=== PATIENT | male | born 1980 | race Caucasian/White ===

== ENCOUNTER → 2023-04-08 10:45 | Outpatient (BNVA) | payer OTHER, SELFPAY | PROVIDERS: PCP Internal Medicine Endocrinology, Diabetes & Metabolism; Visit Provider Physician Assistant | DX: S52.602A Unspecified fracture of lower end of left ulna, initial encounter for closed fracture (principal); W01.0XXA Fall on same level from slipping, tripping and stumbling without subsequent striking against object, initial encounter | CPT/HCPCS: 99204 ==

== ENCOUNTER 2023-04-09 08:30 | Outpatient (AMB) | payer OTHER, SELFPAY ==
--- NOTE | 2023-04-09 08:31 | A.OFFVIS_ITS ---
Intake Vital Signs 04/09/23 08:40 Height 5 ft 10 in Weight 180 lb BMI 25.8 Handedness Left Intake Visit Reasons: FC- LT Wrist DOI 04/08/23 Intake Note: Jermain is a 42 year old left hand dominant male who presents today for a fracture care appointment for his left wrist fx, DOI 04/08/23. Patient reports when he was stripping floors he slipped and fell landing on his back and on his left hand. He states having a lot of stiffness and pain on the dorsal aspect of the wrist. Denies numbness and tingling. Allergies No Known Allergies Allergy (Mild, Verified 04/09/23 08:37) N/A HPI FC- LT Wrist DOI 04/08/23 HPI Details 42-year-old left hand dominant male who presents in the office today, as a new patient, for an evaluation of left wrist pain. The patient reports on 04/18/2023 he was stripping floors when he slipped and fell landing on his back and left hand. He claims to be stiff with pain on the dorsal aspect of the wrist. He denies numbness or tingling. 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 Review of Systems Const All systems reviewed & are unremarkable except as noted in HPI and below Physical Exam Vital Signs: BMI result Body Mass Index 25.8 Const General: cooperative and no acute distress Orientation/consciousness: patient oriented x3 HEENT Head: Yes normal to inspection, Yes normocephalic and Yes atraumatic Eyes General: appearance normal, both eyes and all related structures Resp Effort & Inspection: normal respiratory effort and able to speak in complete sentences Cardio Rate: regular rate Peripheral pulses: Peripheral pulses 2+ throughout GI Palpation (GI): Soft to palpation Skin Lesions: no lesions Rashes: no rashes Neuro General: patient oriented x3 Extrem Other: Left wrist: Mild to moderate circumferential edema. Lacking about 2 cm from making a closed fist. Able to extend fully. Able to pronate, supinate, abduction and adduction without deficits. Denies numbness or tingling. Tenderness to palpation distal radius. Psych Mental Status: mental status grossly normal Office Procedures Casting/Splints [id number] Splint Application Procedure code (CPT) selection complete Assessment & Plan Assessment & Plan (1) Fracture of left distal radius: Comment: intra-articular fracture distal radius Code(s): S52.502A - Unspecified fracture of the lower end of left radius, initial encounter for closed fracture (2) Fracture of styloid process of left ulna: Code(s): S52.612A - Displaced fracture of left ulna styloid process, initial encounter for closed fracture Plan Mr. Pittman is a 42-year-old left hand dominant male who presents in the office today, as a new patient, for an evaluation of left wrist pain. The patient reports on 04/18/2023 he was stripping floors when he slipped and fell landing on his back and left hand. He claims to be stiff with pain on the dorsal aspect of the wrist. He denies numbness or tingling. The patient was placed in a volar splint, off the shelf, while in the office today. This will allow for him to have a decrease in edema. He was given a work note stating no use of left upper extremity until further evaluation with Dr. Cantrell. He will return to the office on Wednesday to be seen by Dr. Cantrell. Follow up will be on 04/13/2023, with Dr. Cantrell, or sooner if needed. X-rays of the left wrist which were obtained while in the office today and were reviewed by me, Vandana Montenegro PA-C, revealed an intra-articular fracture distal radius and ulnar styloid fracture. Patient Instructions: Scribed for Vandana Montenegro PA-C by Demi Burrows medical office manager, on 04/09/2023 at 8:34 am, EST. Your attestation Coding Level of Care Code New Pt Level 4 (52697) Diagnoses Fracture of left distal radius S52.502A Fracture of styloid process of left ulna S52.612A CPT Codes Splint - CPT: 33250-[id number] Splint Application ([id number])
[2023-04-09 08:40] VITALS: BMI 25.8
== END 2023-04-09 09:31 | disposition home or self-care (01) ==
PROVIDERS: PCP Internal Medicine Endocrinology, Diabetes & Metabolism; Visit Provider Physician Assistant
DX: S52.502A Unspecified fracture of the lower end of left radius, initial encounter for closed fracture (principal); S52.612A Displaced fracture of left ulna styloid process, initial encounter for closed fracture; W01.0XXA Fall on same level from slipping, tripping and stumbling without subsequent striking against object, initial encounter; Y99.0 Civilian activity done for income or pay
CPT/HCPCS: 99204

== ENCOUNTER → 2023-04-09 08:30 | Outpatient (BNVA) | payer OTHER, SELFPAY | PROVIDERS: PCP Internal Medicine Endocrinology, Diabetes & Metabolism; Visit Provider Physician Assistant | DX: M25.532 Pain in left wrist (principal); S52.572A Other intraarticular fracture of lower end of left radius, initial encounter for closed fracture; S52.612A Displaced fracture of left ulna styloid process, initial encounter for closed fracture; W01.0XXA Fall on same level from slipping, tripping and stumbling without subsequent striking against object, initial encounter; Y93.E5 Activity, floor mopping and cleaning; Y92.9 Unspecified place or not applicable; Y99.0 Civilian activity done for income or pay | CPT/HCPCS: 99202 ==

== ENCOUNTER 2023-04-13 10:25 | Outpatient (REF) | payer OTHER, SELFPAY ==
--- NOTE | ~2023-04-13 | XR_ITS ---
EXAMINATION: XR WRIST, LEFT CLINICAL INFORMATION: Pain left wrist COMPARISON: Left wrist with scaphoid view 04/08/2023. TECHNIQUE: PA, lateral, and oblique views of the left wrist. FINDINGS: There is a vertical distal radial metaphyseal fracture extending to the articular surface with no callus formation seen yet. Basal distal volar radial bone likely deformity secondary to displacement. It is stable. There is an old ulnar styloid process fracture. The carpal bones are intact. Moderate dorsal soft tissue swelling is present. XR/XR wrist LT min 3V IMPRESSION: 1. Vertical distal radial metaphyseal fracture with intra-articular extension. No callus formation seen yet. There is moderate dorsal soft tissue swelling. 2. There is an old ulnar styloid process fracture.
== END 2023-04-13 10:26 | disposition home or self-care (01) ==
LOC: HO.HOSX 10:25
PROVIDERS: PCP Internal Medicine Endocrinology, Diabetes & Metabolism; Visit Provider Orthopaedic Surgery
DX: S52.502A Unspecified fracture of the lower end of left radius, initial encounter for closed fracture (principal); S52.612A Displaced fracture of left ulna styloid process, initial encounter for closed fracture
CPT/HCPCS: 25600; 73110

== ENCOUNTER 2023-04-13 10:25 | Outpatient (AMB) | payer OTHER, SELFPAY ==
--- NOTE | 2023-04-13 10:33 | A.OFFVIS_ITS ---
Intake Vital Signs 04/13/23 10:34 Height 5 ft 10 in Weight 180 lb BMI 25.8 Intake Visit Reasons: ov-LT Wrist DOI 04/08/23 Intake Note: Jermain 42 yr old male presents today for his left wrist pain/ injury from 04/08/23. Patient reports when he was stripping floors he slipped and fell landing on his back and on his left hand. He states having a lot of stiffness and pain on the dorsal aspect of the wrist. Seen in office with Zi Montenegro on 04/09/23 who gave patient a wrist brace. Patient here for further evaluation with Dr. Cantrell. Allergies No Known Allergies Allergy (Mild, Verified 04/13/23 10:40) N/A HPI ov-LT Wrist DOI 04/08/23 HPI Details Jermain is a 42 year old right hand dominant man who presents for a follow-up of his left wrist injury, DOI: 04/08/23. This is a worker's comp injury. 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 He was seen by workers comp and referred here. He was seen by SUE Ross on 04/09/23 and given a wrist brace to wear. He follows up today with complaints of continued pain and stiffness in his wrist. He says his left wrist has been bothering him with pain & stiffness for years since his initial break. He rides a motorcycle and says this is very difficult for him to do with his left wrist. 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 This was done in here by Dr. Rivas. He has had several surgeries after this. He reports having a right wrist ORIF in the past, which healed well. He has some right wrist stiffness but this is not particularly limiting for him He denies any smoking or vaping. 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 Review of Systems Const All systems reviewed & are unremarkable except as noted in HPI and below Physical Exam Vital Signs: BMI result Body Mass Index 25.8 Const General: cooperative, healthy appearing and no acute distress Orientation/consciousness: patient oriented x3 HEENT Head: Yes normocephalic and Yes atraumatic Eyes EOM: EOMs intact bilaterally Resp Effort & Inspection: normal respiratory effort and able to speak in complete sentences Cardio Jugular venous distension: no JVD Skin General skin exam: turgor normal Rashes: no rashes Neuro General: patient oriented x3 Extrem Other: Evaluation of Left Upper Extremity: The patient is alert, oriented, and in no acute distress Neuro: Median, Ulnar, Radial nerves motor and sensory intact and sensation is normal to the tips of all digits Vascular: Cap refill brisk ROM: He can make a fist and extend all his digits Skin: No lacerations or abrasions. He has a right volar wrist incision consistent with an ORIF General: Mild snuffbox tenderness No tenderness over the scaphoid tubercle Focal swelling over radiocarpal joint Most TTP over dorsal aspect of lunate facet Not really tender over radial styloid No tenderness over he ulnar styloid No tenderness along the entire length of the ulna No pain with proximal forearm squeeze Some swelling directly over the radiocarpal joint, well localized Radiographs: 3 views of the left wrist were taken and viewed by me today in clinic. They show a left intra-articular distal radius fracture involving the lunate facet, which appears to be minimally displaced. However this is an acute on chronic fracture, he has evidence of an old distal radius fracture with some shortening, loss of radial inclination, and roughly about neutral on the lateral view. He also has a new, non-displaced ulnar styloid fracture and a question of a possible non- displaced scaphoid fracture. Psych Appearance: grossly normal Affect: normal affect Attitude: cooperative Office Procedures Fracture Care Details: Left distal radius [id number] Fracture Billing Code: Fracture Billing Code Assessment & Plan Assessment & Plan (1) Fracture of left distal radius: Comment: intra-articular fracture distal radius Code(s): S52.502A - Unspecified fracture of the lower end of left radius, initial encounter for closed fracture (2) Fracture of styloid process of left ulna: Code(s): S52.612A - Displaced fracture of left ulna styloid process, initial encounter for closed fracture Plan Assessment & Plan: 1. Left distal radius fracture involving the lunate facet, intra-articular This is an acute on chronic fracture, with a hx of multiple previous wrist fractures & surgeries With old healed shortening and loss of radial inclination, at neutral on the lateral view 2. Possible left scaphoid waist fracture, non-displaced DOI: 04/08/23 No tenderness over the scaphoid tubercle This is a workplace injury I educated him and his about this condition I discussed operative and non-operative treatment options We will manage this non-operatively He was placed in a short arm cast I discussed activity modification, he is to lift nothing heavier than a cellph one He will work on gentle finger ROM exercises at home He was given a note for work allowing him to return on light duty, with no use of his LUE for at least the next 4 weeks. 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 He thinks he can return to work at the [employer] just pushing buttons with his right hand He will follow up in 3-4 weeks, with X-rays 3V L wrist + scaphoid, OOP Scribed for Brina Cantrell MD by Ángel Weaver, biomedical engineering supervisor, on 04/13/23 at 11:50 AM, EST. Coding Level of Care Code Est Pt Level 3 (19974) Diagnoses Fracture of left distal radius S52.502A Fracture of styloid process of left ulna S52.612A CPT Codes Fracture Care - Fracture Billing Code: Fracture Billing Code ([id number])
[2023-04-13 10:34] VITALS: BMI 25.8
== END 2023-04-13 12:14 | disposition home or self-care (01) ==
PROVIDERS: PCP Internal Medicine Endocrinology, Diabetes & Metabolism; Visit Provider Orthopaedic Surgery
DX: S52.572A Other intraarticular fracture of lower end of left radius, initial encounter for closed fracture (principal); S52.615A Nondisplaced fracture of left ulna styloid process, initial encounter for closed fracture
CPT/HCPCS: 25600; 99213

== ENCOUNTER 2023-05-11 04:59 | Outpatient (REF) | payer OTHER, SELFPAY ==
--- NOTE | ~2023-05-11 | XR_ITS ---
EXAMINATION: XR WRIST, LEFT CLINICAL INFORMATION: Left wrist pain. COMPARISON: 04/13/2023 TECHNIQUE: 4 views of the left wrist. FINDINGS: Generalized osteopenia is present. Again seen is a reticular fracture of the distal radius with some mild impaction. There is mild ventral angulation of the distal fracture fragment. There is some increased sclerosis seen since the prior study which may be secondary to some healing. An old ulnar styloid fracture is again seen. XR/XR wrist LT w scaphoid IMPRESSION: Distal radial fracture with some mild impaction and ventral angulation. Some increased sclerosis has occurred over the past month indicating some healing.
== END 2023-05-11 05:00 | disposition home or self-care (01) ==
LOC: HO.HOSX 04:59
PROVIDERS: Visit Provider Orthopaedic Surgery
DX: M25.532 Pain in left wrist (principal)
CPT/HCPCS: 73110

== ENCOUNTER 2023-05-12 09:48 | Outpatient (AMB) | payer OTHER, SELFPAY ==
[2023-05-12 10:21] VITALS: BMI 25.8
--- NOTE | 2023-05-12 10:21 | A.OFFVIS_ITS ---
Intake Vital Signs 05/12/23 10:21 Height 5 ft 10 in Weight 180 lb BMI 25.8 Intake Visit Reasons: ov-LT Wrist DOI 04/08/23 cast off/xrays Intake Note: Jermain 42 yr old male presents today for his follow up visit for his left wrist injury from 04/08/23 s/p stripping floors, slipped and fell landing on his back & on his left hand. Cast removed and xrays updated in office. Allergies No Known Allergies Allergy (Mild, Verified 05/12/23 10:28) N/A HPI ov-LT Wrist DOI 04/08/23 cast off/xrays HPI Details Jermain is a 42 year old right hand dominant man who presents for a follow-up of his left distal radius fracture, DOI: 04/08/23. This is a worker's comp injury. 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 He was seen by workers comp and referred here. He says his wrist pain has improved. 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 This was done in here by Dr. Rivas. He has had several surgeries after this. He says his left wrist has been bothering him with pain & stiffness for years since his initial break. He rides a motorcycle and says this is very difficult for him to do with his left wrist. He reports having a right wrist ORIF in the past, which healed well. He has some right wrist stiffness but this is not particularly limiting for him He denies any smoking or vaping. 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 Physical Exam Vital Signs: BMI result Body Mass Index 25.8 Const General: cooperative, healthy appearing and no acute distress Orientation/consciousness: patient oriented x3 HEENT Head: Yes normocephalic and Yes atraumatic Eyes EOM: EOMs intact bilaterally Resp Effort & Inspection: normal respiratory effort and able to speak in complete sentences Cardio Jugular venous distension: no JVD Skin General skin exam: turgor normal Rashes: no rashes Neuro General: patient oriented x3 Extrem Other: Evaluation of Left Upper Extremity: The patient is alert, oriented, and in no acute distress Neuro: Median, Ulnar, Radial nerves motor and sensory intact and sensation is normal to the tips of all digits Vascular: Cap refill brisk ROM: He can make a fist and extend all his digits He can pronate to ~70 degrees He can supinate to neutral Skin: No lacerations or abrasions. He has a right volar wrist incision consistent with an ORIF General: No snuffbox or scaphoid tubercle tenderness No tenderness over the fracture site Radiographs: 3 views of the left wrist + a scaphoid view were taken and viewed by me today in clinic. They show a left intra-articular distal radius fracture involving the lunate facet, which appears to be minimally displaced with good evidence of interval bony healing and no intra-articular step-off. He also has ~3 degrees dorsal tilt seen on the lateral view. However this is an acute on chronic fracture, he has evidence of an old distal radius fracture with some shortening, loss of radial inclination, and roughly about neutral on the lateral view. He also has a new, non-displaced ulnar styloid fracture and a question of a possible non-displaced scaphoid fracture. Psych Appearance: grossly normal Affect: normal affect Attitude: cooperative Assessment & Plan Assessment & Plan (1) Fracture of left distal radius: Comment: intra-articular fracture distal radius Code(s): S52.502A - Unspecified fracture of the lower end of left radius, initial encounter for closed fracture (2) Fracture of styloid process of left ulna: Code(s): S52.612A - Displaced fracture of left ulna styloid process, initial encounter for closed fracture Plan Assessment & Plan: 1. Left distal radius fracture involving the lunate facet, intra-articular This is an acute on chronic fracture, with a hx of multiple previous wrist fractures & surgeries With old healed shortening and loss of radial inclination, at neutral on the lateral view 2. Possible left scaphoid waist fracture, non-displaced DOI: 04/08/23 No tenderness over the scaphoid tubercle This is a workplace injury I educated him and his about this condition I discussed operative and non-operative treatment options We will manage this non-operatively He was fitted for a velcro to be worn like a cast except for a showering, until his next appointment I discussed activity modification, he is to lift nothing heavier than a cellphone He will continue to work on finger ROM exercises at home He will begin to work on gentle wrist pronosupination while in his wrist splint. I demonstrated supination exercises he can perform He was given a note for work allowing him to continue on light duty, with a 2lb weight limit with his LUE for at least the next 4 weeks. 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 He is going to speak with his school employer about possible light duty. He has been working his part-time job at a [employer] I ordered a CT scan of his left wrist, with fine cuts through the scaphoid, to assess for a possible scaphoid fracture He will follow up when completed for review. This should be a 30 minute appointment Scribed for Brina Cantrell MD by Ángel Weaver, medical coordinator pesticide use, on 05/12/23 at 11:00 AM, EST. Orders: Orders XR wrist LT w scaphoid Today M25.532 - Pain in left wrist CT wrist LT wo IV con Today S52.502A - Unspecified fracture of the lower end of left radius, initial encounter for closed fracture, S52.612A - Displaced frac ture of left ulna styloid process, initial encounter for closed fracture Coding Level of Care Code Global (25299) Diagnoses Fracture of left distal radius S52.502A Fracture of styloid process of left ulna S52.612A
== END 2023-05-12 11:09 | disposition home or self-care (01) ==
PROVIDERS: PCP Internal Medicine; Visit Provider Orthopaedic Surgery
DX: S52.502A Unspecified fracture of the lower end of left radius, initial encounter for closed fracture (principal); S52.612A Displaced fracture of left ulna styloid process, initial encounter for closed fracture
CPT/HCPCS: 99024

== ENCOUNTER → 2023-05-12 09:48 | Outpatient (BNVA) | payer OTHER, SELFPAY | PROVIDERS: PCP Internal Medicine; Visit Provider Orthopaedic Surgery ==

== ENCOUNTER 2023-05-21 15:31 | Outpatient (REF) | payer OTHER, SELFPAY ==
--- NOTE | ~2023-05-21 | CT_ITS ---
EXAMINATION: CT WRIST WITHOUT CONTRAST, LEFT CLINICAL INFORMATION: S52.612A - Displaced fracture of left ulna styloid process, initial encounter. Additional Notes/Special Instructions Distal radius and distal ulna acute on subacute fractures that are healing. Please evaluate for possible occult scaphoid fracture, fine cuts through scaphoid is what is needed. COMPARISON: Radiograph dated 05/13/2023 TECHNIQUE: Multidetector volumetric imaging was obtained through the left wrist without contrast. Multiplanar reformatted images in coronal and sagittal orientations were submitted. This CT examination was performed using dose optimization techniques as appropriate, variously including the following: *Automated exposure control *Adjustment of mA and/or kV according to patient size (this includes techniques or standardized protocols for targeted exams where dose is matched to indication/reason for exam; i.e. extremities or head) *Use of iterative reconstruction technique DLP: 114 mGy-cm FINDINGS: Bones are osteopenic. There is a subacute to chronic comminuted intra-articular fracture at the distal radius with loss of radial height and inclination is a result of impaction along the fracture lines. There is osseous bridging, sclerosis, and remodeling along the fracture lines, consistent with incomplete healing. Articular cortical step-off measures up to 2 mm dorsally. There is dorsal tilt of the distal radial articular surface, measuring 22 degrees . There are 2 chronic appearing fractures of the ulnar styloid, one of which appears partially united. No additional fractures are identified. The scaphoid is intact. 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 No erosions. Soft tissues are swollen at the wrist. There is a joint effusion. CT/CT wrist LT wo IV con IMPRESSION: 1. Subacute to chronic comminuted intra-articular fracture of the distal radius with mild articular cortical step-off and dorsal tilt of the distal radial articular surface. 2. Chronic ulnar styloid fractures. 3. No acute fracture or malalignment at the scaphoid. 4. 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
== END 2023-05-21 15:32 | disposition home or self-care (01) ==
LOC: HO.CT 15:31
PROVIDERS: Visit Provider Orthopaedic Surgery
DX: S52.502A Unspecified fracture of the lower end of left radius, initial encounter for closed fracture (principal); S52.612A Displaced fracture of left ulna styloid process, initial encounter for closed fracture
CPT/HCPCS: 73200

== ENCOUNTER 2023-05-25 10:21 | Outpatient (AMB) | payer OTHER, SELFPAY ==
--- NOTE | 2023-05-25 10:27 | MHC.OFFVIS ---
Intake Intake Visit Reasons: OV-LT Wrist DOI 04/08/23 Intake Note: Jermain 42 yr old male who is left hand dominant, presents today for his CT review of his left wrist to assess for a possible scaphoid fracture. Allergies No Known Allergies Allergy (Mild, Verified 05/25/23 10:35) N/A HPI OV-LT Wrist DOI 04/08/23 HPI Details Jermain is a 42 year old left hand dominant man who presents for a CT scan review of his left distal radius fracture, DOI: 04/08/23. This is a worker's comp injury. 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 He was seen by workers comp and referred here. He has occasional pain that radiates from his wrist up his arm. He says he has been wearing his velcro wrist splint, as instructed. He has been working on wrist ROM exercises in his splint at home He denies any smoking or vaping. 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 He has not been working as a vice president global advertising sales as he cannot return on light duty. 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 Physical Exam Const General: cooperative, healthy appearing and no acute distress Orientation/consciousness: patient oriented x3 HEENT Head: Yes normocephalic and Yes atraumatic Eyes EOM: EOMs intact bilaterally Resp Effort & Inspection: normal respiratory effort and able to speak in complete sentences Cardio Jugular venous distension: no JVD Skin General skin exam: turgor normal Rashes: no rashes Neuro General: patient oriented x3 Extrem Other: Evaluation of Left Upper Extremity: The patient is alert, oriented, and in no acute distress Neuro: Median, Ulnar, Radial nerves motor and sensory intact and sensation is normal to the tips of all digits Vascular: Cap refill brisk ROM: He can make a tight fist with good strength and no pain, and extend all his digits He can pronate to ~80 degrees He can supinate to ~45 degrees H can flex to ~45 degrees He can extend to ~40 degrees Skin: No lacerations or abrasions. He has a right volar wrist incision consistent with an ORIF General: No snuffbox or scaphoid tubercle tenderness Fracture site not particularly tender DRUJ is stable CT scan: CT/CT wrist LT wo IV con IMPRESSION: 1.? Subacute to chronic comminuted intra-articular fracture of the distal radius with mild articular cortical step-off and dorsal tilt of the distal radial articular surface. 2.? Chronic ulnar styloid fractures. 3.? No acute fracture or malalignment at the scaphoid. 4.? 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 ? Dictated By: ivonne 05/22/23 Psych Appearance: grossly normal Affect: normal affect Attitude: cooperative Assessment & Plan Assessment & Plan (1) Fracture of left distal radius: Comment: intra-articular fracture distal radius Code(s): S52.502A - Unspecified fracture of the lower end of left radius, initial encounter for closed fracture (2) Fracture of styloid process of left ulna: Code(s): S52.612A - Displaced fracture of left ulna styloid process, initial encounter for closed fracture Plan Assessment & Plan: 1. Left distal radius fracture involving the lunate facet, intra-articular DOI: 04/08/23 This is a workplace injury 2. Concern at last visit regarding Possible occult left scaphoid fracture No scaphoid waist fracture seen on CT scan This is an acute on chronic distal radius fracture, with a hx of multiple previous wrist fractures & surgeries With old healed shortening and loss of radial inclination, and CT scan shows ~15 degrees dorsal tilt The fracture appears that it is still healing. I educated him about this condition He will continue to wear his velcro wrist splint only with activities prone to falling, but is to discontinue it with daily activity and at night. I discussed activity modification, he will continue to work on wrist ROM exercises at home I ordered OT hand therapy to work on wrist ROM and normalizing function He was given a note for work instructing him to continue on light duty, with a 2lb weight limit with his LUE for the next 4 weeks. 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 He does say he performs most of his heavy work with his right hand He has been able to work at the [employer] where the physical part of his job is pushing a button. 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 He will follow up in 4 weeks for a ROM check. I anticipate a return to full duty at his next appointment This can be done with a PA. No X-rays needed unless he has new pain Scribed for Brina Cantrell MD by Ángel Weaver, medical surgical tech, on 05/25/23 at 11:00 AM, EST. Orders: Orders OT Evaluation and Treatment Today S52.502A - Unspecified fracture of the lower end of left radius, initial encounter for closed fracture, S52.612A - Displaced fracture of left ulna styloid process, initial encounter for closed fracture Coding Level of Care Code Global (08704) Diagnoses Fracture of left distal radius S52.502A Fracture of styloid process of left ulna S52.612A
== END 2023-05-25 11:13 | disposition home or self-care (01) ==
PROVIDERS: PCP Internal Medicine; Visit Provider Orthopaedic Surgery
DX: S52.502A Unspecified fracture of the lower end of left radius, initial encounter for closed fracture (principal); S52.612A Displaced fracture of left ulna styloid process, initial encounter for closed fracture
CPT/HCPCS: 99024

== ENCOUNTER → 2023-05-25 10:21 | Outpatient (BNVA) | payer OTHER, SELFPAY | PROVIDERS: PCP Internal Medicine; Visit Provider Orthopaedic Surgery ==

== ENCOUNTER 2023-06-16 10:30 | Outpatient (RCR) | payer OTHER, SELFPAY ==
--- NOTE | 2023-06-08 11:11 | MHC.OT.EP ---
[address] [phone] Occupational Therapy Plan of Care Patient Name: Jermain Pittman Date of Evaluation: 06/08/23 Diagnosis: Left distal radius fracture, with a hx of multiple previous wrist fractures & surgeries With old healed shortening and loss of radial inclination, and CT scan shows ~15 degrees dorsal tilt The fracture appears that it is still healing. Pain Location: 3/10 Ulnar wrist and base thumb Pain Score: 3 Pain Scale Used: Numeric (0 - 10) Aggravating Factors: Pushing on left hand , pinching and gripping. Alleviating Factors: Avoiding what is uncomfortable Assessment: Pt is a 42 yo male 9 weeks s/p left DR fracture with underlying old wrist fractures. 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 Pt will benefit from OT to progress strengthening and functional use of his left dominant hand and wrist. 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 Thank you once again for your referral.
--- NOTE | 2023-06-24 11:47 | MHC.OT.DC ---
[address] [phone] F: [phone] Occupational Therapy Discharge Note Patient Name: Jermain Pittman Provider: Brina Cantrell Diagnosis: Left distal radius fracture, with a hx of multiple previous wrist fractures & surgeries With old healed shortening and loss of radial inclination, and CT scan shows ~15 degrees dorsal tilt The fracture appears that it is still healing. Date of Surgery: Date of Evaluation: 06/08/23 Date of Discharge: 06/24/23 Treatments to Date: 3 Cancellations to Date: 1 No Shows to Date: 2 Discharge Status: Recommend MD Follow-up Visit Non-compliance Discharge Summary: Pain low /10, ROM WFL . Pt is indep with his HEP for ROM and gentle strengthening. Electronically Signed By: Radha Blas OT CHT CLT Reviewed/agree with student documentation: Therapist: Please Sign and return to therapist, thank you for your referral.
== END 2023-06-24 11:48 | disposition home or self-care (01) ==
LOC: HO.OT 10:30
PROVIDERS: PCP Internal Medicine; Visit Provider Orthopaedic Surgery
DX: S52.612D Displaced fracture of left ulna styloid process, subsequent encounter for closed fracture with routine healing (principal); S52.502D Unspecified fracture of the lower end of left radius, subsequent encounter for closed fracture with routine healing
CPT/HCPCS: 97110; 97166

== ENCOUNTER 2023-06-22 09:47 | Outpatient (AMB) | payer OTHER, SELFPAY ==
[2023-06-22 09:55] VITALS: BMI 25.8
--- NOTE | 2023-06-22 09:55 | MHC.OFFVIS ---
Intake Vital Signs 06/22/23 09:55 Height 5 ft 10 in Weight 180 lb BMI 25.8 Handedness Left Intake Visit Reasons: OV-LT Wrist DOI 04/08/23 Intake Note: Jermain is a 42 year old left hand dominant male who presents today for a follow up appointment for his left wrist fx, DOI 04/08/23. Patient reports having discomfort on the ulnar side of the hand. He states that his wrist feels better than before. Denies numbness and tingling. Allergies No Known Allergies Allergy (Mild, Verified 06/22/23 09:55) N/A HPI OV-LT Wrist DOI 04/08/23 HPI Details 42-year-old left hand dominant male who presents in the office today for a follow up of left distal radius fracture. The patient reports discomfort on the ulnar side of the left hand. He states his wrist feels better then before. He denies numbness or tingling. This is a worker?s compensation injury. 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 Review of Systems Const All systems reviewed & are unremarkable except as noted in HPI and below Physical Exam Vital Signs: BMI result Body Mass Index 25.8 Const General: cooperative, healthy appearing and no acute distress Orientation/consciousness: patient oriented x3 HEENT Head: Yes normocephalic and Yes atraumatic Eyes EOM: EOMs intact bilaterally Resp Effort & Inspection: normal respiratory effort and able to speak in complete sentences Cardio Jugular venous distension: no JVD Rate: regular rate Peripheral pulses: Peripheral pulses 2+ throughout GI Palpation (GI): Soft to palpation Skin General skin exam: turgor normal Lesions: no lesions Rashes: no rashes Neuro General: patient oriented x3 Extrem Other: Prior surgical scar over the volar aspect of the wrist consistant with ORIF No snuffbox or scaphoid tubercle tenderness No tenderness to palpation over the fracture site DRUJ is stable Sensation intact Cap refill brisk Able to make a fist with good strength and no pain, and extend all his digits to end range. He can pronate to ~80 degrees He can supinate to ~45 degrees H can flex to ~45 degrees He can extend to ~40 degrees Psych Appearance: grossly normal Affect: normal affect Attitude: cooperative Assessment & Plan Assessment & Plan (1) Fracture of left distal radius: Comment: intra-articular fracture distal radius Code(s): S52.502A - Unspecified fracture of the lower end of left radius, initial encounter for closed fracture Qualifiers: Encounter type: subsequent encounter Fracture healing: with routine healing Fracture morphology: unspecified fracture morphology Fracture type: closed Qualified Code(s): S52.502D - Unspecified fracture of the lower end of left radius, subsequent encounter for closed fracture with routine healing (2) Fracture of styloid process of left ulna: Code(s): S52.612A - Displaced fracture of left ulna styloid process, initial encounter for closed fracture Qualifiers: Encounter type: subsequent encounter Fracture alignment: nondisplaced Fracture healing: with routine healing Fracture type: closed Qualified Code(s): S52.615D - Nondisplaced fracture of left ulna styloid process, subsequent encounter for closed fracture with routine healing Plan Mr. Pittman is a 42-year-old left hand dominant male who presents in the office today for a follow up of left distal radius fracture. The patient reports discomfort on the ulnar side of the left hand. He states his wrist feels better then before. He denies numbness or tingling. This is a worker?s compensation injury. 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 Follow up will be PRN, or sooner if needed. Patient Instructions: Scribed for Vandana Montenegro PA-C by Demi Burrows bio medical technician, on 06/22/2023 at 9:50 am, EST. Coding Level of Care Code Est Pt Level 3 (51881) Diagnoses Closed fracture of distal end of left radius with routine healing, unspecified fracture morphology, subsequent encounter S52.502D Encounter type: subsequent encounter Fracture healing: with routine healing Fracture morphology: unspecified fracture morphology Fracture type: closed Closed nondisplaced fracture of styloid process of left ulna with routine healing, subsequent encounter S52.615D Encounter type: subsequent encounter Fracture alignment: nondisplaced Fracture healing: with routine healing Fracture type: closed
== END 2023-06-22 10:07 | disposition home or self-care (01) ==
PROVIDERS: PCP Internal Medicine; Visit Provider Physician Assistant
DX: S52.502D Unspecified fracture of the lower end of left radius, subsequent encounter for closed fracture with routine healing (principal); S52.615D Nondisplaced fracture of left ulna styloid process, subsequent encounter for closed fracture with routine healing; Z04.3 Encounter for examination and observation following other accident
CPT/HCPCS: 99024

== ENCOUNTER → 2023-06-22 09:47 | Outpatient (BNVA) | payer OTHER, SELFPAY | PROVIDERS: PCP Internal Medicine; Visit Provider Physician Assistant | DX: S52.502D Unspecified fracture of the lower end of left radius, subsequent encounter for closed fracture with routine healing (principal); S52.615D Nondisplaced fracture of left ulna styloid process, subsequent encounter for closed fracture with routine healing | CPT/HCPCS: 99212 ==

== ENCOUNTER 2023-10-01 09:19 | Outpatient (REF) | payer OTHER, SELFPAY ==
--- NOTE | ~2023-10-01 | XR_ITS ---
EXAMINATION: XR HAND, RIGHT CLINICAL INFORMATION: Pain COMPARISON: Chest radiograph dated 11/15/2014 TECHNIQUE: PA, lateral, and oblique views of the right hand. FINDINGS: Nondisplaced diagonally oriented fracture of the diaphysis of the fourth proximal phalanx with surrounding soft tissue edema. Minimally displaced fracture of the proximal end of the fifth middle phalanx with extension into the proximal interphalangeal joint space with associated soft tissue edema. Intact plate and screw fixation hardware within the distal radial diaphysis and epiphysis, unchanged in position. No periprosthetic lucency. 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 No acute fracture or dislocation in the wrist. Redemonstration of tiny ossific focus just distal to the scaphoid. The joint spaces are maintained. XR/XR hand RT min 3V IMPRESSION: 1. Minimally displaced fracture of the fifth middle phalanx with extension into the proximal interphalangeal joint space and associated soft tissue edema. 2. Nondisplaced fracture of the diaphysis of the fourth proximal phalanx with associated soft tissue edema. 3. Intact plate and screw fixation of the distal radius.
== END 2023-10-01 09:20 | disposition home or self-care (01) ==
LOC: HO.HOSX 09:19
PROVIDERS: Visit Provider Physician Assistant
DX: Z13.89 Encounter for screening for other disorder (principal)

== ENCOUNTER 2023-10-05 10:07 | Outpatient (AMB) | payer OTHER, SELFPAY ==
--- NOTE | 2023-10-05 10:13 | MHC.OFFVIS ---
Intake Vital Signs 10/05/23 10:15 Height 5 ft 10 in Weight 180 lb BMI 25.8 Intake Visit Reasons: fc-Displaced fx of middle phalanx rt little finger Intake Note: Jermain is a 43 year old left hand dominant male who presents today for a evaluation of his right little and ring fingers fx, DOI 09/26/22. Patient reports he slipped and he tried catching himself with his right hand. He states his pain is not unbearable but he is not able to bend. Having off and on numbness and tingling in the volar aspect of the wrist. Allergies No Known Allergies Allergy (Mild, Verified 10/05/23 10:14) N/A HPI fc-Displaced fx of middle phalanx rt little finger HPI Details 43-year-old left hand dominant male who presents in the office today for an evaluation of right ring and little finger pain. The patient was seen at Urgent Care on 09/30/2023 status post a slip and fall when he tried to catch himself with his right hand that occurred on 09/26/2023. He was placed in a dorsal splint to the 4th and 5th digits of the right hand for a right little finger intra-articular fracture of the middle phalanx at the PIP. He states the pain is not unbearable, but he is not able to bend the finger. He claims to have intermittent numbness and tingling in the volar aspect of his right wrist. He confirms breaking his ring finger about a year ago, 2022. He states he has discomfort in the right ring finger. He confirms tingling with ROM in the digit. Patient has no known allergy history. Patient is currently taking, as follows: -Atorvastatin 10 mg PO Daily Patient has a medical history, as follows: -High cholesterol -Osteoporosis Patient has a surgical history, as follows: -Right wrist ORIF; [address] 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 Ecchymosis along the volar aspect of the proximal middle and distal phalanx. Tenderness to palpation over the proximal phalanx at the fracture site. Able to slightly flex and extend, but is limited due to pain. Sensation intact. Capillary refill is brisk. Office Procedures Casting/Splints 89180-Hinizj Splint application (ulnar gutter splint ) Procedure code (CPT) selection complete Fracture Care Fracture Billing Code: Fracture Billing Code Assessment & Plan Assessment & Plan (1) Fracture of phalanx of right little finger: Code(s): S62.606A - Fracture of unspecified phalanx of right little finger, initial encounter for closed fracture Qualifiers: Encounter type: initial encounter Fracture alignment: displaced Fracture type: closed Phalanx: middle Qualified Code(s): S62.626A - Displaced fracture of middle phalanx of right little finger, initial encounter for closed fracture (2) Fracture of phalanx of right ring finger: Code(s): S62.604A - Fracture of unspecified phalanx of right ring finger, initial encounter for closed fracture Qualifiers: Encounter type: initial encounter Fracture alignment: nondisplaced Fracture type: closed Phalanx: unspecified phalanx Qualified Code(s): S62.604A - Fracture of unspecified phalanx of right ring finger, initial encounter for closed fracture Plan Mr. Pittman is a 43-year-old left hand dominant male who presents in the office today for an evaluation of right ring and little finger pain. The patient was seen at Urgent Care on 09/30/2023 status post a slip and fall when he tried to catch himself with his right hand that occurred on 09/26/2023. He was placed in a dorsal splint to the 4th and 5th digits of the right hand for a right little finger intra-articular fracture of the middle phalanx at the PIP. He states the pain is not unbearable, but he is not able to bend the finger. He claims to have intermittent numbness and tingling in the volar aspect of his right wrist. He confirms breaking his ring finger about a year ago, 2022. He states he has discomfort in the right ring finger. He confirms tingling with ROM in the digit. Patient has no known allergy history. Patient is currently taking, as follows: -Atorvastatin 10 mg PO Daily Patient has a medical history, as follows: -High cholesterol -Osteoporosis Patient has a surgical history, as follows: -Right wrist ORIF; [address] 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 Dr. Cantrell was available to review the imaging and case with me while in the office today and a collaborative treatment plan was made. I discussed in detail the procedure and what to expect pre and post operatively. We discussed the risks, benefits and alternatives to the surgery as well as the rehabilitation course. The risks; which include, but are not limited to infection, bleeding, nerve injury, ongoing pain, swelling, and stiffness, perioperative risk of injury to bones and soft tissues, and blood clots. I have answered all questions and with their understanding they have consented to move forward with an open versus closed reduction, internal fixation of the right little finger to be performed by Dr. Brina Cantrell on 10/07/2023. He was placed in an ulnar gutter splint custom molded while in the office today. The patient was given a work note stating he will remain out of work pending surgery. He was placed back into the splint while in the office today. Follow up will be at the post operative appointment, or sooner if needed. X-rays of the right hand which were obtained while in the office today and were reviewed by me, Vandana Montenegro PA-C, redemonstration of a middle phalanx fracture involving greater than 25% of the articulating surface. Orders: Orders XR hand RT min 3V Today M79.643 - Pain in unspecified hand Patient Instructions: Scribed for Vandana Montenegro PA-C by Demi Burrows certified medical asst, on 10/05/2023 at 10:09 am, EST. Coding Level of Care Code Est Pt Level 4 (10938) Diagnoses Closed displaced fracture of middle phalanx of right little finger, initial encounter S62.626A Encounter type: initial encounter Fracture alignment: displaced Fracture type: closed Phalanx: middle Closed nondisplaced fracture of phalanx of right ring finger, unspecified phalanx, initial encounter S62.604A Encounter type: initial encounter Fracture alignment: nondisplaced Fracture type: closed Phalanx: unspecified phalanx CPT Codes Splint - CPT: 94243-Zhhjoy Splint application ([id number]) Fracture Care - Fracture Billing Code: Fracture Billing Code ([id number])
[2023-10-05 10:15] VITALS: BMI 25.8
== END 2023-10-05 11:05 | disposition home or self-care (01) ==
PROVIDERS: PCP Internal Medicine; Visit Provider Physician Assistant
DX: S62.626A Displaced fracture of middle phalanx of right little finger, initial encounter for closed fracture (principal); S62.645A Nondisplaced fracture of proximal phalanx of left ring finger, initial encounter for closed fracture
CPT/HCPCS: 26720; 99214

== ENCOUNTER → 2023-10-05 10:07 | Outpatient (BNVA) | payer OTHER, SELFPAY | PROVIDERS: PCP Internal Medicine; Visit Provider Physician Assistant | DX: S62.626A Displaced fracture of middle phalanx of right little finger, initial encounter for closed fracture (principal); S62.604A Fracture of unspecified phalanx of right ring finger, initial encounter for closed fracture | CPT/HCPCS: 26720; 73130; 99212 ==

== ENCOUNTER 2023-10-07 07:43 | Day surgery (SDC) | payer OTHER, SELFPAY ==
--- NOTE | 2023-10-06 09:40 | HO.ANESPROP2 ---
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
[2023-10-07] VITALS (10 sets, daily range): BP systolic 121–150; BP diastolic 67–97; PULSE 88–108; RESP 10–20; TEMP 36.3–36.9; O2SAT 96–98; BMI 25.1
--- NOTE | ~2023-10-07 | FL_ITS ---
EXAMINATION: XR FLUOROSCOPY WITH IMAGES CLINICAL INFORMATION: ORIF right fifth finger. COMPARISON: Prior radiographs, most recently 10/05/2023. TECHNIQUE: Fluoroscopy Supervised By: Shellie Cantrell. Fluoroscopy Time: 121.72. Cumulative Dose: 2.7740 mGy. DAP: 0.1676 Gycm2. Images: 14. FINDINGS: A mildly displaced oblique fracture with intra-articular extension is noted at the volar aspect of the base of the right fifth middle phalanx. There is application of a K wire to the fifth proximal interphalangeal joint. FL/FL guidance in OR IMPRESSION: Intraoperative fluoroscopic guidance is provided during ORIF for a fracture of the proximal phalanx of the base of the right fifth middle phalanx. Please see the patient's Operative Report for full procedural details.
--- NOTE | 2023-10-07 07:56 | P.OP_ITS ---
Operative Note Operative Note Date of Service: 10/07/23 Narrative: Operative Note Narrative: Preop diagnosis: 1. Right small finger intra-articular middle phalanx base fracture with displacement Postop diagnosis: Same Procedure: 1. Right small finger middle phalanx fracture open reduction internal fixation, centrally with a dorsal blocking type pin Surgeon: Brina Cantrell MD Anesthesia: General Anesthesia Findings: The small finger fracture through the volar ulnar base of the middle phalanx. Patient also noted to have evidence of mild supination deformity of the ring finger, presumed to be at what appears to be a spiral oblique fracture of the distal aspect of the proximal phalanx. Attempts at reduction however were unsuccessful, thus it appears this may be an old and healed injury. Implants: 0.0 4 5 K-wire x1 Tourniquet time: 65 minutes EBL: 5.0 ml Specimen: None Drains: None Complications: None Disposition: Brought to the recovery room in stable condition Plan: Follow-up in 10-14 days for wound check, suture removal and pre clinic radiographs. Anticipate placement in a short-arm finger spica cast until 4 weeks postop . Anticipate early OT hand therapy consult to work on range of motion Indications: The patient is a 43 year old man with a right small finger intra- articular middle phalanx base fracture with displacement . The risks and benefits of operative treatment, including but not limited to risk of damage to blood vessels, nerves, tendons, infection, recurrence, persistent pain or numbness, incomplete resolution of preoperative symptoms, or need for further surgery were discussed with the patient and they wished to proceed with surgery. Procedure: Once consent was obtained patient was brought back to the operating suite and placed in the operating table in a supine position. . Perioperative antibiotics and anesthesia was administered by the anesthesia team. A tourniquet was applied to the proximal aspect of the right upper extremity and the limb was prepped and draped in a standard surgical fashion. The limb was elevated exsanguinated with Esmarch bandage and the tourniquet inflated to 250 mm of mercury for a total tourniquet time of 65 minutes. The FluoroScan was used throughout our case to assess our reduction and placement of all implants. I made a mid lateral incision centered over the ulnar aspect of the right small finger PIP joint. The incision was made through the skin to the subcutaneous tissues using a 15. Blade. I then carefully dissected down to the ulnar aspect of the proximal and middle phalanxes about the ulnar aspect of the PIP joint. Care was taken to protect the neurovascular bundle and the volar flap of tissues. The fracture was evaluated on multiple fluoroscopic images. It was found to create a fragment that was both volar and ulnar at the base of the middle phalanx. An open reduction was performed and the fracture held in a reduced position using a 2 point reduction clamp. I then decided to place an AcuTrak 2 micro headless compression screw. The K-wire from the AcuTrak 2 micro headless compression screw set was then advanced from the volar ulnar base of the fragment, across the fracture site and into the dorsal radial aspect of the shaft. Once satisfied with the position of this K-wire I then over-reamed with the long narrow Reamer from the AcuTrak 2 micro headless compression screw set. I had measured for an 8 mm screw, and the 8 mm screw was advanced and secured across the fracture site. Unfortunately, we had difficulty getting the screwdriver to release her the 8 mm screw. When trying to remove the screwdriver from the 8 mm screw, it pulled the screw out of the middle phalanx. Indeed even on the back table the screwdriver was difficult to disengage from the screw. I decided that increasing to a larger screw, which would be the AcuTrak 2 mini screw would be too large for this rather small volar ulnar fragment. Using K-wires to secure the fragment itself was not really possible because of the hole from the screw being present in the small fragment. I thus brought the PIP joint being to about 90 degrees of flexion, which reduced our fragment to the shaft. I then placed a 0.045 K-wire through the dorsal base of the middle phalanx and across the PIP joint into the distal end of the proximal phalanx. This was essentially acting much like a dorsal blocking pin, holding our fracture in a reduced position to allow for healing. I was satisfied with our reduction and placement of the implant on multiple fluoroscopic images. The pin was then bent cut short had pin caps applied. During the case, I appreciated that there was a bit of a supination deformity in the right ring finger. There was some evidence of a spiral oblique fracture in the distal aspect of the proximal phalanx. I attempted to reduce the supination deformity by applying some pronation across the proximal phalanx, also using a 0.045 K-wire which was passed from the distal ulnar aspect of the proximal phalanx across the fracture site. However, we failed to achieve any improvement in the rotation, and ultimately I feel that this is a fracture that has already healed in place. Thus the K-wire was removed and we elected to not proceed with any further treatment which would likely have necessitated an osteotomy at this point. The Supination deformity is fairly mild and does not produce any crossover of the digits in either extension or flexion, so I believe the patient will do well. The tourniquet was deflated and hemostasis obtained with a brief period of local pressure and bipolar electrocautery. The wound was copiously irrigated with normal saline. The skin edges were reapproximated with 5-0 nylon suture. Some 0.5% plain Marcaine was used for an ulnar block by infiltrating about the ulnar nerve at the wrist, and also placing some about the base of the small finger for postop pain control. A sterile dressing and short-arm finger spica splint were applied. The patient appears to have tolerated the procedure well and with no complications. All digits were well vascularized conclusion of the case.
--- NOTE | 2023-10-07 08:29 | P.CONAN_ITS ---
[facility] Active Problems Active Problems: All Active Problems (Updated 10/07/23 @ 08:20 by Sera Hunt RN) Fracture of phalanx of right ring finger (Acute) Fracture of phalanx of right little finger (Acute) Fracture of styloid process of left ulna (Acute) Fracture of left distal radius (Acute) Past Medical History Medical History History of fracture of tibia History of high cholesterol Surgical History Surgical History Hx of vasectomy Hx of hernia repair H/O wrist surgery History of Problems with Anesthesia: No Social History Social History Alcohol intake: former Patient Tobacco Use Status: Never used Tobacco Are you DNR?: No Advance Directives: No Advance Directives Information Provided: Yes Nutrition Risks: No Nutritional Risk Current occupational status: employed 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 Meds Allergies Allergy/AdvReac Type Severity Reaction Status Date / Time No Known Allergies Allergy Mild N/A Verified 10/05/23 10:14 Active Medications: Current Medications Fentanyl (Fentanyl Citrate/Pf 100 Mcg/2 Ml Vial) 25 mcg IVPUSH Q5M PRN; Protocol PRN Reason: Pain, Moderate(Pain Scale 4-6) Lactated Ringer's (Lr) 1,000 mls @ 100 mls/hr IVCONT .Q10H MIREYA Ondansetron HCl (Ondansetron Hcl 4 Mg/2 Ml Vial) 4 mg IVPUSH ONCE PRN PRN Reason: Nausea and Vomiting Home Medications Medication Instructions Recorded Confirmed Last Taken Type atorvastatin 10 mg tablet 10 mg PO DAILY 04/09/23 10/07/23 09/30/23 History Exam Height,Weight and Vital Signs: Height 5 ft 10 in Weight 79.379 kg Last Vital Signs Temp 97.3 F 10/07/23 08:18 Pulse 92 10/07/23 08:18 Resp 20 10/07/23 08:18 BP 150/97 H 10/07/23 08:18 Pulse Ox 98 10/07/23 08:18 O2 Del Method Room Air 10/07/23 08:18 Airway Mallampati Class: III TM Dist: >3cm Neck ROM: Full Loose/Missing/Broken Teeth: No (rrr) Heart: clear Assessment and Plan Final Anesthetic Review History of Problems with Anesthesia: No NPO: Yes ASA Class: II Final Preanesthetic Review: No Changes in Pt Med Stat, Meds/Allgs Chart Reviewed, Consent Obtained/Reviewed and Anes Risks/Benef Reviewed Patient Risk: Low Procedure Risk: Low Anesthetic Plan Anesthetic Plan: GA Disposition: Standard PACU
[2023-10-07] MEDS: Lactated Ringers 1,000 ML 100 ML IVCONT (08:34)
--- NOTE | 2023-10-07 09:58 | MHC.SHP ---
Pre-Procedural Eval Section A Date of Service: 10/07/23 The patient is an INPATIENT: No Changes since office visit: No Cold of Flu in the past 2 weeks, No New Medical Problems, No Changes in Medication and No Patient answered all questions The History & Physical has been completed within 30 days and I have reviewed it.: Yes Section B Chief Complaint: Displaced fracture of middle phalanx of right vikki Allergies: Allergies Allergy/AdvReac Type Severity Reaction Status Date / Time No Known Allergies Allergy Mild N/A Verified 10/05/23 10:14 Plan I have reviewed the history and physical and performed a pertinent physical examination on my patient. No changes have occurred unless specified. Time Spent With Patient Time: Total time managing care of this patient today ____ minutes.
[2023-10-07] MEDS: fentaNYL citrate/PF 100 MCG/2 ML VIAL 25 MCG IVPUSH ×4 (12:30→13:05)
== END 2023-10-07 13:41 | disposition home or self-care (01) ==
PROVIDERS: PCP Internal Medicine; Visit Provider Orthopaedic Surgery
PROC: (CPT 26735; principal; 2023-10-07 09:20)
DX: S62.626A Displaced fracture of middle phalanx of right little finger, initial encounter for closed fracture (principal); R20.0 Anesthesia of skin; R20.2 Paresthesia of skin; E78.00 Pure hypercholesterolemia, unspecified; M81.0 Age-related osteoporosis without current pathological fracture; W01.0XXA Fall on same level from slipping, tripping and stumbling without subsequent striking against object, initial encounter; Y93.9 Activity, unspecified; Y92.9 Unspecified place or not applicable; Y99.8 Other external cause status; Z79.899 Other long term (current) drug therapy
CPT/HCPCS: 26735; C1713; J0690; J1100; J1885; J2250; J2405; J2704; J2795; J3010

== ENCOUNTER → 2023-10-07 07:43 | Outpatient (BNV) | payer OTHER, SELFPAY | PROVIDERS: PCP Internal Medicine; Visit Provider Orthopaedic Surgery | DX: S62.626A Displaced fracture of middle phalanx of right little finger, initial encounter for closed fracture (principal); S62.614A Displaced fracture of proximal phalanx of right ring finger, initial encounter for closed fracture | CPT/HCPCS: 26720; 26735 ==

== ENCOUNTER 2023-10-20 10:04 | Outpatient (REF) | payer OTHER, SELFPAY ==
--- NOTE | ~2023-10-20 | XR_ITS ---
EXAMINATION: XR HAND, RIGHT CLINICAL INFORMATION: Pain. COMPARISON: Prior radiographs, most recently 10/05/2023. TECHNIQUE: PA, lateral, and oblique views of the right hand. FINDINGS: There is bony demineralization. There is well-maintained alignment of an oblique intra-articular fracture of the base of the fifth middle phalanx, with intact K wire. A further mildly displaced oblique fracture of the right fourth proximal phalanx shows stable alignment. There is a healed fracture of the distal right radius, with intact fixator plate and fixator screws. There is an old ununited ulnar styloid fracture fragment, unchanged from 09/29/2013. No hardware failure or loosening is seen. No focal soft tissue swelling, gas or foreign body seen. XR/XR hand RT min 3V IMPRESSION: 1. There is stable alignment of a mildly displaced fracture of the base of the right fifth middle phalanx. No hardware failure or loosening is seen. 2. There is stable alignment of a mildly displaced oblique fracture of the right fourth proximal phalanx.
== END 2023-10-20 10:05 | disposition home or self-care (01) ==
LOC: HO.HOSX 10:04
PROVIDERS: Visit Provider Orthopaedic Surgery
DX: M79.641 Pain in right hand (principal); S62.626A Displaced fracture of middle phalanx of right little finger, initial encounter for closed fracture; W18.30XA Fall on same level, unspecified, initial encounter; Y93.9 Activity, unspecified; Y92.9 Unspecified place or not applicable; Y99.8 Other external cause status
CPT/HCPCS: 73130; 99212

== ENCOUNTER 2023-10-20 13:03 | Outpatient (AMB) | payer OTHER, SELFPAY ==
--- NOTE | 2023-10-20 13:18 | A.OFFVIS_ITS ---
Intake Intake Visit Reasons: PO RT little finger fx 10/07/23 AR Intake Note: Jermain 43 yr old male presents today for his PO visit for his Right little finger fx 10/07/23 AR.Dressing removed and xrays updated. State\s he is having on and off tingling which he didnt have before. Allergies No Known Allergies Allergy (Mild, Verified 10/20/23 13:19) N/A HPI PO RT little finger fx 10/07/23 AR HPI Details Jermain is a 43 year old right hand dominant man who presents S/P right small finger middle phalanx ORIF, DOS: 10/07/23. He says he is doing well in regards to pain. He confirms breaking his ring finger about a year ago, 2022. 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 Sutures removed and Steri-Strips applied He still has some mild swelling in the small finger. No erythema or drainage. He can bring his thumb, index, middle, and ring fingers closed to a fist and back into extension We worked on ring figner ROM and small finger MCP joint ROM. Again we see the same mild old pronation deformity of the ring finger. Fracture site minimally tender Sensation is intact Cap refill is brisk Radiographs: 3 views of the right hand, with attention to the small finger, were taken and viewed by me today in clinic. They show a small finger middle phalanx fracture with satisfactory fracture alignment and position of single K-wire. We do not have a good lateral view. Psych Appearance: grossly normal Affect: normal affect Attitude: cooperative Assessment & Plan Assessment & Plan (1) Fracture of phalanx of right little finger: Code(s): S62.606A - Fracture of unspecified phalanx of right little finger, initial encounter for closed fracture Qualifiers: Encounter type: initial encounter Fracture alignment: displaced Fracture type: closed Phalanx: middle Qualified Code(s): S62.626A - Displaced fracture of middle phalanx of right little finger, initial encounter for closed fracture Plan Assessment & Plan: 1. Right small finger middle phalanx fracture, S/P ORIF From a fall, DOI: 09/26/23 DOS: 10/07/23 The patient appears to be doing well post-operatively I educated him about the post-operative course I explained the signs and symptoms of infection, if the patient develops any new or worsening erythema, drainage, pain, or warmth they should contact the clinic or attend the ED. He was placed in a short arm finger spica cast to be worn for the next 2 weeks I discussed activity modifications, he is to lift nothing heavier than a cellphone for the next 4 weeks He was given a note to remain out of work X4 weeks. He will follow up in 2 weeks, with X-rays OOP, 3V R hand, attn SF. I may leave t he K-wire in for an additional week but he should be transitioned pin site care and working on improving range of motion in the surrounding joints and digits. Anticipate K-wire removal at ~5 weeks post-op, and early OT hand therapy. Scribed for Brina Cantrell MD by Ángel Weaver, medical device sales representative, on 10/20/23 at 1:45 PM, EST. Orders: Orders XR hand RT min 3V Today M79.641 - Pain in right hand Coding Level of Care Code Global (65483) Diagnoses Closed displaced fracture of middle phalanx of right little finger, initial encounter S62.626A Encounter type: initial encounter Fracture alignment: displaced Fracture type: closed Phalanx: middle
== END 2023-10-20 14:28 | disposition home or self-care (01) ==
PROVIDERS: PCP Internal Medicine; Visit Provider Orthopaedic Surgery
DX: S62.626A Displaced fracture of middle phalanx of right little finger, initial encounter for closed fracture (principal)
CPT/HCPCS: 99024

== ENCOUNTER 2023-11-03 10:18 | Outpatient (REF) | payer OTHER, SELFPAY ==
--- NOTE | ~2023-11-03 | XR_ITS ---
EXAMINATION: XR HAND, RIGHT CLINICAL INFORMATION: Pain in right hand COMPARISON: 10/20/2023 TECHNIQUE: PA, lateral, and oblique views of the right hand. FINDINGS: There is a diffuse osteopenia. The position of fracture at the base of fifth middle phalanx is stable being compressed by surgical pin. There is soft tissue swelling surrounding finger. Finger is in bending position. There is narrowing of proximal interphalangeal joint. There is healed fracture deformity of distal right humerus with hardware in place and there is questionable a healed fracture of proximal phalanx of fourth finger. XR/XR hand RT min 3V IMPRESSION: Well aligned mildly displaced intra-articular fracture at the base of the middle phalanx of fifth finger with hardware in place and stable healed fracture through the proximal phalanx of fourth finger.
== END 2023-11-03 10:19 | disposition home or self-care (01) ==
LOC: HO.HOSX 10:18
PROVIDERS: Visit Provider Orthopaedic Surgery
DX: S62.606A Fracture of unspecified phalanx of right little finger, initial encounter for closed fracture (principal); X58.XXXA Exposure to other specified factors, initial encounter; Y93.9 Activity, unspecified; Y92.9 Unspecified place or not applicable; Y99.9 Unspecified external cause status
CPT/HCPCS: 73130; 99212

== ENCOUNTER 2023-11-03 10:45 | Outpatient (AMB) | payer OTHER, SELFPAY ==
--- NOTE | 2023-11-03 10:58 | A.OFFVIS_ITS ---
Intake Intake Visit Reasons: PO-RT LF fx 10/07/23 AR-w/xray cast off/ Conf Intake Note: Jermain 43 yr old male presents today for his PO visit for his Right little finger fx 10/07/23 AR.Dressing removed and xrays updated. States he has very little pain. Allergies No Known Allergies Allergy (Mild, Verified 11/03/23 10:59) N/A HPI PO-RT LF fx 10/07/23 AR-w/xray cast off/ Conf HPI Details Jermain is a 43 year old right hand dominant man who presents S/P right small finger middle phalanx ORIF, DOS: 10/07/23. He says he is doing well overall and has very little pain. He confirms breaking his ring finger about a year ago, 2022. 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 K-wire removed today in clinic, which he tolerated well His small finger swelling is improving.. No erythema or drainage. He can bring his thumb, index, middle, and ring fingers closed to a fist and back into extension We worked on ring finger ROM and small finger MCP joint ROM which was nearly full before leaving clinic. He does have stiffness as we would expect in the PIP joint and also in the D IP joint of the small finger. We worked on only very gentle [id number] exercises for these joints.. Again we see the same mild old pronation deformity of the ring finger. Fracture site non-tender Sensation is intact Cap refill is brisk Radiographs: 3 views of the right hand, with attention to the small finger, were taken and viewed by me today in clinic. They show a small finger middle phalanx fracture with satisfactory fracture alignment and position of single K-wire. I am pleased with our reduction, and he has good evidence of interval bony healing. Psych Appearance: grossly normal Affect: normal affect Attitude: cooperative Assessment & Plan Assessment & Plan (1) Fracture of phalanx of right little finger: Code(s): S62.606A - Fracture of unspecified phalanx of right little finger, initial encounter for closed fracture Qualifiers: Encounter type: initial encounter Fracture alignment: displaced Fracture type: closed Phalanx: middle Qualified Code(s): S62.626A - Displaced fracture of middle phalanx of right little finger, initial encounter for closed fracture Plan Assessment & Plan: 1. Right small finger middle phalanx fracture, S/P ORIF From a fall, DOI: 09/26/23 DOS: 10/07/23 K-wire removed: 11/03/23 The patient appears to be doing well post-operatively I educated him about the post-operative course I discussed activity modifications, he is to lift nothing heavier than a cellphone for the next 2 weeks He will work on gentle finger ROM exercises at home He will follow up in 2-3 weeks for a ROM check, no X-rays unless he has pain We will discuss possible OT hand therapy at his next appointment, depending on his progress Scribed for Brina Cantrell MD by Ángel Weaver center medical director, on 11/03/23 at 11:20 AM, EST. Orders: Orders XR hand RT min 3V Today M79.641 - Pain in right hand Coding Level of Care Code Global (78685) Diagnoses Closed displaced fracture of middle phalanx of right little finger, initial encounter S62.626A Encounter type: initial encounter Fracture alignment: displaced Fracture type: closed Phalanx: middle
== END 2023-11-03 11:38 | disposition home or self-care (01) ==
PROVIDERS: PCP Internal Medicine; Visit Provider Orthopaedic Surgery
DX: S62.626A Displaced fracture of middle phalanx of right little finger, initial encounter for closed fracture (principal)
CPT/HCPCS: 99024

== ENCOUNTER 2023-11-30 12:31 | Outpatient (REF) | payer OTHER, SELFPAY ==
--- NOTE | ~2023-11-30 | XR_ITS ---
EXAMINATION: XR HAND, RIGHT CLINICAL INFORMATION: Pain in right hand COMPARISON: None available. TECHNIQUE: PA, lateral, and oblique views of the right hand. FINDINGS: There is diffuse osteopenia. Interval removal of K wire across the fracture at the base of the fifth middle phalanx. The fracture is healed. Decreased soft tissue swelling. There is narrowing of the proximal interphalangeal joint of the little finger. There is healed fracture deformity of distal right radius with hardware in place. There is question of healed fracture of the proximal phalanx of the fourth finger. XR/XR hand RT min 3V IMPRESSION: 1. Interval removal of K wire across the PIP joint of the little finger. 2. Healing of previously noted fracture at the base of the fifth middle phalanx.
== END 2023-11-30 12:32 | disposition home or self-care (01) ==
LOC: HO.HOSX 12:31
PROVIDERS: PCP Internal Medicine; Visit Provider Orthopaedic Surgery
DX: M79.641 Pain in right hand (principal); S62.626A Displaced fracture of middle phalanx of right little finger, initial encounter for closed fracture; W23.0XXA Caught, crushed, jammed, or pinched between moving objects, initial encounter
CPT/HCPCS: 73130; 99212

== ENCOUNTER 2023-11-30 12:31 | Outpatient (AMB) | payer OTHER, SELFPAY ==
--- NOTE | 2023-11-30 12:34 | MHC.OFFVIS ---
Intake Intake Visit Reasons: PO-RT LF fx 10/07/23 AR-ROM check Intake Note: Jermain 43 yr old male presents today for his PO ROM check visit for his Right little finger fx 10/07/23 AR. States he is doing well however he is not able to fully straighten his pinky and has sensitivity in his incision area. Allergies No Known Allergies Allergy (Mild, Verified 11/30/23 12:38) N/A HPI PO-RT LF fx 10/07/23 AR-ROM check HPI Details Jermain is a 43 year old right hand dominant man who presents S/P right small finger middle phalanx ORIF, DOS: 10/07/23. He says he is doing well overall and has very little pain. He says he has been working on ROM exercises at home, but he is unable to fully extend his small finger. He also reports some sensitivity about his incision. He confirms breaking his ring finger about a year ago, 2022. 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 Review of Systems Const All systems reviewed & are unremarkable except as noted in HPI and below Physical Exam Const General: no acute distress and alert Orientation/consciousness: patient oriented x3 Neuro General: patient oriented x3 Extrem Other: Evaluation of Right Upper Extremity: The patient is alert, oriented, and in no acute distress Neuro: Median, Ulnar, Radial nerves motor and sensory intact Vascular: Cap refill brisk ROM: He can bring his fingers, including the small finger, closed to a fist and back into extension His range of motion at the small finger PIP joint is from about 40 degrees to about 90 degrees. This is a significant improvement. Passively I can not bring that PIP joint extended beyond 40 degrees at this point. Again we see the same mild old pronation deformity of the ring finger. Fracture site non-tender Radiographs: 3 views of the right hand, with attention to the small finger, were taken and viewed by me today in clinic. They show satisfactory fracture alignment , and good bony healing at the fracture site. Psych Appearance: grossly normal Affect: normal affect Attitude: cooperative Assessment & Plan Assessment & Plan (1) Fracture of phalanx of right little finger: Code(s): S62.606A - Fracture of unspecified phalanx of right little finger, initial encounter for closed fracture Qualifiers: Encounter type: initial encounter Fracture alignment: displaced Fracture type: closed Phalanx: middle Qualified Code(s): S62.626A - Displaced fracture of middle phalanx of right little finger, initial encounter for closed fracture (2) Fracture of middle phalanx of right little finger: Code(s): S62.626A - Displaced fracture of middle phalanx of right little finger, initial encounter for closed fracture Plan Assessment & Plan: 1. Right small finger intra-articular middle base phalanx fracture, S/P ORIF From a fall, DOI: 09/26/23 DOS: 10/07/23 K-wire removed: 11/03/23 The patient appears to be doing well post-operatively I educated him about the post-operative course I discussed activity modifications, he is to continue to work on ROM exercises at home He should massage his incision site to reduce any hypersensitivity. I ordered OT hand therapy to work on ROM exercises He will follow up in 4 weeks to check his range of motion. No radiographs are necessary at that time. Scribed for Brina Cantrell MD by Ángel Weaver, medical appointment scheduler, on 11/30/23 at 1:30 PM, EST. Orders: Orders XR hand RT min 3V Today M79.641 - Pain in right hand OT Evaluation and Treatment Today S62.626A - Displaced fracture of middle phalanx of right little finger, initial encounter for closed fracture Coding Level of Care Code Global (09214) Diagnoses Closed displaced fracture of middle phalanx of right little finger, initial encounter S62.626A Encounter type: initial encounter Fracture alignment: displaced Fracture type: closed Phalanx: middle Fracture of middle phalanx of right little finger S62.626A
== END 2023-11-30 14:33 | disposition home or self-care (01) ==
PROVIDERS: PCP Internal Medicine; Visit Provider Orthopaedic Surgery
DX: S62.626A Displaced fracture of middle phalanx of right little finger, initial encounter for closed fracture (principal)
CPT/HCPCS: 99024

== ENCOUNTER 2023-12-27 11:30 | Outpatient (RCR) | payer OTHER, SELFPAY ==
--- NOTE | 2023-12-06 12:39 | MHC.OT.OEV ---
[address] [phone] F: [phone] Occupational Therapy Evaluation Patient Name: Jermain Pittman Diagnosis: ORIF of 5th digit Date of Onset: 09/26/23 Date of Surgery: 10/07/23 Attending Provider: Brina Cantrell Prescribed Treatment: Follow Up Appointment: History of Current Condition: Patient is a 43 year old left handed male who was at his second job at [employer] (09/26/2023) when he slipped on the metal track and reached out in attempts to catch his balance in hit his hand resulting in a PIP fx of the 5th digit and ORIF on 10/07/23. Significant Medical History: Precautions/Contraindications: Patient Goals: To have finger straight again. 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 (I)ADLs/IADls Living Situation, Family and/or Social Support: Lives with girlfriend 1 adult daughter Riding motorcycle, walking his dogs Current Level of Function and Occupation Self Care, Employment, Leisure: min (A)ADLs/IADLs Will return to work on 12/06/2023 Sleep: sleeping through the night Driving: (I) Vision: Balance: Pain Assessment Pain Score: 3 Pain Scale Used: Numeric (0 - 10) Pain Location and Description: 3/10 pain with movement or when he bangs it 0/10 at rest Aggravating Factors: Alleviating Factors: Ibuprofine Skin and Soft Tissue Assessment Skin and Soft Tissue: Scar Tissue Comments: later side of the 5th digit Nerve assessment Ulnar Nerve: Median Nerve: Radial Nerve: Comments: Sensory Assessment Temperature: Light Touch: Proprioception: Vibration: Comments: Edema Assessment Upper Extremity: Lower Extremity: Comments: Edema present in PIP Dexterity Assessment Dexterity: Right Impaired Comments: Functional Dexterity Test= 43.08 (R) Special Tests Comments: AROM(PROM) Strength Cervical Cervical Flexion: Cervical Extension: Cervical Lateral Flexion: Cervical Rotation: Comments: Shoulder Flexion: Extension: Abduction: Internal Rotation: External Rotation: Comments: WFL Flexion: Extension: Abduction: Internal Rotation: External Rotation: Comments: WFL Elbow Flexion: Extension: Pronation: Supination: Comments: WFL Flexion: Extension: Pronation: Supination: Comments: WFL Wrist Flexion: Extension: Ulnar Deviation: Radial Deviation: Comments: WFL Flexion: Extension: Ulnar Deviation: Radial Deviation: Comments: WFL Thumb Thumb CMC Flexion: Thumb MCP Flexion: Thumb IP Flexion: Radial Abduction: Palmar Abduction: [place] (Kapandji 0-10): Comments: WFL Digits Index MCP: PIP: DIP: Long MCP: PIP: DIP: Ring MCP: PIP: DIP: Small MCP: 60* active flexion/ extension WFL PIP: flexor Contracture 31*, 30* active Flexion DIP: 60* active flexion/ extension WFL Comments: Gross Grasp: (L)65lbs. 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 Barriers to Learning: Readiness for Learning: Who was educated? Comments: Plan of Care Assessment: Patient is a 43 year left handed male who had a 5th digit PIP fracture s/p ORIF on (). Patient reports he lives with girlfriend in a single family home with 2 cats and 2 dogs, he has 1 adult daughter who lives ([place]). 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 He will be returning to work on Wednesday the . His main objective is to have his finger straight again. He reports 3/10 pain with activity and 0/10 pain at rest. He denies numbness/ tingling. It was observed patient has scaring on the lateral side of his finger which he reports is very sensitive . It was observed edema is present in the 5th digit of the PIP. Patient's current ROM of the 5th digit measurements are as follows: MCP: 60* active flexion/extension WFL, PIP flexion contracture of 31*, 30* of active flexion, DIP 60* active flexion/ extension WFL. 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 in the (L) hand. Functional Dexterity Test= 43.08 seconds indicating impaired coordination. Quick DASH= 11.4 indicating patient's perceived impairment of the UE during functional activities. Based on initial evaluation patient's CLOF is min(A) self care tasks as patient presents with impaired ROM, pain, edema, hypersensitivity, impaired strength and impaired ADL performance. Due to the documented impairments it is recommended that patient receive skilled OT services in order to achieve his PLOF of (I) during ADL performance. Thank you for your referral. STG Duration: 2 weeks Short Term Goals: Patient will report 1/10 pain in 5th finger Patient will decrease flexor contraction to 20* Patient will increase active flexion of the 5th digit for functional use LTG Duration: 4 weeks Papier Mache' Molder Goals: Patient will report 0/10 pain in the 5th finger Patient will have WFL extension of the PIP patient will have WFL flexion of the 5th digit Patient will be (I) with HEP Frequency and Duration: The patient will be seen 2x a week for 4 weeks Treatment Plan: Therapeutic Exercise Therapeutic Activity Home Exercise Program Patient Education Edema Control ADL Training Ultrasound Iontophoresis Paraffin Fluidotherapy MHP Cold Packs Kinesiotaping OT eval and treat Electronically Signed By: REUBEN Borden/Sidney, CLMarivel Reviewed/agree with student documentation: Therapist: Please sign and return to therapist, Thank you for your referral.
== END 2024-02-16 13:31 | disposition home or self-care (01) ==
LOC: HO.OT 11:30
PROVIDERS: PCP Internal Medicine; Visit Provider Orthopaedic Surgery
DX: S62.626D Displaced fracture of middle phalanx of right little finger, subsequent encounter for fracture with routine healing (principal)
CPT/HCPCS: 97110; 97140; 97165

== ENCOUNTER 2024-01-11 09:17 | Outpatient (AMB) | payer OTHER, SELFPAY ==
--- NOTE | 2024-01-11 09:22 | MHC.OFFVIS ---
Vital Signs 01/11/24 09:27 Handedness Left Intake Visit Reasons: OV-RT LF fx 10/07/23 AR-ROM check Intake Note: Jermain is a 43 year old male left hand dominant male presents today for a ROM check s/p Right little finger fx 10/07/23 AR. Patient reports he still has mild discomfort and swelling but is able to make a fist and bend his 5th digit. Allergies No Known Allergies Allergy (Mild, Verified 01/11/24 09:25) N/A HPI HPI OV-RT LF fx 10/07/23 AR-ROM check: Details: Jermain is a 43 year old right hand dominant man who presents S/P right small finger middle phalanx intra-articular base fracture ORIF, DOS: 10/07/23. He is here for a ROM check, and is pleased with the results of his surgery. He says he is doing well overall. He has some mild pain occasionally, which he says is tolerable. He is concerned about occasional swelling in his small finger He has been attending OT and working on ROM exercises at home, he says he can fully move his small finger. He confirms breaking his ring finger about a year ago, 2022. 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 He says he was recently diagnosed with Osteoporosis and is scheduled to be see by a specialist in [place] He enjoys riding his motorcycle, and wants to know if he will have any issues now that he is healed. 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 Review of Systems Const All systems reviewed & are unremarkable except as noted in HPI and below Physical Exam Const General: no acute distress and alert Orientation/consciousness: patient oriented x3 Neuro General: patient oriented x3 Extrem Other: Evaluation of Right Upper Extremity: The patient is alert, oriented, and in no acute distress Neuro: Median, Ulnar, Radial nerves motor and sensory intact Vascular: Cap refill brisk ROM: He can bring his fingers, including the small finger, closed to a fist and back into extension His active range of motion at the small finger PIP joint is from ~20 degrees to ~90 degrees, improved from prior Again we see the same mild old pronation deformity of the ring finger. Psych Appearance: grossly normal Affect: normal affect Attitude: cooperative Assessment & Plan Assessment & Plan (1) Fracture of middle phalanx of right little finger: Code(s): S62.626A - Displaced fracture of middle phalanx of right little finger, initial encounter for closed fracture Plan Assessment & Plan: 1. Right small finger intra-articular middle base phalanx fracture, S/P ORIF From a fall, DOI: 09/26/23 DOS: 10/07/23 K-wire removed: 11/03/23 The patient appears to be doing well post-operatively, and is happy with the results of his surgery. He has improved his active PIP joint ROM and is now ~20-90 degrees I discussed activity modifications, he is to continue to work on ROM exercises at home & with OT He should be mindful of heavy twisting or gripping activities when possible, this includes when riding his motorcycle He will follow up prn Scribed for Brina Cantrell MD by Ángel Weaver, ophthalmic medical technician, on 01/11/24 at 9:45 AM, EST.
== END 2024-01-11 09:50 | disposition home or self-care (01) ==
PROVIDERS: PCP Internal Medicine; Visit Provider Orthopaedic Surgery
DX: S62.626A Displaced fracture of middle phalanx of right little finger, initial encounter for closed fracture (principal)
CPT/HCPCS: 99212

== ENCOUNTER → 2024-01-11 09:17 | Outpatient (BNVA) | payer OTHER, SELFPAY | PROVIDERS: PCP Internal Medicine; Visit Provider Orthopaedic Surgery | DX: S62.626D Displaced fracture of middle phalanx of right little finger, subsequent encounter for fracture with routine healing (principal) | CPT/HCPCS: 99212 ==

== ENCOUNTER 2024-11-17 07:12 | Outpatient (REF) | payer BC, SELFPAY ==
--- NOTE | ~2024-11-17 | XR_ITS ---
EXAMINATION: XR KNEE 3 VIEWS LEFT HISTORY: M25.569 - Pain in unspecified knee COMPARISON: Correlation is made with intraoperative images of the left knee dated 01/03/2008. FINDINGS: Standing AP views of both knees and additional lateral and sunrise patellar views of the left knee are submitted. Bones are osteopenic. The patient is status post internal fixation of the patella with multiple wires. 2 screws are seen in the proximal tibial metaphysis. No acute fracture is seen. There is mild to moderate osteoarthritis of the medial and patellofemoral compartments of the left knee. The soft tissues are unremarkable. There is no joint effusion. XR/XR knee LT 3V IMPRESSION: Osteopenia. Internal fixation of the left knee as described. Mild to moderate osteoarthritis of the medial patellofemoral compartments. Electronically signed by: Jin Palacios MD 11/20/2024 08:32 AM EST
--- OUTSIDE RECORDS SUMMARY | 2024-11-18 07:15 | XMS_ITS | Clinical Summary ---
Author Organization [facility] Address [address] [place] [address] Phone Care Team Providers Care Sand Miller Name Role Phone Cathi GONZALEZ, Roxy Primary Care Prov ider [phone] [facility] Un[facility] [phone] Reason for Visit and Chief Complaint Post Op Visit/Follow Up Plan of Treatment Pending Tests Order Diagnosis Results Due Ordering P mario Follow Up - Appointment 1 Month Displ tr ansverse fx l patella, subs for clos fx w routn heal 02/26/22 Jeff Rahman MD Last Documented On 2 9:57AM ; [facility] Assessments Includes: Assessments from this encounter No Assessments Recorded Medical Equipment - Implanted Devices Includes: Current Devices No Medical Equipment Recorded Medications Includes: Medications discussed during this encounter and other current Medications Current Medications (continue as prescribed) Ibuprofen 600 MG Oral Tablet 02/26/2022 Provider: Diagnosis: Last Documented On 2 9:51AM By Lucian Rosen ; [facility] Atorvastatin Calcium 10 MG Oral Tablet 01/15/2022 Pr ovider: Diagnosis: Last Documented On 2 12:34PM By Mindi Nuno ; [facility] Medications Administered Includes: Administered Medications from this encounter No Administered Medications Recorded Vital Signs Includes: Vital Signs from this encounter Vital Name 02/26/2022 09:36A Blood Pressure Sitting (mmHg) 132/84 Pulse Rate-Sitting (bpm) 83 Temp-Oral (F) 97.2 Height (in) 70 Weight (lb) 160 Body Mass Index (kg/m2) 23.0 Body Surface Area (m2) 1.9 Oxygen Saturation (%) 99 Last Documented: On 02/26/2022 9:37AM ; [facility] Results Includes: Results discussed during this [...] Up Jeff Rahman MD [facility] 02/27/20 22 9:20AM 9:56AM Insurance Includes: Active Insurance Policies Plan Name Member ID Group # Subscriber Relationship Effect oleg Dates 1 - [facility] [employer] Plan [id number] Jermain Pittman II Self Clinical Notes Includes: Clinical Notes from this encounter No Clinical Notes Recorded
--- OUTSIDE RECORDS SUMMARY | 2024-11-18 07:15 | XMS_ITS | Encounter Summary ---
Author Organization [facility] Address [address] [place] [address] Care Team Providers Care Race Engine Builder Name Role Phone Roxy Winkler MD Primary Care Prov ider Reason for Visit * Reason Onset Date Comments Medication Problem 08/18/2024 Patient is ca lling to follow up on Reclast infusion Encounter Details Date Type Department Care Team ([facility] Contact Info) Description 08/18/2024 Telephone [facility] - [address] [phone] RodriguesPee dumontma [place] Medication Problem (Patient is calling to follow [...] for your loved ones. For example, child protective investigator or elderly care for an older adult? [...] 10:06 AM EST Unable to send to [facility] as they are no longer giving Reclast, will submit PA to [facility] to send to [facility] for Infusion upon approval. * SUE Saldana [...] 08/08/2025 9:30 AM EST Office Visit Endocrinology [address] [address] Figueroa Reynolds PA [address] [place] [address] Scheduled Orders Name Type Priority Associated Diagnoses [...] documented as of this encounter Care Teams Race Engine Builder Relationship Specialty Start Date End Date Roxy Winkler MD [address] [place] [address] PCP - General Internal Medicine 11/23/17 documented as of this encounter
--- OUTSIDE RECORDS SUMMARY | 2024-11-18 07:15 | XMS_ITS | Clinical Summary ---
Author Organization [facility] Address [address] [place] [address] Phone Care Team Providers Care Orderly Name Role Phone Cathi GONZAELZ, [facility] Primary Care Prov ider [phone] [facility] Unavailable [phone] Reason for Visit and Chief Complaint Established Patient Plan of Treatment 1. May ambulate full weightbearing left lower extremity as tolerated. 2. Start prone flexion left knee. 3. Return to office in 2 weeks for formal physical therapy 4. Anticipate return to work April 17, 2022. - Last Documented On 02/12/2022 10:09AM ; [facility] Pending Tests Order Diagnosis Results Due Ordering Andrea martin Follow Up - Appointment 2 Weeks Displ tr ansverse fx l patella, subs for clos fx w routn heal 02/12/22 Pravin Ma MD Last Documented On 2 10:09AM ; [facility] Assessments Includes: Assessments from this encounter No Assessments Recorded Medical Equipment - Implanted Devices Includes: Current Devices No Medical Equipment Recorded Medications Includes: Medications discussed during this encounter and other current Medications Current Medications (continue as prescribed) Ibuprofen 600 MG Oral Tablet 02/26/2022 Provider: Diagnosis: Last Documented On 2 9:51AM By Lucian Rosen ; [facility] Atorvastatin Calcium 10 MG Oral Tablet 01/15/2022 Pr ovider: Diagnosis: Last Documented On 2 12:34PM By Mindi Nuno ; [facility] Medications Administered Includes: Administered Medications [...] Documented: On 02/12/2022 9:45AM ; [facility], Results Includes: Results discussed during this encounter [...] Time Diagnosis Established Patient Pravin [facility] 02/13/20 22 9:40AM 10:08AM Insurance Includes: Active Insurance Policies Plan Name Member ID Group # Subscriber Relationship Effect oleg Dates 1 - [facility] Plan [id number] Jermain Pittman II Self Clinical Notes Includes: Clinical Notes from this encounter No Clinical Notes Recorded
--- OUTSIDE RECORDS SUMMARY | 2024-11-18 07:15 | XMS_ITS | Encounter Summary ---
Author Organization [facility] Address [address] [place] [address] Care Team Providers Care Mail Censor Name Role Phone Roxy Winkler MD Primary Care Prov ider Encounter Details Date Type Department Care Team (Late st Contact Info) Description 11/01/2024 8:21 AM EST Anesthesia Event [facility] Endoscopy [address] [place] [phone] David Gibson MD [address] [place] [address] Anesthesia Record Procedure Summary Procedure Name Responsible [...] for your loved ones. For example, child advocate or elderly care for an older adult? [...] Procedure Summary Date: 11/01/24 Room / Location: [facility] Endoscopy Anesthesia Start: 820 Anesthesia Stop: 853 [...] tibia, 2022 patella ??? VASECTOMY 2019 PROCEDURE: CT VASECTOMY UNI/BI SPX W/POSTOP SEMEN EXAMS ??? [...] with patient who. Anesthesia Plan discussed with SALES PLANNING MANAGER. Anesthesia Evaluation Patient summary reviewed and Nursing [...] 9:30 AM EST Office Visit Endocrinology - [place] [address] [place] [address] Amada Reynolds PA [address] [place] [address] documented as of this encounter Visit Diagnoses [...] documented as of this encounter Care Teams Mail Censor Relationship Specialty Start Date End Date Roxy Winkler MD [address] [place] [address] PCP - General Internal Medicine 11/23/17 documented as of this encounter
--- OUTSIDE RECORDS SUMMARY | 2024-11-18 07:15 | XMS_ITS | Encounter Summary ---
Author Organization [facility] Address [address] [place] [address] Care Team Providers Care Astronomy Teacher Name Role Phone Roxy Winkler MD Primary Care Prov ider Reason for Referral * Imaging (Routine) - Closed Specialty Diagnoses / Procedures Referred By Contac t Referred To Contact Radiology Diagnoses Kidney stone Procedures US Retroperitoneal Complete Roxy Winkler MD [address] [place] [address] Phone: tel: fax: [address] [address] Phone: tel: Referral ID Status Reason Start Date Expiration Date Visits Re quested Visits Authorized [id number] Closed 11/06/2024 11/06/2025 1 1 Reason for Visit * Reason Comments Follow-up Encounter Details Date Type Department Care Team (Latest Contact Info) Description 11/06/2024 8:45 AM EST Office Visit Adult Medicine - [address] [phone] Roxy Baxter MD [address] [place] [address] Familial hypercholesterolemia (Primary Dx); Osteoporosis, unspecified osteoporosis [...] your loved ones. For example, early childhood aide classroom or elderly care for an older adult? [...] Description 08/08/2025 9:30 AM EST Office Visit [address] [address] Amada Reynolds PA [address] [place] [address] Scheduled Orders Name Type Priority Associated Diagnoses [...] Signed Date: 11/06/2024 14:52 ET Workstation ID: [id number] Transcribed By: Self Edit Transcribed Date: 11/06/2024 [...] Signed Date: 11/06/2024 14:52 ET Workstation ID: [id number] Transcribed By: Self Edit Transcribed Date: 11/06/2024 14:50 ET us Roxy Winkler MD [facility] US PROCEDURES Final Result documented in this [...] documented as of this encounter Care Teams Astronomy Teacher Relationship Specialty Start Date End Date Roxy Winkler MD [address] [place] [address] PCP - General Internal Medicine 11/23/17 documented as of this encounter
--- OUTSIDE RECORDS SUMMARY | 2024-11-18 07:15 | XMS_ITS | Encounter Summary ---
Author Organization [facility] Address [address] [place] [address] Care Team Providers Care Manager Fine Name Role Phone Roxy Winkler MD Primary Care Prov ider Reason for Referral * Imaging (Routine) - Closed Specialty Diagnoses / Procedures Referred By Linda t Referred To Contact Radiology Diagnoses Kidney stone Procedures US Retroperitoneal Complete Roxy Winkler MD [address] [place], [place] Phone: tel: fax: [facility] [address] [address] Phone: tel: Referral ID Status Reason Start Date Expiration Date Visits Re quested Visits Authorized [id number] Closed 11/06/2024 11/06/2025 1 1 Reason for Visit * Imaging (Routine) - Closed Specialty Diagnoses / Procedures Referred By Contac t Referred To Contact Radiology Diagnoses Kidney stone Procedures US Retroperitoneal Complete Roxy Winkler MD [address] [place], [place] Phone: tel: fax: [facility] [address] [address] Phone: tel: Referral ID Status Reason Start Date Expiration Date Visits Re quested Visits Authorized [id number] Closed 11/06/2024 11/06/2025 1 1 Encounter Details Date Type Department Care Team (Latest Contact Info) Description 11/06/2024 1:51 PM EST - 11/06/2024 11:59 PM EST Hospital Encounter [facility]trasound [place] [address] [place] [address] Kidney stone Discharge Disposition: Home or Self [...] 9:30 AM EST Office Visit Endocrinology - [place] [address] [place] [address] Amada Reynolds PA [address] [place] [address] documented as of this encounter Procedures Procedure [...] Signed Date: 11/06/2024 14:52 ET Workstation ID: [id number] Transcribed By: Self Edit Transcribed Date: 11/06/2024 [...] Signed Date: 11/06/2024 14:52 ET Workstation ID: [id number] Transcribed By: Self Edit Transcribed Date: 11/06/2024 14:50 ET us Roxy Winkler MD IMG US PROCEDURES Final Result documented in this encounter Visit Diagnoses Diagnosis Kidney stone Calculus of kidney documented in this encounter Additional Health Concerns Assessment Noted Time PHQ-9 Depression Total Score: 0 10/20/19 25 2:29 PM EST documented as of this encounter Care Teams Manager Fine Relationship Specialty Start Date End Date Roxy Winkler MD [address] [place] [address] PCP - General Internal Medicine 11/23/17 documented as of this encounter
--- OUTSIDE RECORDS SUMMARY | 2024-11-18 07:15 | XMS_ITS | Encounter Summary ---
Author Organization [facility] Address [address] [place] [address] Care Team Providers Care Bottle Sorter Name Role Phone Roxy Winkler MD Primary Care Prov ider Reason for Referral * Consultation (Routine) - Pending Review Specialty Diagnoses / Procedures Referred By Linda kohler Referred To Contact Orthopaedics Diagnoses Chronic pain of left knee Roxy Winkler MD [address] [place] [address] Phone: tel: fax: Referral ID Status Reason Start Date Expiration Date Visits Requested Visits Authorized [id number] Pending Review Specialty Services Required 11/13/2024 11/13/2025 6 6 Scheduling Instructions pecialty FIRST and LAST NAME of SPECIALIST PATIENT is seeing: Vandana Montenegro-[id number] What specialty is this? Orthopedics DIAGNOSIS Patient [...] this visit: Initial Visit Address of Specialist: [address] [place] [address] Phone # of Specialist: [phone] Fax #: (if applicable): [phone] Does patient have an appointment scheduled?: yes Date of appointment- (including a retro-request): 11/17/2024 6-visits * Consultation (Routine) - Pending Review Specialty Diagnoses / Procedures Referred By Linda kohler Referred To Contact Orthopaedics Diagnoses Chronic pain of left knee Roxy Winkler MD [address] [place] [address] Phone: tel: fax: Vandana Montenegro PA [address] [place] [address] Referral ID Status Reason Start Date Expiration Date Visits Requested Visits Authorized [id number] Pending Review Specialty Services Required 11/13/2024 11/13/2025 1 1 Reason for Visit * Reason Onset Date Comments Referral 11/07/2024 Left Knee Pain Encounter Details Date Type Department Care Team (Late st Contact Info) Description 11/07/2024 Telephone Adult Medicine - [address] [phone] Roxy Winkler MD [address] [place] [address] Referral (Left Knee Pain) Social History Tobacco [...] for your loved ones. For example, children's nursery assistant or elderly care for an older [...] What insurance does the patient have today? [facility] Referrals cannot be processed if the insurance is not accurate. If the insurance listed above in red is NO BILLING INFORMATION FOUND FOR THIS ENCOUTNER The patients correct insurance must be obtained and registered in [facility] or their referral can not be processed. Is this a retro request? no. If yes for what date of service do you need the retro referral? not applicable Who is calling to request this referral? Incoming fax from [facility] If the caller is not the patient, what is their name? not applicable Ask the patient WHO referred them to this specialty: Patient saw Dr. Arnold at [facility] for the problem and was told if symptoms did not resolve or worsen they would refer them to this specialty FIRST and LAST NAME of SPECIALIST PATIENT is seeing: Vandana Montenegro-[id number] What specialty is this? Orthopedics DIAGNOSIS Patient [...] this visit: Initial Visit Address of Specialist: [address] [place] [address] Phone # of Specialist: [phone] Fax #: (if applicable): [phone] Does patient have an appointment scheduled?: yes Date of appointment- (including a retro-request): 11/17/2024 6-visits Is this appointment related to: NA documented in this encounter Plan of Treatment Upcoming Encounters Date Type Department Care Team (Late st Contact Info) Description 08/08/2025 9:30 AM EST Office Visit Endocrinology - [place] [address] [place] [address] Amada Reynolds PA [address] [place] [address] Scheduled Referrals Name Type Priority Associated Diagnoses [...] documented as of this encounter Care Teams Bottle Sorter Relationship Specialty Start Date End Date Roxy Winkler MD [address] [place] [address] PCP - General Internal Medicine 11/23/17 documented as of this encounter
--- OUTSIDE RECORDS SUMMARY | 2024-11-18 07:16 | XMS_ITS | Encounter Summary ---
Author Organization [employer] Address [address] [place] [address] Care Team Providers Care In Home Caregiver Name Role Phone Roxy Remy MD Primary Care Prov ider Reason for Referral * Hospital - Outpatient (Routine) - Authorized Specialty Diagnoses / Procedures Referred By Linda t Referred To Contact Diagnoses Family history of colon cancer Procedures COLONOSCOPY Anesthesia - MAC; [facility] ENDOSCOPY Donell Garsia MD [address] [place] [address] Phone: tel: fax: [facility] Endoscopy [address] [place] [phone] Phone: tel: Referral ID Status Reason Start Date Expiration Date V isits Requested Visits Authorized [id number] Authorized 08/26/2024 08/26/2025 6 6 Reason for Visit * Hospital - Outpatient (Routine) - Authorized Specialty Diagnoses / Procedures Referred By Linda kohler Referred To Contact Diagnoses Family history of colon cancer Procedures COLONOSCOPY Anesthesia - MAC; [facility] ENDOSCOPY Donell Garsia MD [address] [address] Phone: tel: fax: [facility] Endoscopy [address] [place] [address] Phone: tel: Referral ID Status Reason Start Date Expiration Date V isits Requested Visits Authorized [id number] Authorized 08/26/2024 08/26/2025 6 6 Encounter Details Date Type Department Care Team (Late st Contact Info) Description 11/01/2024 7:23 AM EST - 11/01/2024 11:59 PM [facility] Hospital Encounter [facility] Endoscopy [address] [place] [phone] Juani Tadeo, 175 [facility] [address] [place] [address] Selina Garcias CRNA [address] [place] [address] David Gibson MD [address] [place] [address] Family history of colon cancer Discharge Disposition: [...] for your loved ones. For example, child psychologist or elderly care for an older adult? [...] sent through Care Everywhere. * Colon Polyps (Congolese) documented in this encounter Medications at Time [...] - 11/01/2024 8:30 AM EST Pre-Op Diagnosis: [facility] Proposed Procedure: screening Performing Surgeon/MD/Endoscopist: Juani Tadeo DO Medical/History: Past Medical History: Diagnosis Date Hyperlipidemia 11/13/2012 DX:Hyperlipidemia Kidney stone Right inguinal hernia 11/02/2017 DX:Right inguinal hernia Past Surgical History: Procedure Laterality Date HERNIA REPAIR PROCEDURE: LAPAROSCOPY, INGUINAL HERNIA REPAIR KNEE SURGERY 2007 PROCEDURE: HISTORICAL KNEE SURGERY; COMMENT: 2007 lower tibia, 2022 patella VASECTOMY 2019 PROCEDURE: TN VASECTOMY UNI/BI SPX W/POSTOP SEMEN EXAMS WRIST [...] 9:30 AM EST Office Visit Endocrinology - [place] [address] [place] [address] Amada Reynolds PA [address] [place] [address] documented as of this encounter Procedures Procedure Name Priority Date/Time Associated Diagnosis Comments COLONOSCOPY Routine 11/01/2024 8:39 AM EST Family history of colon cancer TISSUE EXAM Routine 11/01/2024 8:34 AM EST Family history of colon cancer documented in this encounter Results * COLONOSCOPY Anesthesia - MAC; [facility] ENDOSCOPY (11/01/2024 8:39 AM EST) [...] pathology results. Narrative 11/01/2024 8:37 AM EST [facility] GI Patient Name: Jermain Pittman Procedure Date: 11/01/2024 8:21 AM Date of : 1980 Age: 44 Gender: Male Note Status: Finalized Attending MD: Juani Tadeo DO, [id number] Procedure Date No Time: 11/01/2024 Procedure: ? [...] physician, the nurse, the ? anesthesiologist, the soccer player and the photo equipment technician ? in the pre-procedure area in [...] Procedure Code(s): ? --- Professional --- ? 03679, Colonoscopy, flexible; with removal of ? tumor(s), polyp(s), or other lesion(s) by snare ? technique Diagnosis Code(s): ? --- Professional --- ? Z80.0, Family history of malignant neoplasm of ? digestive organs ? D12.8, Benign neoplasm of rectum CPT copyright 2020 [employer]. All rights reserved. The codes documented in this report are preliminary and upon marine structural welder review may be revised to meet current compliance requirements. JUANI Tadeo DO 11/01/2024 8:36:56 AM This report has been signed electronically.Juani Tadeo DO Number of Addenda: 0 Note Initiated On: 11/01/2024 8:21 AM Scope Withdrawal Time: 0 hours 6 minutes 33 seconds Scope In: 8:26:15 AM Scope Out: 8:35:44 AM ? Endoscopy Department at [facility] - [address] [place] [address], ? [place] [address] Procedure Note Juani Tadeo DO - 11/01/2024 [facility] GI Patient Name: Jermain Pittman Procedure Date: 11/01/2024 8:21 AM Date of : 1980 Age: 44 Gender: Male Note Status: Finalized Attending MD: Juani Tadeo DO, [id number] Procedure Date No Time: 11/01/2024 Procedure: Colonoscopy [...] the physician, the nurse, the anesthesiologist, the soccer player and thetechnician in the pre-procedure area in [...] retroflexion views. Procedure Code(s): --- Professional --- 42154, Colonoscopy, flexible; with removal of tumor(s), polyp(s), or other lesion(s) by snare technique Diagnosis Code(s): --- Professional --- Z80.0, Family history of malignant neoplasm of digestive organs D12.8, Benign neoplasm of rectum CPT copyright 2020 [employer]. All rights reserved. The codes documented in this report are preliminary and upon marine structural welder reviewmay be revised to meet current compliance requirements. JUANI Tadeo DO 11/01/2024 8:36:56 AM This report has been signed electronically.Juani Tadeo DO Number of Addenda: 0 Note Initiated On: 11/01/2024 8:21 AM Scope Withdrawal Time: 0 hours 6 minutes 33 seconds Scope In: 8:26:15 AM Scope Out: 8:35:44 AM Endoscopy Department at [facility] - [address] [place] [phone] IMPRESSION: - One 6 mm polyp in [...] deeper levels were examined. 11/03/2024 12:12 PM [facility] Gross Description A. Large Intestine, Rectum, polyp x1 via cold snare: Labeled LI rectum, U . Received in formalin, is an approximately 0.5 cm in greatest diameter soft to rubbery, medrano-pink to red tissue fragment, which is inked black at the base, wrapped in paper and submitted in toto in one cassette, one piece, multiple levels. dvb/SL 11/03/2024 12:12 PM [facility] Disclaimer Unless otherwise specified, all tissue is 10% NB formalin fixed and paraffin embedded. 11/03/2024 12:12 PM [facility] Tissue Rectum structure / Unknown 11/01/2024 8:34 AM EST 11/01/2024 10:45 AM EST us Donell Garsia MD LAB PATHOLOGY ORDERABLES Allyson elizabeth Result [facility] ([facility]) [facility] [address] [place] [address], documented in this encounter Visit Diagnoses Diagnosis [...] documented as of this encounter Care Teams In Home Caregiver Relationship Specialty Start Date End Date Roxy Remy MD [address] [place] [address] PCP - General Internal Medicine 11/23/17 documented as of this encounter
--- OUTSIDE RECORDS SUMMARY | 2024-11-18 07:16 | XMS_ITS | Clinical Summary ---
Author Organization [place] [facility] Address [address] [place] [address] Phone Care Team Providers Care Water Safety Teacher Name Role Phone Cathi GONZALEZ, Roxy Primary Care Prov ider [phone] [facility] [phone] Reason for Visit and Chief Complaint Post Op Visit/Follow Up Plan of Treatment Pending Tests Order Diagnosis Results Due Ordering P kourtneyder Follow Up - Appointment PRN Displ tr ansverse fx l patella, subs for clos fx w routn heal 03/26/22 Jeff Rahman MD Last Documented On 2 9:28AM ; [facility] Assessments Includes: Assessments from this encounter No Assessments Recorded Medical Equipment - Implanted Devices Includes: Current Devices No Medical Equipment Recorded Medications Includes: Medications discussed during this encounter and other current Medications Current Medications (continue as prescribed) Ibuprofen 600 MG Oral Tablet 02/26/2022 Provider: Diagnosis: Last Documented On 2 9:51AM By Lucian Rosen ; [facility] Atorvastatin Calcium 10 MG Oral Tablet 01/15/2022 Pr ovider: Diagnosis: Last Documented On 2 12:34PM By Mindi Nuno ; [facility] Medications Administered Includes: Administered Medications from this encounter No Administered Medications Recorded Vital Signs Includes: Vital Signs from this encounter Vital Name 03/26/2022 09:14A Blood Pressure Sitting (mmHg) 134/88 Pulse Rate-Sitting (bpm) 97 Temp-Temporal 97.3 Height (in) 70 Weight (lb) 160 Body Mass Index (kg/m2) 23.0 Body Surface Area (m2) 1.9 Oxygen Saturation (%) 99 Last Documented: On 03/26/2022 9:15AM ; [facility] Results Includes: Results discussed during [...] Up Jeff Rahman MD [facility] 03/26/20 22 9:06AM 9:34AM Insurance Includes: Active Insurance Policies Plan Name Member ID Group # Subscriber Relationship Effect oleg Dates 1 - [facility] Healthnet Plan [id number] Jermain Pittman II Self Clinical Notes Includes: Clinical Notes from this encounter No Clinical Notes Recorded
--- OUTSIDE RECORDS SUMMARY | 2024-11-18 07:16 | XMS_ITS | Encounter Summary ---
Author Organization [employer] Address [address] [place] [address] Care Team Providers Care Drive In Theater Attendant Name Role Phone Roxy Winkler MD Primary Care Prov ider Reason for Visit * Reason Onset Date Comments Med Refill Rash 10/17/2024 Encounter Details Date Type Department Care Team (Late st Contact Info) Description 10/17/2024 Nurse Triage Adult Medicine [facility] [address] [place] [address] Jermain Mtz PA [address] [place] [address] Med Refill; Rash Social History Tobacco Use [...] care for your loved ones. For example, director of early childhood education or elderly care for an older adult? [...] N/A Protocols used: Rash or Redness - [id number] * Roxy Santos [place] - 10/18/2024 2:07 PM EST Images from the original note were not included. - called patient , states he has a rash on his right hand that is not going away, has tried OTC medications. Asked patient to send a picture of his hand through [employer]. Image attached below. Does patient need to [...] 9:30 AM EST Office Visit Endocrinology - [address] [place] [address] Amada Reynolds PA [address] [place] [address] documented as of this encounter Visit Diagnoses Not on filedocumented in this encounter Additional Health Concerns Assessment Noted Time PHQ-9 Depression Total Score: 0 07/31/20 24 8:20 AM EST documented as of this encounter Care Teams Drive In Theater Attendant Relationship Specialty Start Date End Date Roxy Winkler MD [address] [place] [address] PCP - General Internal Medicine 11/23/17 documented as of this encounter
--- OUTSIDE RECORDS SUMMARY | 2024-11-18 07:16 | XMS_ITS | Clinical Summary ---
Author Organization [facility] 230 [facility] Address [address] [place] [address] Phone Care Team Providers Care Cook Syrup Maker Name Role Phone Roxy Remy MD Primary [...] fracture 11/2007. Followed by Dr. Rivas at [facility] Other chest pain 09/23/2005 Encounters Date Type Department Care Team Description 11/07/2024 Telephone Adult Medicine - [place] [address] [place] [address] Roxy Townsend MD Referral (Left Knee Pain) 11/06/2024 1:51 PM EST - 11/06/2024 11:59 PM EST Hospital Encounter [facility]trasound [place] [facility] [address] [place] [phone] Kidney stone Discharge Disposition: Home or Self Care 11/06/2024 8:45 AM EST Office Visit [facility] [address] [place] [phone] Roxy Townsend MD Familial hypercholesterolemia (Primary Dx); Osteoporosis, unspecified osteoporosis type, unspecified pathological fracture presence; Kidney stone; Family history of colon cancer in father; Psoriasis 11/01/2024 8:21 AM EST Anesthesia Event [facility] Endoscopy [address] [place] [phone] David Gibson MD 11/01/2024 7:23 AM EST - 11/01/2024 11:59 PM EST Hospital Encounter [facility] Endoscopy [address] [place] [phone] Juani Tadeo DO McAdams, Megan, CRNA Spencer, Mark A, MD Family history of colon cancer Discharge Disposition: Home or Self Care 10/17/2024 Nurse [facility]riage [facility] [address] [place] [phone] Jermain Mtz PA Med Refill; Rash 08/24/2024 Telephone Gastroenterology - [address] [facility] 299 [facility] [address] [place] [phone] Donell Garsia MD from Last 3 Months Immunizations Name Administration [...] LAPAROSCOPY, INGUINAL HERNIA REPAIR VASECTOMY 2019 PROCEDURE: WI VASECTOMY UNI/BI SPX W/POSTOP SEMEN EXAMS Medical [...] care for your loved ones. For example, childbirth educator or elderly care for an older adult? [...] 11/06/2024 8:55 AM ES T Respiratory Rate 20 11/01/2024 [...] 9:30 AM EST Office Visit Endocrinology - [place] [address] [place] [address] Amada Reynolds PA [address] [place] [address] Health Maintenance Due Date Last Done Comments [...] Signed Date: 11/06/2024 14:52 ET Workstation ID: [id number] Transcribed By: Self Edit Transcribed Date: 11/06/2024 [...] Signed Date: 11/06/2024 14:52 ET Workstation ID: [id number] Transcribed By: Self Edit Transcribed Date: 11/06/2024 14:50 ET Roxy Remy MD [facility] PROCEDURES Final Result * COLONOSCOPY Anesthesia - MAC; [facility] ENDOSCOPY (11/01/2024 8:39 AM EST) Anatomical [...] pathology results. Narrative 11/01/2024 8:37 AM EST [facility] GI Patient Name: Jermain Pittman Procedure Date: 11/01/2024 8:21 AM Date of : 1980 Age: 44 Gender: Male Note Status: Finalized Attending MD: Juani Tadeo DO, [id number] Procedure Date No Time: 11/01/2024 Procedure: ? [...] physician, the nurse, the ? anesthesiologist, the coating inspector and the certified emergency vehicle technician ? in the pre-procedure area in [...] Procedure Code(s): ? --- Professional --- ? 83719, Colonoscopy, flexible; with removal of ? tumor(s), polyp(s), or other lesion(s) by snare ? technique Diagnosis Code(s): ? --- Professional --- ? Z80.0, Family history of malignant neoplasm of ? digestive organs ? D12.8, Benign neoplasm of rectum CPT copyright 2020 [employer]. All rights reserved. The codes documented in this report are preliminary and upon operating systems programmer review may be revised to meet current compliance requirements. JUANI Tadeo DO 11/01/2024 8:36:56 AM This report has been signed electronically.Juani Tadeo DO Number of Addenda: 0 Note Initiated On: 11/01/2024 8:21 AM Scope Withdrawal Time: 0 hours 6 minutes 33 seconds Scope In: 8:26:15 AM Scope Out: 8:35:44 AM ? Endoscopy Department at [facility] - [address] [place] [address], ? [place] [address] Procedure Note Juani Tadeo DO - 11/01/2024 [facility] GI Patient Name: Jermain Pittman Procedure Date: 11/01/2024 8:21 AM Date of : 1980 Age: 44 Gender: Male Note Status: Finalized Attending MD: Juani Tadeo DO, [id number] Procedure Date No Time: 11/01/2024 Procedure: Colonoscopy [...] the physician, the nurse, the anesthesiologist, the coating inspector and thetechnician in the pre-procedure area in [...] retroflexion views. Procedure Code(s): --- Professional --- 56646, Colonoscopy, flexible; with removal of tumor(s), polyp(s), or other lesion(s) by snare technique Diagnosis Code(s): --- Professional --- Z80.0, Family history of malignant neoplasm of digestive organs D12.8, Benign neoplasm of rectum CPT copyright 2020 [employer]. All rights reserved. The codes documented in this report are preliminary and upon operating systems programmer reviewmay be revised to meet current compliance requirements. JUANI Tadeo DO 11/01/2024 8:36:56 AM This report has been signed electronically.Juani Tadeo DO Number of Addenda: 0 Note Initiated On: 11/01/2024 8:21 AM Scope Withdrawal Time: 0 hours 6 minutes 33 seconds Scope In: 8:26:15 AM Scope Out: 8:35:44 AM Endoscopy Department at [facility] - [address] [place] [phone] IMPRESSION: - One 6 mm polyp in [...] deeper levels were examined. 11/03/2024 12:12 PM EST [facility] Gross Description A. Large Intestine, Rectum, polyp x1 via cold snare: Labeled LI rectum, U . Received in formalin, is an approximately 0.5 cm in greatest diameter soft to rubbery, medrano-pink to red tissue fragment, which is inked black at the base, wrapped in paper and submitted in toto in one cassette, one piece, multiple levels. dvb/SL 11/03/2024 12:12 PM EST [facility] Disclaimer Unless otherwise specified, all tissue is 10% NB formalin fixed and paraffin embedded. 11/03/2024 12:12 PM EST [facility] Tissue Rectum structure / Unknown 11/01/2024 8:34 AM EST 11/01/2024 10:45 AM EST Donell Garsia MD LAB PATHOLOGY ORDERABLES Allyson l Result [facility] [address] [place] [address], * Hepatitis C antibody (07/31/2024 9:58 AM EST) Pathologist [facility] Hepatitis C Antibody Negative Negative LAB CHEMISTRY METHOD 07/31/2024 12:51 PM [facility] Blood Venous blood specimen / Unknown Venipuncture / Unknown 07/31/2024 9:58 AM EST 07/31/2024 9:58 AM EST Jermain ROGERS LAB BLOOD ORDERABLES Final Res ult [facility] [address] [place] [address], [place] [phone] * (ABNORMAL) Lipid panel with reflex to direct LDL (07/31/2024 9:58 AM EST) [facility] Cholesterol 245(H) 0 - 200 mg/dL LAB CHEMISTRY METHOD 07/31/2024 12:05 PM [facility] Triglycerides 207(H) 0 - 150 mg/dL LAB CHEMISTRY METHOD 07/31/2024 12:05 PM [facility] HDL 47 >=40 mg/dL LAB CHEMISTRY METHOD 07/31/2024 12:05 PM [facility] LDL Calculated 157(H) 0 - 100 mg/dL LAB CHEMISTRY METHOD 07/31/2024 12:05 PM [facility] VLDL Cholesterol [place] 41.4 mg/dL LAB CHEMISTRY METHOD 07/31/2024 12:05 PM [facility] Non HDL Chol. (LDL+VLDL) 198(H) <145 mg/dL LAB CHEMISTRY METHOD 07/31/2024 12:05 PM [facility] Chol/HDL Ratio 5.2(H) 0.0 - 4.4 LAB CHEMISTRY METHOD 07/31/2024 12:05 PM [facility] Blood Venous blood specimen / Unknown Venipuncture / Unknown 07/31/2024 9:58 AM EST 07/31/2024 9:58 AM EST us Jermain ROGERS LAB BLOOD ORDERABLES Final Res ult [facility] [address] [place] [address], from Last 3 Months or Most Recently Relevant to Health Maintenance Insurance [facility] Care Teams Cook Syrup Maker Relationship Specialty Start Date End Date Roxy Remy MD [address] [place] [address] PCP - General Internal Medicine 11/23/17
--- OUTSIDE RECORDS SUMMARY | 2024-11-18 07:16 | XMS_ITS | Clinical Summary ---
Author Organization [place] [facility] Address [address] [place] [address] Phone Care Team Providers Care Oil And Gas Superintendent Name Role Phone Cathi GONZALEZ, Roxy Primary Care Prov ider [phone] [facility] Un[facility] [phone] Reason for Visit and Chief Complaint [Patient [...] On 2 9:51AM By Lucian Rosen ; [facility] Ator[facility] Calcium 10 MG Oral Tablet 01/15/2022 Pr ovider: Diagnosis: Last Documented On 2 12:34PM By Mindi Nuno ; [place] [facility] Medications Administered Includes: Administered Medications from [...] Subscriber Relationship Effect oleg Dates 1 - [facility] Plan [id number] Jermain Pittman II Self Clinical Notes Includes: Clinical Notes from this encounter No Clinical Notes Recorded
--- OUTSIDE RECORDS SUMMARY | 2024-11-18 07:16 | XMS_ITS ---
Care Plan - [facility] Created on: November 18, 2024 Jermain Pittman II : 1980 Sex: Male Author Organization [place] [facility] Address [address] [place] [address] Phone Care Team Providers Care Boilers And Pressure Vessels Inspector Name Role Phone Cathi GONZALEZ, Roxy Primary Care Prov ider [phone] [facility] Unavailable [phone]
--- OUTSIDE RECORDS SUMMARY | 2024-11-18 07:16 | XMS_ITS ---
Author Organization [place] [facility] Address [address] [place] [address] Phone Care Team Providers Care Chair And Couch Maker Name Role Phone Cathi GONZALEZ, Roxy Primary Care Prov ider [phone] [facility] Unavailable [phone] Plan of Treatment No Plan of Treatment Recorded Assessments Includes: Assessments for all patient encounters No Assessments Recorded Medical Equipment - Implanted Devices Includes: Current and historical Devices No Medical Equipment Recorded Medications Includes: Current and historical Medications Current Medications (continue as prescribed) Ibuprofen 600 MG Oral Tablet 02/26/2022 Provider: Diagnosis: Last Documented On 2 9:51AM By Lucian Rosen ; [place] [facility] Atorvastatin Calcium 10 MG Oral Tablet 01/15/2022 Pr ovider: Diagnosis: Last Documented On 2 12:34PM By Mindi Nuno ; [place] [facility] Medications Administered Includes: Administered Medications in patient's chart No Administered Medications Recorded Results Includes: Results from 11/19/2023 through 11/18/2024 No Results Recorded For Specified Dates History [...] oleg Dates 1 - [facility] Plan [id number] Jermain Pittman II Self Clinical Notes Includes: Signed Clinical Notes starting from 08/30/2022 No Clinical Notes Recorded
--- OUTSIDE RECORDS SUMMARY | 2024-11-18 07:16 | XMS_ITS | Clinical Summary ---
Author Organization [place] [facility] Address [address] [place] [address] Phone Care Team Providers Care Drying Supervisor Name Role Phone Cathi GONZALEZ, Roxy Primary Care Prov ider [phone] [place] [facility] [phone] Reason for Visit and Chief Complaint Post Op Visit/Follow Up Plan of Treatment Pending Tests Order Diagnosis Results Due Ordering P mario Follow Up - Appointment 2 Weeks Displace d transverse fracture of left patella, init 01/29/22 Jeff Rahman MD Last Documented On 9:54AM ; Formerly named [facility] Assessments Includes: Assessments from this encounter No Assessments Recorded Medical Equipment - Implanted Devices Includes: Current Devices No Medical Equipment Recorded Medications Includes: Medications discussed during this encounter and other current Medications Current Medications (continue as prescribed) Ibuprofen 600 MG Oral Tablet 02/26/2022 Provider: Diagnosis: Last Documented On 2 9:51AM By Lucian Rosen ; [facility] Atorvastatin Calcium 10 MG Oral Tablet 01/15/2022 Pr ovider: Diagnosis: Last Documented On 12:34PM By Mindi Nuno ; [place] [facility] Medications Administered Includes: Administered Medications from this encounter No Administered Medications Recorded Vital Signs Includes: Vital Signs from this encounter Vital Name 01/29/2022 09:51A Pulse Rate-Sitting (bpm) 90 Temp-Oral (F) 98.4 Height (in) 70 Weight (lb) 165 Body Mass Index (kg/m2) 23.7 Body Surface Area (m2) 1.9 Oxygen Saturation (%) 98 Last Documented: On 01/29/2022 9:51AM ; Formerly named [facility] Results Includes: Results discussed during this [...] Up Jeff Rahman MD [facility] 01/30/20 22 9:40AM 10:02AM Insurance Includes: Active Insurance Policies Plan Name Member ID Group # Subscriber Relationship Effect oleg Dates 1 - [facility] [employer] [place] Plan [id number] Jermain Pittman II Self Clinical Notes Includes: Clinical Notes from this encounter No Clinical Notes Recorded
== END 2024-11-17 07:13 | disposition home or self-care (01) ==
LOC: HO.HOSX 07:12
PROVIDERS: Visit Provider Physician Assistant
DX: M25.562 Pain in left knee (principal)
CPT/HCPCS: 73562

== ENCOUNTER 2024-11-17 09:45 | Outpatient (AMB) | payer BC, SELFPAY ==
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
--- OUTSIDE RECORDS SUMMARY | 2024-11-17 10:34 | XMS_ITS | Clinical Summary ---
Author Organization [facility] Address [address] [place] [address] Phone Care Team Providers Care Kitchen Cleaner Name Role Phone Cathi GONZALEZ, [facility] Primary Care Prov ider [phone] [facility] Unavailable [phone] Reason for Visit and Chief Complaint Established Patient Plan of Treatment 1. May ambulate full weightbearing left lower extremity as tolerated. 2. Start prone flexion left knee. 3. Return to office in 2 weeks for formal physical therapy 4. Anticipate return to work April 17, 2022. - Last Documented On 02/12/2022 10:09AM ; [facility] Pending Tests Order Diagnosis Results Due Ordering Andrea martin Follow Up - Appointment 2 Weeks Displ tr ansverse fx l patella, subs for clos fx w routn heal 02/12/22 Pravin Ma MD Last Documented On 2 10:09AM ; [facility] Assessments Includes: Assessments from this encounter No Assessments Recorded Medical Equipment - Implanted Devices Includes: Current Devices No Medical Equipment Recorded Medications Includes: Medications discussed during this encounter and other current Medications Current Medications (continue as prescribed) Ibuprofen 600 MG Oral Tablet 02/26/2022 Provider: Diagnosis: Last Documented On 2 9:51AM By Lucian Rosen ; [facility] Atorvastatin Calcium 10 MG Oral Tablet 01/15/2022 Pr ovider: Diagnosis: Last Documented On 2 12:34PM By Mindi Nuno ; [facility] Medications Administered Includes: Administered Medications from this encounter No Administered Medications Recorded Vital Signs Includes: Vital Signs from this encounter Vital Name 02/12/2022 09:44A Blood Pressure Sitting (mmHg) 120/70 Pulse Rate-Sitting (bpm) 70 Temp-Oral (F) 97.9 Height (in) 70 Weight (lb) 165 Body Mass Index (kg/m2) 23.7 Body Surface Area (m2) 1.9 Oxygen Saturation (%) 98 Last Documented: On 02/12/2022 9:45AM ; [facility], Results Includes: Results discussed during this encounter No Results Recorded For Specified Dates History of Present Illness Includes: History of Present Illness from this encounter HPI The patient is a 41-year-old male. He underwent open reduction internal fixation of the left patella fracture on 01/16/2022. Is here today for follow-up. Is been roughly 1 month since the surgery. Social History No Social History Recorded - Smoking Status Unknown Medical History Includes: Medical History addressed during this encounter No Medical History Recorded Family History Includes: Family History addressed during this encounter No Family History Recorded Review of Systems Includes: Review of Systems from this encounter 1. 1 month status post open reduction internal fixation left patella using wire fixation. 2. Old fracture proximal left tibia treated with 2 screws. Mental Status Includes: Mental Status from this encounter No Mental Status Recorded Functional Status Includes: Functional Status from this encounter No Functional Status Recorded Physical Exam Includes: Physical Exam from this encounter Allergies Includes: Active Allergies No Known Allergies Encounters Encounter Provider Location Date Check-In Time Check-Out Time Diagnosis Established Patient Pravin [facility] 02/13/20 22 9:40AM 10:08AM Insurance Includes: Active Insurance Policies Plan Name Member ID Group # Subscriber Relationship Effect oleg Dates 1 - [facility] [id number] Jermain Pittman II Self Clinical Notes Includes: Clinical Notes from this encounter No Clinical Notes Recorded
--- OUTSIDE RECORDS SUMMARY | 2024-11-17 10:35 | XMS_ITS | Encounter Summary ---
Author Organization [employer] Address [address] [place] [address] Care Team Providers Care Route Relief Driver Name Role Phone Roxy Winkler MD Primary Care Prov ider Reason for Referral * Imaging (Routine) - Closed Specialty Diagnoses / Procedures Referred By Contac t Referred To Contact Radiology Diagnoses Kidney stone Procedures US Retroperitoneal Complete Roxy Winkler MD [address] [place] [address] Phone: tel: fax: [address] [address] Phone: tel: Referral ID Status Reason Start Date Expiration Date Visits Re quested Visits Authorized [id number] Closed 11/06/2024 11/06/2025 1 1 Reason for Visit * Reason Comments Follow-up Encounter Details Date Type Department Care Team (Latest Contact Info) Description 11/06/2024 8:45 AM EST Office Visit Adult Medicine - [address] [id number] Roxy Baxter MD [address] [place] [address] Familial hypercholesterolemia (Primary Dx); Osteoporosis, unspecified osteoporosis type, unspecified pathological fracture presence; Kidney stone; Family history of colon cancer in father; Psoriasis Social History Tobacco Use Types Packs/Day Years Used Date Smoking Tobacco: Never Smokeless Tobacco: Never Tobacco Cessation:Counseling Given: Not Answered Alcohol Use Standard Drinks/Week Comments Yes 0 [...] care for your loved ones. For example, early childhood educator aide or elderly care for an older adult? [...] AM EST documented as of this encounter Last Filed Vital Signs Vital Sign [place] Time Taken Comments Blood Pressure 128/75 11/06/2024 8:55 AM EST Pulse 102 11/06/2024 8:55 AM EST Temperature 36.8 ??C (98.2 ??F) 11/06/2024 8:55 AM ES T Respiratory Rate - - Oxygen Saturation - - Inhaled Oxygen Concentration - - Weight 83.4 kg (183 lb 12.8 oz) 11/06/2024 8:55 AM EST Height - - Body Mass Index 26.37 11/01/2024 7:36 AM EST documented in this encounter Ordered Prescriptions Prescription Sig Dispense Quantity Refills Last Filled Start Date End Date valACYclovir (VALTREX) 500 mg tablet Take 1 tablet (500 mg total) by mouth 1 (one) time each day. 90 each 1 11/06/2024 05/05/2025 documented in this encounter Progress Notes * Roxy Winkler MD - 11/06/2024 8:45 AM EST Vaseline and vapor rub at night * Roxy Winkler MD - 11/06/2024 8:45 AM EST CHIEF COMPLAINT: Follow-up IDENTIFIER: Jermain Pittman is a 44 y.o. old male. HPI: Patient presents for follow-up he presents with his . I last saw patient metlinda almost 5 years ago. He has a history of herpes hypercholesterolemia left ankle pain He says that he was recently diagnosed with kidney stones and would like to have follow-up. He needs a few prescriptions refilled He has noticed a rash on his hands very itchy does have a history of psoriasis ROS: See HPI PAST MEDICAL HISTORY: Patient Active Problem List Diagnosis Date Noted Family history of colon cancer in father 07/31/2024 Chronic back pain greater than 3 months duration 06/21/2024 Spontaneous pneumothorax 06/21/2024 Osteoporosis 09/01/2023 Genital herpes 05/28/2023 Snoring 09/17/2021 Kidney cyst, acquired 10/09/2019 Familial hypercholesterolemia 07/28/2019 Right inguinal hernia 11/02/2017 Left knee pain 01/26/2009 Other chest pain 09/23/2005 SOCIAL HISTORY: Social History Tobacco Use Smoking status: Never Smokeless tobacco: Never Substance Use Topics Alcohol use: Yes Comment: very rare FAMILY HISTORY: Family Status Relation Name Status Mother Alive Father Alive Sister Alive Sister Alive Sister Alive MGM MGF PGM Alive PGF Daughter Alive, age 22y No partnership data on file Family History Problem Relation Name Age of Onset Diabetes Mother Thyroid disease Mother Other (Other: kidney disease) Mother Hyperlipidemia Father Hypertension Father Blindness Father Glaucoma Father Colon cancer Father Diabetes Sister Thyroid disease Sister No Known Problems Sister No Known Problems Maternal Grandmother No Known Problems Maternal Grandfather Hyperlipidemia Paternal Grandmother Osteoporosis Paternal Grandmother Dementia Paternal Grandmother Hyperlipidemia Paternal Grandfather No Known Problems Daughter ACTIVE MEDICATIONS: Outpatient Medications Marked as Taking for the 11/06/24 encounter (Office Visit) with Roxy Winkler MD Medication Sig Dispense Refill atorvastatin (LIPITOR) 10 mg tablet TAKE 1 TABLET BY MOUTH EVERY DAY 90 tablet 1 calcium carbonate 1,500 mg (600 mg elemental calcium) tablet Take 1 tab daily 90 tablet 1 cholecalciferol (VITAMIN D-3) 50 mcg (2,000 unit) capsule Take 1 capsule (2,000 Units total) by mouth daily. cyclobenzaprine (FLEXERIL) 5 mg tablet Take 1 tablet (5 mg total) by mouth 1 (one) time each day. 30 tablet 0 valACYclovir (VALTREX) 500 mg tablet Take 1 tablet (500 mg total) by mouth 1 (one) time each day. 90 each 1 ALLERGIES: Patient has no known allergies. PHYSICAL EXAM: Blood pressure 128/75, pulse 102, temperature 36.8 ??C (98.2 ??F), weight 83.4 kg (183 lb 12.8 oz).Body mass index is 26.37 kg/m??. Plan is deferred until next visit APPEARANCE: Alert and in no acute distress EYES: PERRLA, conjunctiva and sclera normal EARS: External ears normal. Canals clear. TMs normal. NOSE/SINUS: Nares normal. Septum midline. Mucosa normal. No drainage or sinus tenderness MOUTH/THROAT: no erythema, lesions, or exudates NECK: Neck supple, no adenopathy, thyroid symmetric and of normal size HEART: RRR with normal S1 and S2, no murmurs, no gallops, no JVD appreciated LUNG: clear to auscultation bilaterally LYMPH NODES: grossly normal Skin raised macular rash on dorsum of right hand well-circumscribed LABS: Wt Readings from Last 3 Encounters: 11/06/24 0855 83.4 kg (183 lb 12.8 oz) 11/01/24 0736 81.6 kg (180 lb) 08/08/24 1106 82 kg (180 lb 12.8 oz) Lipid profile comprehensive metabolic ultrasound IMPRESSION: 1. Familial hypercholesterolemia 2. Osteoporosis, unspecified osteoporosis type, unspecified pathological fracture presence 3. Kidney stone 4. Family history of colon cancer in father 5. Psoriasis PLAN: Familial hypercholesterolemia Continue Lipitor 10 mg Will check lipid profile Osteoporosis On Reclast However patient says he has not received his Reclast Have advised patient to call endocrine to set up the injections Kidney stones Patient says he passed a kidney stone Will send patient for ultrasound if kidney stones presents for refer to urology Psoriasis Flareup on his hand We discussed about skin care Weight if no improvement refer to dermatology Will call patient when results are available Return to the office in 6 months for yearly physical Orders Placed This Encounter Procedures US Retroperitoneal Complete Lipid panel with reflex to direct LDL Comprehensive metabolic panel ADDITIONAL ORDERS: None Roxy Winkler MD on 11/06/2024 at 6:40 PM EST documented in this encounter Plan of Treatment Upcoming Encounters Date Type Department Care Team (Late st Contact Info) Description 08/08/2025 9:30 AM EST Office Visit [address] [phone] Amada Reynolds PA [address] [place] [address] Scheduled Orders Name Type Priority Associated Diagnoses Orde r Schedule Lipid panel with reflex to direct LDL Lab Routine Familial hypercholesterolemia 1 Occurrences starting 11/06/2024 until 11/06/2025 Comprehensive metabolic panel Lab Routine Familial hypercholesterolemia 1 Occurrences starting 11/06/2024 until 11/06/2025 documented as of this encounter Results * US Retroperitoneal Complete (11/06/2024 2:21 PM EST) Anatomical Region Laterality Modality Body Ultrasound 11/06/2024 2:50 PM EST Narrative 11/06/2024 2:52 PM EST Retroperitoneal ultrasound. History rule out arm renal stones. History of renal cyst. Comparison with previous examination from 08/14/2020. Right kidney measures 11 cm in long axis. There is a simple cyst in the lower pole measuring 1.3 x 1.3 x 1 cm. Left kidney measures 11.5 cm in long axis. No focal abnormalities were identified. There is no evidence of nephrolithiasis, hydronephrosis, perinephric fluid collections or solid masses or is outside. Urinary bladder was visualized with prevoid volume of 417.1 cc. No focal abnormalities identified in the urinary bladder. Postvoid volume is 15.9 cc. Bilateral ureteral jets were seen. Prostate volume is 18.8 cc. CONCLUSIONS: No evidence of nephrolithiasis. Small cyst in the lower pole of the right kidney. -------- FINAL REPORT -------- Dictated By: Olivia Monroe Dictated Date: 11/06/2024 14:50 ET Assigned Physician: Olivia Monroe Reviewed and Electronically Signed By: Olivia Monroe Signed Date: 11/06/2024 14:52 ET Workstation ID: [id number] Transcribed By: Self Edit Transcribed Date: 11/06/2024 14:50 ET Procedure Note Olivia Monroe MD - 11/06/2024 Retroperitoneal ultrasound. History rule out arm renal stones. History of renal cyst. Comparison with previous examination from 08/14/2020. Right kidney measures 11 cm in long axis. There is a simple cyst in thelower pole measuring 1.3 x 1.3 x 1 cm. Left kidney measures 11.5 cm inlong axis. No focal abnormalities were identified. There is no evidence of nephrolithiasis, hydronephrosis, perinephric fluidcollections or solid masses or is outside. Urinary bladder was visualized with prevoid volume of 417.1 cc. No focalabnormalities identified in the urinary bladder. Postvoid volume is 15.9cc. Bilateral ureteral jets were seen. Prostate volume is 18.8 cc. CONCLUSIONS: No evidence of nephrolithiasis. Small cyst in the lower poleof the right kidney. -------- FINAL REPORT -------- Dictated By: Olivia Monroe Dictated Date: 11/06/2024 14:50 ET Assigned Physician: Olivia Monroe Reviewed and Electronically Signed By: Olivia Monroe Signed Date: 11/06/2024 14:52 ET Workstation ID: [id number] Transcribed By: Self Edit Transcribed Date: 11/06/2024 14:50 ET us Roxy Winkler MD [facility] [place]EDURES Final Result documented in this encounter Visit Diagnoses Diagnosis Familial hypercholesterolemia- Primary Osteoporosis, unspecified osteoporosis type, unspecified pathological fracture presence Kidney stone Calculus of kidney Family history of colon cancer in father Psoriasis Other psoriasis Kidney stone Calculus of kidney documented in this encounter Discontinued Medications Medication Sig Discontinue Reason Start Date End Da te valACYclovir (VALTREX) 500 mg tablet Take 1 tablet (500 mg total) by mouth 2 (two) times a day. Reorder 11/06/2024 documented as of this encounter Additional Health Concerns Assessment Noted Time PHQ-9 Depression Total Score: 0 10/20/19 25 2:29 PM EST documented as of this encounter Care Teams Route Relief Driver Relationship Specialty Start Date End Date Roxy Winkler MD [address] [place] [id number] PCP - General Internal Medicine 11/23/17 documented as of this encounter
--- OUTSIDE RECORDS SUMMARY | 2024-11-17 10:35 | XMS_ITS | Clinical Summary ---
Author Organization [facility] Address [address] [place] [address] Phone Care Team Providers Care Aviation Survival Technician Name Role Phone Cathi GONZALEZ, Roxy Primary Care Prov ider [phone] [facility] Unavailable [phone] Reason for Visit and Chief Complaint Post Op Visit/Follow Up Plan of Treatment Pending Tests Order Diagnosis Results Due Ordering P mario Follow Up - Appointment 1 Month Displ tr ansverse fx l patella, subs for clos fx w routn heal 02/26/22 Jeff Rahman MD Last Documented On 2 9:57AM ; [facility] Assessments Includes: Assessments from this encounter No Assessments Recorded Medical Equipment - Implanted Devices Includes: Current Devices No Medical Equipment Recorded Medications Includes: Medications discussed during this encounter and other current Medications Current Medications (continue as prescribed) Ibuprofen 600 MG Oral Tablet 02/26/2022 Provider: Diagnosis: Last Documented On 2 9:51AM By Lucian Rosen ; [facility] Atorvastatin Calcium 10 MG Oral Tablet 01/15/2022 Pr ovider: Diagnosis: Last Documented On 2 12:34PM By Mindi Nuno ; [facility] Medications Administered Includes: Administered Medications from this encounter No Administered Medications Recorded Vital Signs Includes: Vital Signs from this encounter Vital Name 02/26/2022 09:36A Blood Pressure Sitting (mmHg) 132/84 Pulse Rate-Sitting (bpm) 83 Temp-Oral (F) 97.2 Height (in) 70 Weight (lb) 160 Body Mass Index (kg/m2) 23.0 Body Surface Area (m2) 1.9 Oxygen Saturation (%) 99 Last Documented: On 02/26/2022 9:37AM ; [facility] Results Includes: Results discussed during this encounter No Results Recorded For Specified Dates History of Present Illness Includes: History of Present Illness from this encounter No History of Present Illness Recorded Social History No Social History Recorded - Smoking Status Unknown Medical History Includes: Medical History addressed during this encounter No Medical History Recorded Family History Includes: Family History addressed during this encounter No Family History Recorded Review of Systems Includes: Review of Systems from this encounter No Review of Systems Recorded Mental Status Includes: Mental Status from this encounter No Mental Status Recorded Functional Status Includes: Functional Status from this encounter No Functional Status Recorded Physical Exam Includes: Physical Exam from this encounter Allergies Includes: Active Allergies No Known Allergies Encounters Encounter Provider Location Date Check-In Time Check-Out Time Diagnosis Post Op Visit/Follow Up Jeff Rahman MD [facility] 02/27/20 22 9:20AM 9:56AM Insurance Includes: Active Insurance Policies Plan Name Member ID Group # Subscriber Relationship Effect oleg Dates 1 - [facility] [place] [employer] Plan [id number] Jermain Pittman II Self Clinical Notes Includes: Clinical Notes from this encounter No Clinical Notes Recorded
--- OUTSIDE RECORDS SUMMARY | 2024-11-17 10:35 | XMS_ITS | Encounter Summary ---
Author Organization [facility] Address [address] [place] [address] Care Team Providers Care Machinist Automotive Name Role Phone Roxy Winkler MD Primary Care Prov ider Reason for Referral * Imaging (Routine) - Closed Specialty Diagnoses / Procedures Referred By Linda t Referred To Contact Radiology Diagnoses Kidney stone Procedures US Retroperitoneal Complete Roxy Winkler MD [address] [place], [place] Phone: tel: fax: [facility] [address] [address] Phone: tel: Referral ID Status Reason Start Date Expiration Date Visits Re quested Visits Authorized [id number] Closed 11/06/2024 11/06/2025 1 1 Reason for Visit * Imaging (Routine) - Closed Specialty Diagnoses / Procedures Referred By Contac t Referred To Contact Radiology Diagnoses Kidney stone Procedures US Retroperitoneal Complete Roxy Winkler MD [address] [place], [place] Phone: tel: fax: [facility] [address] [address] Phone: tel: Referral ID Status Reason Start Date Expiration Date Visits Re quested Visits Authorized [id number] Closed 11/06/2024 11/06/2025 1 1 Encounter Details Date Type Department Care Team (Latest Contact Info) Description 11/06/2024 1:51 PM EST - 11/06/2024 11:59 PM EST Hospital Encounter [facility]trasound [facility] [address] [place] [address] Kidney stone Discharge Disposition: Home or Self Care Social History Tobacco Use Types Packs/Day Years [...] care for your loved ones. For example, child care assistant or elderly care for an older adult? [...] AM EST documented as of this encounter Medications at Time of Discharge atorvastatin (LIPITOR) 10 mg tabletIndications :Hyperlipidemia, unspecified TAKE 1 TABLET BY MOUTH EVERY DAY 90 tablet 1 10/30/2024 calcium carbonate 1,500 mg (600 mg elemental calcium) tablet Take 1 tab daily 90 tablet 1 07/25/2024 cholecalciferol (VITAMIN D-3) 50 mcg (2,000 unit) capsule Take 1 capsule (2,000 Units total) by mouth daily. 07/26/2024 07/26/2025 cyclobenzaprine (FLEXERIL) 5 mg tablet Take 1 tablet (5 mg total) by mouth 1 (one) time each day. 30 tablet 10/20/2024 ibuprofen (ADVIL,MOTRIN) 600 mg tablet Take 1 tablet (600 mg total) by mouth every 6 (six) hours if needed (pain). 07/14/2023 valACYclovir (VALTREX) 500 mg tablet Take 1 tablet (500 mg total) by mouth 1 (one) time each day. 90 each 1 11/06/2024 05/05/2025 documented as of this encounter Discharge Disposition Disposition Code Departure Means Destination Home or Self Care documented in this encounter Plan of Treatment Upcoming Encounters Date Type Department Care Team (Late st Contact Info) Description 08/08/2025 9:30 AM EST Office Visit Endocrinology - [place] [address] [place] [address] Amada Reynolds PA [address] [place] [address] documented as of this encounter Procedures Procedure Name Priority Date/Time Associated Diagnosis Comments US RETROPERITONEAL COMPLETE Routine 11/06/2024 2:21 PM EST Kidney stone documented in this encounter Results * US Retroperitoneal Complete [...] Signed Date: 11/06/2024 14:52 ET Workstation ID: [id number] Transcribed By: Self Edit Transcribed Date: 11/06/2024 [...] Signed Date: 11/06/2024 14:52 ET Workstation ID: [id number] Transcribed By: Self Edit Transcribed Date: 11/06/2024 14:50 ET us Roxy Winkler MD IMG US PROCEDURES Final Result documented in this encounter Visit Diagnoses Diagnosis Kidney stone Calculus of kidney documented in this encounter Additional Health Concerns Assessment Noted Time PHQ-9 Depression Total Score: 0 10/20/19 25 2:29 PM EST documented as of this encounter Care Teams Machinist Automotive Relationship Specialty Start Date End Date Roxy Winkler MD [address] [place] [id number] PCP - General Internal Medicine 11/23/17 documented as of this encounter
--- OUTSIDE RECORDS SUMMARY | 2024-11-17 10:35 | XMS_ITS | Encounter Summary ---
Author Organization [employer] Address [address] [place] [address] Care Team Providers Care Veneer Matcher Name Role Phone Roxy Winkler MD Primary Care Prov ider Reason for Referral * Consultation (Routine) - Pending Review Specialty Diagnoses / Procedures Referred By Linda kohler Referred To Contact Orthopaedics Diagnoses Chronic pain of left knee Roxy Winkler MD [address] [place] [address] Phone: tel: fax: Referral ID Status Reason Start Date Expiration Date Visits Requested Visits Authorized [id number] Pending Review Specialty Services Required 11/13/2024 11/13/2025 6 6 Scheduling Instructions pecialty FIRST and LAST NAME of SPECIALIST PATIENT is seeing: Vandana Montenegro-[id number] What specialty is this? Orthopedics DIAGNOSIS Patient is being seen for (Not a body part or a procedure): Pain in left knee Have you seen this SPECIALIST for this PROBLEM/DX before? If YES, when? No Have you checked REVIEW or the APPT DESK to see if this referral has already been done or has visits left? yes Is this visit: Initial Visit Address of Specialist: [address] [place] [address] Phone # of Specialist: [phone] Fax #: (if applicable): [phone] Does patient have an appointment scheduled?: yes Date of appointment- (including a retro-request): 11/17/2024 6-visits * Consultation (Routine) - Pending Review Specialty Diagnoses / Procedures Referred By Linda kohler Referred To Contact Orthopaedics Diagnoses Chronic pain of left knee Roxy Winkler MD [address] [place] [address] Phone: tel: fax: Vandana Montenegro PA [address] [place] [address] Referral ID Status Reason Start Date Expiration Date Visits Requested Visits Authorized [id number] Pending Review Specialty Services Required 11/13/2024 11/13/2025 1 1 Reason for Visit * Reason Onset Date Comments Referral 11/07/2024 Left Knee Pain Encounter Details Date Type Department Care Team (Late st Contact Info) Description 11/07/2024 Telephone Adult Medicine - [address] [phone] Roxy Winkler MD [address] [place] [address] Referral (Left Knee Pain) Social History Tobacco Use Types Packs/Day Years [...] for your loved ones. For example, child psychometrist or elderly care for an older adult? [...] as of this encounter Progress Notes * Lian Kulkarni - 11/07/2024 7:34 AM EST Referral Request: What insurance does the patient have today? [facility] Referrals cannot be processed if the insurance is not accurate. If the insurance listed above in red is NO BILLING INFORMATION FOUND FOR THIS ENCOUTNER The patients correct insurance must be obtained and registered in [facility] or their referral can not be processed. Is this a retro request? no. If yes for what date of service do you need the retro referral? not applicable Who is calling to request this referral? [place]coming [place] [facility] If the caller is not the patient, what is their name? not applicable Ask the patient WHO referred them to this specialty: Patient saw Dr. Arnold at [facility] for the problem and was told if symptoms did not resolve or worsen they would refer them to this specialty FIRST and LAST NAME of SPECIALIST PATIENT is seeing: Vandana Montenegro-[id number] What specialty is this? Orthopedics DIAGNOSIS Patient is being seen for (Not a body part or a procedure): Pain in left knee Have you seen this SPECIALIST for this PROBLEM/DX before? If YES, when? No Have you checked REVIEW or the APPT DESK to see if this referral has already been done or has visits left? yes Is this visit: Initial Visit Address of Specialist: [address] [place] [address] Phone # of Specialist: [phone] Fax #: (if applicable): [phone] Does patient have an appointment scheduled?: yes Date of appointment- (including a retro-request): 11/17/2024 6-visits Is this appointment related to: NA documented in this encounter Plan of Treatment Upcoming Encounters Date Type Department Care Team (Late st Contact Info) Description 08/08/2025 9:30 AM EST Office Visit Endocrinology - [place] [address] [place] [address] Amada Reynolds PA [address] [place] [address] Scheduled Referrals Name Type Priority Associated Diagnoses Order Schedule Ambulatory referral to Orthopedic Outpatient Referral Routine Chronic pain of left knee Expected: 11/13/2024, Expires: 11/09/2025 Ambulatory referral to Orthopedic Outpatient Referral Routine Chronic pain of left knee 1 Occurrences starting 11/13/2024 until 11/13/2025 documented as of this encounter Visit Diagnoses Diagnosis Chronic pain of left knee- Primary documented in this encounter Additional Health Concerns Assessment Noted Time PHQ-9 Depression Total Score: 0 10/20/19 25 2:29 PM EST documented as of this encounter Care Teams Veneer Matcher Relationship Specialty Start Date End Date Roxy Winkler MD [address] [place] [address] PCP - General Internal Medicine 11/23/17 documented as of this encounter
--- OUTSIDE RECORDS SUMMARY | 2024-11-17 10:35 | XMS_ITS | Encounter Summary ---
Author Organization [facility] Address [address] [place] [address] Care Team Providers Care Fast Food Cashier Name Role Phone Roxy Winkler MD Primary Care Prov ider Encounter Details Date Type Department Care Team (Late st Contact Info) Description 11/01/2024 8:21 AM EST Anesthesia Event [facility] Endoscopy [address] [place] [phone] David Gibson MD [address] [place] [address] Anesthesia Record Procedure Summary Procedure Name Responsible Anesthesiologist Anesthesia Start Time Anesthesia Stop Time COLONOSCOPY David Gibson MD 11/01/24 0821 11/01/24 0854 Events Date Time Event Comment 11/01/2024 0802 0821 An Start 0822 In Room 0823 An Start Data The patient wa s reevaluated immediately before moderate or deep sedation use and before anesthesia induction. 0825 Anesthesia Ready 0838 Ortega Pt vomited. VSS . Airway maintained. 0839 an stop data 0839 Out of Room 0854 Handoff to RN I completed my handoff to the receiving nurse during which we: 1. Identified the patient 2. Identified the responsible provider 3. Reviewed the pertinent medical history 4. Discussed the surgical course 5. Reviewed intra-op anesthesia management and issues during anesthesia 6. Set expectations for post-procedure period 7. Allowed opportunity for questions and acknowledgement of understanding. 0854 An Stop Meds Name Total propofol (DIPRIVAN) injection 10 mg/mL 1 50 mg lidocaine PF (XYLOCAINE-MPF) local injec tion 2% 5 mL lactated Ringer's infusion 200 mL * Agents No agents on file. * Blood No blood administrations on file. Lines, Drains, and Airways Type Details Placement Removal Peripheral IV Placement Date: 11/01/24; Placement Time: 736; Catheter Size: 20 G; Orientation: Posterior, Right; Location: Wrist; Insertion Attempts: 1; Patient Tolerance: Tolerated well; Removal Date: 11/01/24; Removal Time: 90311/01/24 07 by Joslyn Higgins RN 11/01/24903 by Luisa Plummer RN documented in this encounter Social History Tobacco Use Types Packs/Day Years [...] for your loved ones. For example, child nurse or elderly care for an older adult? [...] as of this encounter Progress Notes * Selina Garcias CRNA - 11/01/2024 8:54 AM EST Patient: Jermain Pittman Procedure Summary Date: 11/01/24 Room / Location: [facility] Endoscopy Anesthesia Start: 820 Anesthesia Stop: 853 Procedure: COLONOSCOPY Diagnosis: Family history of colon cancer (Colon cancer screening in patient at increased risk: Colon cancer in mother) Scheduled Providers: Adolfo Tadeo DO; Selina Garcias CRNA; David Gibson MD Responsible Provider:David Gibson MD Anesthesia Type: MAC ASA Status: 2 Anesthesia Plan: MAC Last Vitals: Vitals Value Taken Time BP Visit Vitals BP (!) 138/90 Pulse 95 Temp 35.7 ??C (96.2 ??F) (Tympanic) Resp 16 Ht 1.778 m (70 ) Wt 81.6 kg (180 lb) SpO2 94% BMI 25.83 kg/m?? Smoking Status Never BSA 2 m?? Temp Pulse Resp SpO2 No data recorded Anesthesia Post Evaluation Patient location during evaluation: PACU Patient participation: complete - patient participated Level of consciousness: awake Pain score: 0 Pain management: adequate Airway patency: patent Anesthetic complications: no Cardiovascular status: acceptable Respiratory status: acceptable Hydration status: acceptable Nausea: No Vomiting: Yes There were no known notable events for this encounter. * David Gibson MD - 11/01/2024 8:01 AM EST 44 y.o. male scheduled for [COLONOSCOPY [GI6]] Ht Readings from Last 1 Encounters: 11/01/24 1.778 m (70 ) Wt Readings from Last 1 Encounters: 11/01/24 81.6 kg (180 lb) Body mass index is 25.83 kg/m??. Past Medical History: Diagnosis Date ??? Hyperlipidemia 11/13/2012 DX:Hyperlipidemia ??? Kidney stone ??? Right inguinal hernia 11/02/2017 DX:Right inguinal hernia Past Surgical History: Procedure Laterality Date ??? HERNIA REPAIR PROCEDURE: LAPAROSCOPY, INGUINAL HERNIA REPAIR ??? KNEE SURGERY 2007 PROCEDURE: HISTORICAL KNEE SURGERY; COMMENT: 2007 lower tibia, 2022 patella ??? VASECTOMY 2019 PROCEDURE: DE VASECTOMY UNI/BI SPX W/POSTOP SEMEN EXAMS ??? WRIST SURGERY 2007, 2009 PROCEDURE: HISTORICAL WRIST SURGERY; COMMENT: L; ??? WRIST SURGERY 2012 PROCEDURE: HISTORICAL WRIST SURGERY; COMMENT: Right; Tresa Denies anesthesia complications No Known Allergies Current Outpatient Medications on File Prior to Encounter Medication Sig Dispense Refill ??? atorvastatin (LIPITOR) 10 mg tablet TAKE 1 TABLET BY MOUTH EVERY DAY 90 tablet 1 ??? calcium carbonate 1,500 mg (600 mg elemental calcium) tablet Take 1 tab daily 90 tablet 1 ??? cholecalciferol (VITAMIN D-3) 50 mcg (2,000 unit) capsule Take 1 capsule (2,000 Units total) bymouth daily. ??? cyclobenzaprine (FLEXERIL) 5 mg tablet Take 1 tablet (5 mg total) by mouth 1 (one) time each day. 30 tablet 0 ??? ibuprofen (ADVIL,MOTRIN) 600 mg tablet Take 1 tablet (600 mg total) by mouth every 6 (six) hours if needed (pain). ??? valACYclovir (VALTREX) 500 mg tablet Take 1 tablet (500 mg total) by mouth 2 (two) times a day. ??? zoledronic acid (RECLAST) 5 mg/100 mL piggyback Infuse 100 mL (5 mg total) into a venous catheter 1 (one) time for 1 dose. 100 mL 0 ??? [DISCONTINUED] atorvastatin (LIPITOR) 10 mg tablet Take 1 tablet (10 mg total) by mouth 1 (one)time each day. No current facility-administered medications on file prior to encounter. Current In-hospital Medications Social History Tobacco Use ??? Smoking status: Never ??? Smokeless tobacco: Never Vaping Use ??? Vaping status: Never Used Substance Use Topics ??? Alcohol use: Yes Comment: very rare ??? Drug use: No Is the patient a current smoker (e.g. cigarette, cigar, pip, e-cigarette, or mariajuana)? Yes [] No[x] Patient previously instructed to abstain from smoking on the day of procedure? Yes [] No[] Patient smoked on the day of procedure? Yes [] No[] ASPIRE smoking VBR: [] Not interested in quitting [] Interested in quitting- referred to treatment [] Interested in quitting - treatment provided Visit Vitals BP (!) 145/108 Pulse 100 Temp 35.7 ??C (96.2 ??F) (Tympanic) Resp 22 Ht 1.778 m (70 ) Wt 81.6 kg (180 lb) SpO2 100% BMI 25.83 kg/m?? Smoking Status Never BSA 2 m?? Available cardiac studies reviewed: No results found. EKG No results found for this or any previous visit (from the past 4464 hours). ECHO No results found for this or any previous visit. CATH No results found for this or any previous visit. LABS: Lab Results Component Value Date WBC 6.7 07/31/2024 HGB 14.2 07/31/2024 HCT 43.6 07/31/2024 MCV 79.1 07/31/2024 PLT 275 07/31/2024 Lab Results Component Value Date GLUCOSE 97 07/31/2024 CALCIUM 10.2 07/31/2024 NA 136 07/31/2024 K 4.6 07/31/2024 CO2 27 07/31/2024 CL 104 07/31/2024 BUN 13 07/31/2024 CREATININE 1.01 07/31/2024 No results found for: INR , PROTIME No results found for: PTT Denies cardiac, pulm, neuro, hepatic or renal s/sx. Patient meets ASA guidelines for NPO status. > 4 mets without anginal symptoms. Relevant labs, vitals, imaging, cardiac and pulmonary studies as well as HPI, Meds, Allergies, ROS,PMH, PSH, SH, and FH reviewed. Relevant Problems No relevant active problems Clinical information reviewed: Tobacco Allergies Meds Med Hx Surg Hx Fam Hx Soc Hx Anesthesia Plan ASA 2 Anesthesia Plan: MAC Comment: (Panic attack with face mask O2. Nasal cannula ok.) Anesthesia Considerations MAC Anesthesia Risks Discussed allergic reaction, dental injury, serious complications, pain and corneal abrasion Plan Factors Patient is not a current smoker Smoking cessation education has not been provided Induction method: intravenous Anesthetic plan and risks discussed with patient. Use of blood products discussed with patient who. Anesthesia Plan discussed with TELEGRAPH SERVICE RATER. Anesthesia Evaluation Patient summary reviewed and Nursing notes reviewed Airway Mallampati: III Thyromental distance: >3 FB Neck ROM: fullnot intubatedno noted risk Dental - normal exam Pulmonary breath sounds clear to auscultation Cardiovascular Rhythm: regular Rate: normal Neuro/Psych Mental Status: alert and oriented GI/Hepatic/Renal (+) chronic renal disease Endo/Other Abdominal Abdomen: soft. Bowel sounds: normal. PONV RISK SCORE: 1 Vitals: 11/01/24 0736 BP: (!) 145/108 Pulse: 100 Resp: 22 Temp: 35.7 ??C (96.2 ??F) TempSrc: Tympanic SpO2: 100% Weight: 81.6 kg (180 lb) Height: 1.778 m (70 ) SpO2 Readings from Last 1 Encounters: 11/01/24 100% WBC Date Value Ref Range Status 07/31/2024 6.7 4.8 - 10.8 K/mcL Final RBC Date Value Ref Range Status 07/31/2024 5.50 4.50 - 5.50 M/mcL Final Hemoglobin Date Value Ref Range Status 07/31/2024 14.2 13.5 - 17.5 g/dL Final Hematocrit Date Value Ref Range Status 07/31/2024 43.6 42.0 - 54.0 % Final Platelets Date Value Ref Range Status 07/31/2024 275 130 - 400 K/mcL Final MCV Date Value Ref Range Status 07/31/2024 79.1 79.0 - 98.0 FL Final No Known Allergies STOP BANG: No data recorded NPO Status: Time of Last Liquid: 0600 documented in this encounter Plan of Treatment Upcoming Encounters Date Type Department Care Team (Late st Contact Info) Description 08/08/2025 9:30 AM EST Office Visit Endocrinology - [place] [address] [place] [address] Amada Reynolds PA [address] [place] [address] documented as of this encounter Visit Diagnoses Not on filedocumented in this encounter Administered Medications Inactive Administered Medications - up to 3 most recent administrations Medication Order MAR Action Action Date Dose Rate Site lactated Ringer's infusion intravenous, Continuous PRN, Starting on Wed11/01/24 at 0853, Anesthesia Intraprocedure New Bag 11/01/2024 8:53 AM EST 75 mL/hr lidocaine (PF) (XYLOCAINE-MPF) 2 % injection injection, As needed, Starting on Wed11/01/24 at 0836, Anesthesia Intraprocedure Given 11/01/2024 8:36 AM EST 5 mL propofoL (DIPRIVAN) injection intravenous, As needed, Starting on Wed11/01/24 at 0836, Anesthesia Intraprocedure Given 11/01/2024 8:36 AM EST 150 mg documented in this encounter Additional Health Concerns Assessment Noted Time PHQ-9 Depression Total Score: 0 10/20/19 25 2:29 PM EST documented as of this encounter Care Teams Fast Food Cashier Relationship Specialty Start Date End Date Roxy Winkler MD [address] [place] [phone] PCP - General Internal Medicine 11/23/17 documented as of this encounter
--- OUTSIDE RECORDS SUMMARY | 2024-11-17 10:36 | XMS_ITS | Encounter Summary ---
Author Organization [employer] Address [address] [place] [address] Care Team Providers Care Silk Screen Printing Racker Name Role Phone Roxy Winkler MD Primary Care Prov ider Reason for Visit * Reason Onset Date Comments Med Refill Rash 10/17/2024 Encounter Details Date Type Department Care Team (Late st Contact Info) Description 10/17/2024 Nurse Triage Adult Medicine [facility] [address] [place] [address] Jermain Mtz PA [address] [place] [address] Med Refill; Rash Social History Tobacco Use Types Packs/Day Years [...] for your loved ones. For example, children's author or elderly care for an older adult? [...] What is your living situation? 1 09/30/2023 Sex and Gender Information Value Date Recorded Sex Assigned at Male 10/27/2024 9:38 AM EST Legal Sex Male 5:42 PM EST Gender Identity Male 10/27/2024 9:38 AM EST Sexual Orientation Straight 10/27/2024 9: 38 AM EST documented as of this encounter Progress Notes * Shama Ibarra LPN - 10/18/2024 2:42 PM EST Patient reports that he has had the rash for a couple of months. He stated he often works with a lot of chemicals at work. He has had similar rashes but this rash is growing in size. Reason for Disposition Mild localized rash Answer Assessment - Initial Assessment Questions 1. APPEARANCE of RASH: Describe the rash. Dry, scaley 2. LOCATION: Where is the rash located? Right hand 3. NUMBER: How many spots are there? 2 4. SIZE: How big are the spots? (Inches, centimeters or compare to size of a coin) Growing in size 5. ONSET: When did the rash start? Months ago 6. ITCHING: Does the rash itch? If Yes, ask: How bad is the itch? (Scale 0- 10; or none, mild, moderate, severe) Moderate 7. PAIN: Does the rash hurt? If Yes, ask: How bad is the pain? (Scale 0-10; or none, mild, moderate, severe) - NONE (0): No pain - MILD (1-3): Doesn't interfere with normal activities - MODERATE (4-7): Interferes with normal activities or awakens from sleep - SEVERE (8-10): Excruciating pain, unable to do any normal activities No pain 8. OTHER SYMPTOMS: Do you have any other symptoms? (e.g., fever) No 9. : Is there any chance you are ? When was your last menstrual period? N/A Protocols used: Rash or Redness - [id number] * Roxy Santos MA - 10/18/2024 2:07 PM EST Images from the original note were not included. - called patient , states he has a rash on his right hand that is not going away, has tried OTC medications. Asked patient to send a picture of his hand through [employer]. Image attached below. Does patient need to be seen ? States he uses the Fluconazole ( Diflucan ) 100 mg 3 times a day 2 weeks fora rash that he gets in the summer on his neck but this is new for the one on his right hand. RX hasnot been ordered since 2022. documented in this encounter Plan of Treatment Upcoming Encounters Date Type Department Care Team (Late st Contact Info) Description 08/08/2025 9:30 AM EST Office Visit Endocrinology - [address] [place] [phone] Amada Reynolds PA [address] [place] [address] documented as of this encounter Visit Diagnoses Not on filedocumented in this encounter Additional Health Concerns Assessment Noted Time PHQ-9 Depression Total Score: 0 07/31/20 24 8:20 AM EST documented as of this encounter Care Teams Silk Screen Printing Racker Relationship Specialty Start Date End Date Roxy Winkler MD [address] [place] [address] PCP - General Internal Medicine 11/23/17 documented as of this encounter
--- OUTSIDE RECORDS SUMMARY | 2024-11-17 10:36 | XMS_ITS | Encounter Summary ---
Author Organization [employer] Address [address] [place] [address] Care Team Providers Care Spindle Frame Carver Name Role Phone Roxy Remy MD Primary Care Prov ider Reason for Referral * Hospital - Outpatient (Routine) - Authorized Specialty Diagnoses / Procedures Referred By Linda t Referred To Contact Diagnoses Family history of colon cancer Procedures COLONOSCOPY Anesthesia - MAC; [facility] ENDOSCOPY Donell Garsia MD [address] [place] [address] Phone: tel: fax: [facility] [address] [place] [phone] Phone: tel: Referral ID Status Reason Start Date Expiration Date V isits Requested Visits Authorized [id number] Authorized 08/26/2024 08/26/2025 6 6 Reason for Visit * Hospital - Outpatient (Routine) - Authorized Specialty Diagnoses / Procedures Referred By Linda kohler Referred To Contact Diagnoses Family history of colon cancer Procedures COLONOSCOPY Anesthesia - MAC; [facility] ENDOSCOPY Donell Garsia MD [address] [address] Phone: tel: fax: [facility] [address] [place] [address] Phone: tel: Referral ID Status Reason Start Date Expiration Date V isits Requested Visits Authorized [id number] Authorized 08/26/2024 08/26/2025 6 6 Encounter Details Date Type Department Care Team (Late st Contact Info) Description 11/01/2024 7:23 AM EST - 11/01/2024 11:59 PM [facility] Hospital Encounter [facility] [address] [place] [phone] Juani Tadeo, [address] [facility] [address] [place] [address] Selina Garcias CRNA [address] [place] [address] David Gibson MD [address] [place] [id number] Family history of colon cancer Discharge Disposition: Home or Self Care Social [...] for your loved ones. For example, children's court magistrate or elderly care for an older adult? [...] Sign Reading Time Taken Comments Blood Pressure 145/90 11/01/2024 9:00 AM EST Pulse 99 11/01/2024 9:00 AM EST Temperature 35.7 ??C (96.2 ??F) 11/01/2024 7:36 AM ES T Respiratory Rate 20 11/01/2024 9:00 AM EST Oxygen Saturation 98% 11/01/2024 9:00 AM EST Inhaled Oxygen Concentration - - Weight 81.6 kg (180 lb) 11/01/2024 7:36 AM EST Height 177.8 cm (5' 10 ) 11/01/2024 7:36 AM EST Body Mass Index 25.83 11/01/2024 7:36 AM EST documented in this encounter Discharge Instructions * Attachments The following attachments cannot be sent through Care Everywhere. * Colon Polyps ([place]) documented in this encounter Medications at Time of Discharge [...] by mouth 2 (two) times a day. 11/06/2024 documented as of this encounter Discharge Disposition Disposition Code Departure Means Destination Home or Self Care documented in this encounter Progress Notes * Luisa Plummer RN - 11/01/2024 8:48 AM EST Problem: Cognitive:Periop Procedure - Minor Goal: Knowledge of disease or condition will improve Outcome: Adequate for Discharge Problem: Sensory:Periop Procedure - Minor Goal: Demonstrates/reports adequate pain control Outcome: Adequate for Discharge Pt meets criteria for d/c * Joslyn Higgins RN - 11/01/2024 7:30 AM EST Problem: Cognitive:Periop Procedure - Minor Goal: Knowledge of disease or condition will improve Outcome: Progressing Problem: Sensory:Periop Procedure - Minor Goal: Demonstrates/reports adequate pain control Outcome: Progressing PT VERBALIZED UNDERSTAND OF DC INSTRUCTIONS, FALL RISK REVIEWED, CALL [facility] AT BEDSIDE. documented in this encounter H&P Notes * Juani Tadeo DO - 11/01/2024 8:30 AM EST Pre-Op Diagnosis: [facility] Proposed Procedure: screening Performing Surgeon/MD/Endoscopist: Juani Tadeo DO Medical/History: Past Medical History: Diagnosis Date Hyperlipidemia 11/13/2012 DX:Hyperlipidemia Kidney stone Right inguinal hernia 11/02/2017 DX:Right inguinal hernia Past Surgical History: Procedure Laterality Date HERNIA REPAIR PROCEDURE: LAPAROSCOPY, INGUINAL HERNIA REPAIR KNEE SURGERY 2007 PROCEDURE: HISTORICAL KNEE SURGERY; COMMENT: 2007 lower tibia, 2022 patella VASECTOMY 2019 PROCEDURE: TX VASECTOMY UNI/BI SPX W/POSTOP SEMEN EXAMS WRIST SURGERY 2007, 2009 PROCEDURE: HISTORICAL WRIST SURGERY; COMMENT: L; WRIST SURGERY 2012 PROCEDURE: HISTORICAL WRIST SURGERY; COMMENT: Right; Tresa Medications/Allergies: Prior to Admission medications Medication Sig Start Date End Date Taking? Authorizing Provider atorvastatin (LIPITOR) 10 mg tablet TAKE 1 TABLET BY MOUTH EVERY DAY 10/30/24 Yes SUE Ribera calcium carbonate 1,500 mg (600 mg elemental calcium) tablet Take 1 tab daily 07/25/24 Yes SUE Saldana cholecalciferol (VITAMIN D-3) 50 mcg (2,000 unit) capsule Take 1 capsule (2,000 Units total) by mouth daily. 07/26/24 07/26/25 Yes Historical Provider, cyclobenzaprine (FLEXERIL) 5 mg tablet Take 1 tablet (5 mg total) by mouth 1 (one) time each day. 10/20/24 Yes SUE Salomon ibuprofen (ADVIL,MOTRIN) 600 mg tablet Take 1 tablet (600 mg total) by mouth every 6 (six) hours ifneeded (pain). 07/14/23 Yes Historical Provider, valACYclovir (VALTREX) 500 mg tablet Take 1 tablet (500 mg total) by mouth 2 (two) times a day. YesHistorical Provider, zoledronic acid (RECLAST) 5 mg/100 mL piggyback Infuse 100 mL (5 mg total) into a venous catheter 1(one) time for 1 dose. 08/08/24 08/08/24 SUE Saldana atorvastatin (LIPITOR) 10 mg tablet Take 1 tablet (10 mg total) by mouth 1 (one) time each day. 02/21/24 10/30/24 Historical Provider, Patient Age:44 y.o. Vitals: Vitals: 11/01/24 0736 BP: (!) 145/108 Pulse: 100 Resp: 22 Temp: 35.7 ??C (96.2 ??F) SpO2: 100% Physical Exam: Mental Status: Clear HEENT: WNL Heart: WNL Lungs: WNL Abdomen: WNL Extremities: WNL Neuro: WNL Labs: Imaging: Diagnosis/Plan: screening, high risk documented in this encounter Procedure Notes * Luisa Plummer RN - 11/01/2024 9:03 AM EST Pt tolerated fluids to drink and meets discharge criteria. documented in this encounter Plan of Treatment Upcoming Encounters Date Type Department Care Team (Late st Contact Info) Description 08/08/2025 9:30 AM EST Office Visit Endocrinology - [place] [address] [place] [address] Amada Reynolds PA [address] [place] [address] documented as of this encounter Procedures Procedure Name Priority Date/Time Associated Diagnosis Comments COLONOSCOPY Routine 11/01/2024 8:39 AM EST Family history of colon cancer TISSUE EXAM Routine 11/01/2024 8:34 AM EST Family history of colon cancer documented in this encounter Results * COLONOSCOPY Anesthesia - MAC; [facility]COPY (11/01/2024 8:39 AM EST) Anatomical Region Laterality Modality Endoscopy 11/01/2024 8:21 AM EST Impressions 11/01/2024 8:37 AM EST - One 6 mm polyp in the rectum, removed with a cold ? snare. Resected and retrieved. Recommendation: ?- - Discharge patient to home. ? - High fiber diet. ? - Continue present medications. ? - Await pathology results. ? - Repeat colonoscopy for surveillance based on ? pathology results. Narrative 11/01/2024 8:37 AM EST [facility] Patient Name: Jermain Pittman Procedure Date: 11/01/2024 8:21 AM Date of : 1980 Age: 44 Gender: Male Note Status: Finalized Attending MD: Juani Tadeo DO, [id number] Procedure Date No Time: 11/01/2024 Procedure: ? Colonoscopy Indications: ? Colon cancer screening in patient at increased risk: ? Colorectal cancer in mother Providers: ? Juani Tadeo DO Referring MD: ?Roxy Remy MD Medicines: ? Monitored Anesthesia Care Complications: ? No immediate complications. Estimated blood loss: ? Minimal. Estimated Blood Loss: ? Estimated blood loss was minimal. Procedure: ? Pre-Anesthesia Assessment: ? - - Prior to the procedure, a History and Physical was ? performed, and patient medications and allergies were ? reviewed. The patient is competent. The risks and ? benefits of the procedure and the sedation options and ? risks were discussed with the patient. All questions ? were answered and informed consent was obtained. ? Patient identification and proposed procedure were ? verified by the physician, the nurse, the ? anesthesiologist, the knee bolter and the sound technician supervisor ? in the pre-procedure area in the endoscopy suite. ? Mental Status Examination: alert and oriented. Airway ? Examination: normal oropharyngeal airway and neck ? mobility. Respiratory Examination: clear to ? auscultation. CV Examination: normal. Prophylactic ? Antibiotics: The patient does not require prophylactic ? antibiotics. Prior Anticoagulants: The patient has ? taken no anticoagulant or antiplatelet agents. ASA ? Grade Assessment: II - A patient with severe systemic ? disease. After reviewing the risks and benefits, the ? patient was deemed in satisfactory condition to ? undergo the procedure. The anesthesia plan was to use ? monitored anesthesia care (MAC). Immediately prior to ? administration of medications, the patient was ? re-assessed for adequacy to receive sedatives. The ? heart rate, respiratory rate, oxygen saturations, ? blood pressure, adequacy of pulmonary ventilation, and ? response to care were monitored throughout the ? procedure. The physical status of the patient was ? re-assessed after the procedure. ? After I obtained informed consent, the scope was ? passed under direct vision. Throughout the procedure, ? the patient's blood pressure, pulse, and oxygen ? saturations were monitored continuously. The Olympus ? Pediatric Colonoscope was introduced through the anus ? and advanced to the cecum, identified by appendiceal ? orifice and ileocecal valve. The colonoscopy was ? performed without difficulty. The patient tolerated ? the procedure well. The quality of the bowel ? preparation was good. Findings: ?A 6 mm polyp was found in the rectum. The polyp was ? sessile. The polyp was removed with a cold snare. ? Resection and retrieval were complete. Estimated blood ? loss was minimal. ? A few small-mouthed diverticula were found in the ? sigmoid colon and descending colon. There was no ? evidence of diverticular bleeding. ? The exam was otherwise without abnormality on direct ? and retroflexion views. Procedure Code(s): ? --- Professional --- ? 33719, Colonoscopy, flexible; with removal of ? tumor(s), polyp(s), or other lesion(s) by snare ? technique Diagnosis Code(s): ? --- Professional --- ? Z80.0, Family history of malignant neoplasm of ? digestive organs ? D12.8, Benign neoplasm of rectum CPT copyright 2020 [employer]. All rights reserved. The codes documented in this report are preliminary and upon accounting director review may be revised to meet current compliance requirements. JUANI Tadeo DO 11/01/2024 8:36:56 AM This report has been signed electronically.Juani Tadeo DO Number of Addenda: 0 Note Initiated On: 11/01/2024 8:21 AM Scope Withdrawal Time: 0 hours 6 minutes 33 seconds Scope In: 8:26:15 AM Scope Out: 8:35:44 AM ? Endoscopy Department at [facility] - [address] [place] [address], ? [place] [address] Procedure Note Juani Tadeo DO - 11/01/2024 [facility] Patient Name: Jermain Pittman Procedure Date: 11/01/2024 8:21 AM Date of : 1980 Age: 44 Gender: Male Note Status: Finalized Attending MD: Juani Tadeo DO, [id number] Procedure Date No Time: 11/01/2024 Procedure: Colonoscopy Indications: Colon cancer screening in patient at increasedrisk: Colorectal cancer in mother Providers: Juani Tadeo DO Referring MD: Roxy Remy MD Medicines: Monitored Anesthesia Care Complications: No immediate complications. Estimated blood loss: Minimal. Estimated Blood Loss: Estimated blood loss was minimal. Procedure: Pre-Anesthesia Assessment: - - Prior to the procedure, a History and Physicalwas performed, and patient medications and allergieswere reviewed. The patient is competent. The risks and benefits of the procedure and the sedation optionsand risks were discussed with the patient. Allquestions were answered and informed consent was obtained. Patient identification and proposed procedure were verified by the physician, the nurse, the anesthesiologist, the knee bolter and thetechnician in the pre-procedure area in the endoscopy suite. Mental Status Examination: alert and oriented.Airway Examination: normal oropharyngeal airway and neck mobility. Respiratory Examination: clear to auscultation. CV Examination: normal. Prophylactic Antibiotics: The patient does not requireprophylactic antibiotics. Prior Anticoagulants: The patient has taken no anticoagulant or antiplatelet agents. ASA Grade Assessment: II - A patient with severesystemic disease. After reviewing the risks and benefits,the patient was deemed in satisfactory condition to undergo the procedure. The anesthesia plan was touse monitored anesthesia care (MAC). Immediately priorto administration of medications, the patient was re-assessed for adequacy to receive sedatives. The heart rate, respiratory rate, oxygen saturations, blood pressure, adequacy of pulmonary ventilation,and response to care were monitored throughout the procedure. The physical status of the patient was re-assessed after the procedure. After I obtained informed consent, the scope was passed under direct vision. Throughout theprocedure, the patient's blood pressure, pulse, and oxygen saturations were monitored continuously. TheOlympus Pediatric Colonoscope was introduced through theanus and advanced to the cecum, identified byappendiceal orifice and ileocecal valve. The colonoscopy was performed without difficulty. The patient tolerated the procedure well. The quality of the bowel preparation was good. Findings: A 6 mm polyp was found in the rectum. The polyp was sessile. The polyp was removed with a cold snare. Resection and retrieval were complete. Estimatedblood loss was minimal. A few small-mouthed diverticula were found in the sigmoid colon and descending colon. There was no evidence of diverticular bleeding. The exam was otherwise without abnormality ondirect and retroflexion views. Procedure Code(s): --- Professional --- 04548, Colonoscopy, flexible; with removal of tumor(s), polyp(s), or other lesion(s) by snare technique Diagnosis Code(s): --- Professional --- Z80.0, Family history of malignant neoplasm of digestive organs D12.8, Benign neoplasm of rectum CPT copyright 2020 [employer]. All rights reserved. The codes documented in this report are preliminary and upon accounting director reviewmay be revised to meet current compliance requirements. JUANI Tadeo DO 11/01/2024 8:36:56 AM This report has been signed electronically.Juani Tadeo DO Number of Addenda: 0 Note Initiated On: 11/01/2024 8:21 AM Scope Withdrawal Time: 0 hours 6 minutes 33 seconds Scope In: 8:26:15 AM Scope Out: 8:35:44 AM Endoscopy Department at [facility] - [address] [place] [phone] IMPRESSION: - One 6 mm polyp in the rectum, removed with a cold snare. Resected and retrieved. Recommendation: - - Discharge patient to home. - High fiber diet. - Continue present medications. - Await pathology results. - Repeat colonoscopy for surveillance based on pathology results. Donell Garsia MD GI~PROCEDURE ORDERABLES Final Result * Tissue exam (11/01/2024 8:34 AM EST) Final Diagnosis A. Large Intestine, Rectum, polyp x1 via cold snare: - Benign rectal mucosa with a mucosal lymphoid aggregate. - Negative for dysplasia. Note: Additional deeper levels were examined. 11/03/2024 12:12 PM [facility] Gross Description A. Large Intestine, Rectum, polyp x1 via cold snare: Labeled LI rectum, U . Received in formalin, is an approximately 0.5 cm in greatest diameter soft to rubbery, medrano-pink to red tissue fragment, which is inked black at the base, wrapped in paper and submitted in toto in one cassette, one piece, multiple levels. dvb/SL 11/03/2024 12:12 PM [facility] Disclaimer Unless otherwise specified, all tissue is 10% NB formalin fixed and paraffin embedded. 11/03/2024 12:12 PM [facility] Tissue Rectum structure / Unknown 11/01/2024 8:34 AM EST 11/01/2024 10:45 AM EST us Donell Garsia MD LAB PATHOLOGY ORDERABLES Allyson elizabeth Result [facility] ([facility]) [facility] [address] [place] [address], documented in this encounter Visit Diagnoses Diagnosis Family history of colon cancer Family history of malignant neoplasm of gastrointestinal tract documented in this encounter Orders Discharge Count Last Ordered Date First Orde red Date DISCHARGE PATIENT 1 11/01/2024 documented in this encounter Additional Health Concerns Assessment Noted Time PHQ-9 Depression Total Score: 0 10/20/19 25 2:29 PM EST documented as of this encounter Care Teams Spindle Frame Carver Relationship Specialty Start Date End Date Roxy Remy MD [address] [place] [id number] PCP - General Internal Medicine 11/23/17 documented as of this encounter
--- OUTSIDE RECORDS SUMMARY | 2024-11-17 10:36 | XMS_ITS | Clinical Summary ---
Author Organization [facility] [address] [facility] [address] Address [address] [place] [address] Phone Care Team Providers Care Seed Sorter Name Role Phone Roxy Remy MD Primary Care Prov ider Allergies No known active allergies Medications ibuprofen (ADVIL,MOTRIN) 600 mg tablet Take 1 tablet (600 mg total) by mouth every 6 (six) hours if needed (pain). 07/14/20 23 Active calcium carbonate 1,500 mg (600 mg elemental calcium) tablet Take 1 tab daily 90 tablet 1 07/25/20 24 Active cholecalciferol (VITAMIN D-3) 50 mcg (2,000 unit) capsule Take 1 capsule (2,000 Units total) by mouth daily. 07/26/20 24 025 Active zoledronic acid (RECLAST) 5 mg/100 mL piggyback Infuse 100 mL (5 mg total) into a venous catheter 1 (one) time for 1 dose. 100 mL 08/08/20 24 Active cyclobenzaprine (FLEXERIL) 5 mg tablet Take 1 tablet (5 mg total) by mouth 1 (one) time each day. 30 tablet 10/20/19 25 Active atorvastatin (LIPITOR) 10 mg tabletIndicatio ns:Hyperlipidem ia, unspecified TAKE 1 TABLET BY MOUTH EVERY DAY 90 tablet 1 10/30/19 25 Active valACYclovir (VALTREX) 500 mg tablet Take 1 tablet (500 mg total) by mouth 1 (one) time each day. 90 each 1 02/ 025 Active atorvastatin (LIPITOR) 10 mg tablet Take 1 tablet (10 mg total) by mouth 1 (one) time each day. 02/21/20 24 025 Discontinued valACYclovir (VALTREX) 500 mg tablet Take 1 tablet (500 mg total) by mouth 2 (two) times a day. 025 Discontinued(Re order) cyclobenzaprine (FLEXERIL) 5 mg tablet TAKE 1 TABLET BY MOUTH DAILY FOR 25 DAYS. 30 tablet 1 08/24/20 24 025 Discontinued Active Problems Problem Noted Date Diagnosed Date Family history of colon cancer in father 024 Chronic back pain greater than 3 months duration 06/21/2024 Spontaneous pneumothorax 06/21/2024 Overview (06/21/2024): Other spontaneous pneumothorax Osteoporosis 09/01/2023 Genital herpes 05/28/2023 Snoring 09/17/2021 Overview (06/21/2024): 08/2021 Home Sleep Study did not reveal sleep apnea or nocturnal hypoxia. Kidney cyst, acquired 10/09/2019 Overview (06/21/2024): 9 x 9 x 9 mm lower pole of the right kidney with wall calcification. Dr. Marsh ultrasound on September 27, 2019 Familial hypercholesterolemia 07/28/2019 Right inguinal hernia 11/02/2017 Left knee pain 01/26/2009 Overview (06/21/2024): Complex lateral tibial plateua fracture 11/2007. Followed by Dr. Rivas at [facility] Other chest pain 09/23/2005 Encounters Date Type Department Care Team Description 11/07/2024 Telephone Adult Medicine - [place] [address] [place] [address] Roxy Townsend MD Referral (Left Knee Pain) 11/06/2024 1:51 PM EST - 11/06/2024 11:59 PM EST Hospital Encounter Ultrasound - [facility] [address] [place] [phone] Kidney stone Discharge Disposition: Home or Self Care 11/06/2024 8:45 AM EST Office Visit Adult [facility] [address] [place] [address] Roxy Townsend MD Familial hypercholesterolemia (Primary Dx); Osteoporosis, unspecified osteoporosis type, unspecified pathological fracture presence; Kidney stone; Family history of colon cancer in father; Psoriasis 11/01/2024 8:21 AM EST Anesthesia Event [facility] Endoscopy [address] [place] [phone] David Gibson MD 11/01/2024 7:23 AM EST - 11/01/2024 11:59 PM EST Hospital Encounter [facility] Endoscopy [address] [place] [phone] Juani Tadeo DO McAdams, Megan, CRNA Spencer, Mark A, MD Family history of colon cancer Discharge Disposition: Home or Self Care 10/17/2024 Nurse Triage Adult [facility] [address] [place] [address] Jermain Mtz PA Med Refill; Rash 08/24/2024 Telephone Gastroenterology - [address] [facility] [address] [phone] Donell Garsia MD 08/18/2024 Telephone Endocrinology - [address] [address] Rosa M Rodrigues [place] Medication Problem (Patient is calling to follow up on Reclast infusion) from Last 3 Months Immunizations Name Administration Dates Next Due Influenza Quadravalent, MDCK , 0.5ml, preservative free (Flucelvax) 6mo and older 07/28/2019 Influenza trivalent, 0.5mL, preservative free (Fluarix; FluLaval; Fluzone) ages 6mo and older (Afluria) 3 years and older 06/03/2015 Influenza trivalent, with pr eservative (Fluzone; Afluria) 6mo and older 06/22/2013 Tdap Tetanus diptheria acell ular pertussis (Boostrix; Adacel) 7yo and older 07/29/2023,02/21/2013 Surgical History Surgery Date Site/Laterality Comments WRIST SURGERY 2007, 2009 PROCEDURE: HISTORICAL WRIST SURGERY; COMMENT: L; KNEE SURGERY 2007 PROCEDURE: HISTORICAL KNEE SURGERY; COMMENT: 2007 lower tibia, 2022 patella WRIST SURGERY 2012 PROCEDURE: HISTORICAL WRIST SURGERY; COMMENT: Right; Tresa HERNIA REPAIR PROCEDURE: LAPAROSCOPY, INGUINAL HERNIA REPAIR VASECTOMY 2019 PROCEDURE: WY VASECTOMY UNI/BI SPX W/POSTOP SEMEN EXAMS Medical History Medical History Date Comments Hyperlipidemia 11/13/2012 DX:Hyperlipidemi a Right inguinal hernia 11/02/2017 DX:Right i nguinal hernia Kidney stone Family History Medical History Relation Name Comments No Known Problems Daughter Blindness Father Colon cancer Father Glaucoma Father Hyperlipidemia Father Hypertension Father No Known Problems Maternal Grandfather No Known Problems Maternal Grandmother Diabetes Mother Other: kidney disease Mother Thyroid disease Mother Hyperlipidemia Paternal Grandfather Dementia Paternal Grandmother Hyperlipidemia Paternal Grandmother Osteoporosis Paternal Grandmother Diabetes Sister 1 Thyroid disease Sister 2 No Known Problems Sister 3 Relation Name Status Comments Daughter Alive Father Alive Maternal Grandfather Maternal Grandmother Mother Alive Paternal Grandfather Paternal Grandmother Alive Sister 1 Alive Sister 2 Alive Sister 3 Alive Social History Tobacco Use Types Packs/Day Years [...] care for your loved ones. For example, childrens club attendant or elderly care for an older adult? [...] Orientation Straight 10/27/2024 9: 38 AM EST Obstetrics History Last Filed Vital Signs Vital Sign Reading Time Taken Comments Blood Pressure 128/75 11/06/2024 8:55 AM EST Pulse 102 11/06/2024 8:55 AM EST Temperature 36.8 ??C (98.2 ??F) 11/06/2024 8:55 AM EST Respiratory Rate 20 11/01/2024 9:00 AM EST Oxygen Saturation 98% 11/01/2024 9:00 AM EST Inhaled Oxygen Concentration - - Weight 83.4 kg (183 lb 12.8 oz) 11/06/2024 8:55 AM EST Height 177.8 cm (5' 10 ) 11/01/2024 7:36 AM EST Body Mass Index 26.37 11/01/2024 7:36 AM EST Plan of Treatment Upcoming Encounters Date Type Department Care Team (Late st Contact Info) Description 08/08/2025 9:30 AM EST Office Visit Endocrinology - [place] [address] [place] [address] Amada Reynolds PA [address] [place] [address] Health Maintenance Due Date Last Done Comments Social Influencers of Health Screening 07/31/2025 07/31/2024 Depression Screening 10/20/2025 10/20/2024, 07/31/20 24 Cholesterol Screening (Lipid Panel) 07/31/2029 07/31/2024, 07/29/2023 DTaP,Tdap,and Td Vaccines (3 - Td or Tdap) 07/29/2033 07/29/2023, 02/21/2013 Influenza Vaccine Discontinued 07/28/2019, , 06/03/2015, Additional history exists Hepatitis C Screening Completed 07/31/2024 COVID-19 Vaccine Discontinued HIB Vaccines Aged Out No longer eligi ble based on patient's age to complete this topic HIV Screening Discontinued HPV Vaccines Aged Out No longer eligi ble based on patient's age to complete this topic Hepatitis A Vaccines Aged Out No long er eligible based on patient's age to complete this topic Hepatitis B Vaccines Discontinued IPV Vaccines Aged Out No longer eligi ble based on patient's age to complete this topic MMR Vaccines Aged Out No longer eligi ble based on patient's age to complete this topic Meningococcal ACWY Vaccine Aged Out N o longer eligible based on patient's age to complete this topic Meningococcal B Vacine Aged Out No lo nger eligible based on patient's age to complete this topic Pneumococcal Vaccine: Pediatrics (0 to 5 Years) and At-Risk Patients (6 to 64 Years) Aged Out No longer eligible based on patient's age to complete this topic RSV Immunization Patients Under 20 months Aged Out No longer eligible based on patient's age to complete this topic Varicella Vaccines Aged Out No longer eligible based on patient's age to complete this topic Procedures Procedure Name Priority Date/Time Associated Diagnosis Comments US RETROPERITONEAL COMPLETE Routine 11/06/2024 2:21 PM EST Kidney stone COLONOSCOPY Routine 11/01/2024 8:39 AM EST Family history of colon cancer TISSUE EXAM Routine 11/01/2024 8:34 AM EST Family history of colon cancer HEPATITIS C ANTIBODY Routine 07/31/2024 9:58 AM EST Need for hepatitis C screening test LIPID PANEL WITH REFLEX TO DIRECT LDL Routine 07/31/2024 9:58 AM EST Familial hypercholesterolemia from Last 3 Months or Most Recently Relevant to Health Maintenance Results * US Retroperitoneal Complete (11/06/2024 2:21 [...] Signed Date: 11/06/2024 14:52 ET Workstation ID: [id number] Transcribed By: Self Edit Transcribed Date: 11/06/2024 [...] Signed Date: 11/06/2024 14:52 ET Workstation ID: [id number] Transcribed By: Self Edit Transcribed Date: 11/06/2024 14:50 ET Roxy Remy MD [facility] PROCEDURES Final Result * COLONOSCOPY Anesthesia - MAC; [facility] ENDOSCOPY (11/01/2024 8:39 AM EST) Anatomical Region [...] pathology results. Narrative 11/01/2024 8:37 AM EST [facility] GI Patient Name: Jermain Pittman Procedure Date: 11/01/2024 8:21 AM Date of : 1980 Age: 44 Gender: Male Note Status: Finalized Attending MD: Juani Tadeo DO, [id number] Procedure Date No Time: 11/01/2024 Procedure: ? [...] physician, the nurse, the ? anesthesiologist, the piece dye worker and the ear mold laboratory technician ? in the pre-procedure area in the [...] Procedure Code(s): ? --- Professional --- ? 76951, Colonoscopy, flexible; with removal of ? tumor(s), polyp(s), or other lesion(s) by snare ? technique Diagnosis Code(s): ? --- Professional --- ? Z80.0, Family history of malignant neoplasm of ? digestive organs ? D12.8, Benign neoplasm of rectum CPT copyright 2020 [employer]. All rights reserved. The codes documented in this report are preliminary and upon death surveys coder review may be revised to meet current compliance requirements. JUANI Tadeo DO 11/01/2024 8:36:56 AM This report has been signed electronically.Juani Tadeo DO Number of Addenda: 0 Note Initiated On: 11/01/2024 8:21 AM Scope Withdrawal Time: 0 hours 6 minutes 33 seconds Scope In: 8:26:15 AM Scope Out: 8:35:44 AM ? Endoscopy Department at [facility] - [address] [place] [address], ? [place] [address] Procedure Note Juani Tadeo DO - 11/01/2024 [facility] GI Patient Name: Jermain Pittman Procedure Date: 11/01/2024 8:21 AM Date of : 1980 Age: 44 Gender: Male Note Status: Finalized Attending MD: Juani Tadeo DO, [id number] Procedure Date No Time: 11/01/2024 Procedure: Colonoscopy [...] the physician, the nurse, the anesthesiologist, the piece dye worker and thetechnician in the pre-procedure area in [...] retroflexion views. Procedure Code(s): --- Professional --- 51212, Colonoscopy, flexible; with removal of tumor(s), polyp(s), or other lesion(s) by snare technique Diagnosis Code(s): --- Professional --- Z80.0, Family history of malignant neoplasm of digestive organs D12.8, Benign neoplasm of rectum CPT copyright 2020 [employer]. All rights reserved. The codes documented in this report are preliminary and upon death surveys coder reviewmay be revised to meet current compliance requirements. JUANI Tadeo DO 11/01/2024 8:36:56 AM This report has been signed electronically.Juani Tadeo DO Number of Addenda: 0 Note Initiated On: 11/01/2024 8:21 AM Scope Withdrawal Time: 0 hours 6 minutes 33 seconds Scope In: 8:26:15 AM Scope Out: 8:35:44 AM Endoscopy Department at [facility] - [address] [place] [phone] IMPRESSION: - One 6 mm polyp in the rectum, removed with a cold snare. Resected and retrieved. Recommendation: - - Discharge patient to home. - High fiber diet. - Continue present medications. - Await pathology results. - Repeat colonoscopy for surveillance based on pathology results. us Donell Garsia MD GI~PROCEDURE ORDERABLES Final Result * Tissue exam (11/01/2024 8:34 AM EST) Final Diagnosis A. Large Intestine, Rectum, polyp x1 via cold snare: - Benign rectal mucosa with a mucosal lymphoid aggregate. - Negative for dysplasia. Note: Additional deeper levels were examined. 11/03/2024 12:[address] [facility] Gross Description A. Large Intestine, Rectum, polyp x1 via cold snare: Labeled LI rectum, U . Received in formalin, is an approximately 0.5 cm in greatest diameter soft to rubbery, medrano-pink to red tissue fragment, which is inked black at the base, wrapped in paper and submitted in toto in one cassette, one piece, multiple levels. dvb/SL 11/03/2024 12:[address] [facility] Disclaimer Unless otherwise specified, all tissue is 10% NB formalin fixed and paraffin embedded. 11/03/2024 12:[address] [facility] Tissue Rectum structure / Unknown 11/01/2024 8:34 AM EST 11/01/2024 10:45 AM EST us Donell Garsia MD LAB PATHOLOGY ORDERABLES Allyson clara Result [facility] [address] [place] [address], [place] [phone] * Hepatitis C antibody (07/31/2024 9:58 AM EST) [facility] Hepatitis C Antibody Negative Negative LAB CHEMISTRY METHOD 07/31/2024 12:[address] [facility] Blood Venous blood specimen / Unknown Venipuncture / Unknown 07/31/2024 9:58 AM EST 07/31/2024 9:58 AM EST Jermain ROGERS LAB BLOOD ORDERABLES Final Res ult Performing Organization Address [facility]/ZIP Co de Phone Number [facility] [address] [place] [address], [place] [phone] * (ABNORMAL) Lipid panel with reflex to direct LDL (07/31/2024 9:58 AM EST) [facility] Cholesterol 245(H) 0 - 200 mg/dL LAB CHEMISTRY METHOD 07/31/2024 12:[address] [facility] Triglycerides 207(H) 0 - 150 mg/dL LAB CHEMISTRY METHOD 07/31/2024 12:[address] [facility] HDL 47 >=40 mg/dL LAB CHEMISTRY METHOD 07/31/2024 12:[address] [facility] LDL Calculated 157(H) 0 - 100 mg/dL LAB CHEMISTRY METHOD 07/31/2024 12:[address] [facility] VLDL Cholesterol Carlyle 41.4 mg/dL LAB CHEMISTRY METHOD 07/31/2024 12:[address] [facility] Non HDL Chol. (LDL+VLDL) 198(H) <145 mg/dL LAB CHEMISTRY METHOD 07/31/2024 12:[address] [facility] Chol/HDL Ratio 5.2(H) 0.0 - 4.4 LAB CHEMISTRY METHOD 07/31/2024 12:05 PM EST [facility] Blood Venous blood specimen / Unknown Venipuncture / Unknown 07/31/2024 9:58 AM EST 07/31/2024 9:58 AM EST Jermain ROGERS LAB BLOOD ORDERABLES Final Res ult [facility] [address] [place] [address], from Last 3 Months or Most Recently Relevant to Health Maintenance Insurance [facility] Care Teams Seed Sorter Relationship Specialty Start Date End Date Roxy Remy MD [address] [place] [phone] PCP - General Internal Medicine 11/23/17
--- OUTSIDE RECORDS SUMMARY | 2024-11-17 10:37 | XMS_ITS | Clinical Summary ---
Author Organization [facility] Address [address] [place] [address] Phone Care Team Providers Care Bee Keeper Name Role Phone Cathi GONZALEZ, Roxy Primary Care Prov ider [phone] [facility] Un[facility] [phone] Reason for Visit and Chief Complaint [Patient Encounter] Plan of Treatment No Plan of Treatment Recorded Assessments Includes: Assessments from this encounter No Assessments Recorded Medical Equipment - Implanted Devices Includes: Current Devices No Medical Equipment Recorded Medications Includes: Medications discussed during this encounter and other current Medications Current Medications (continue as prescribed) Ibuprofen 600 MG Oral Tablet 02/26/2022 Provider: Diagnosis: Last Documented On 2 9:51AM By Lucian Rosen ; [facility] Atorvastatin Calcium 10 MG Oral Tablet 01/15/2022 Pr ovider: Diagnosis: Last Documented On 2 12:34PM By Mindi Nuno ; [facility] Medications Administered Includes: Administered Medications from this encounter No Administered Medications Recorded Results Includes: Results discussed during this encounter [...] Exam Includes: Physical Exam from this encounter No Physical Exam Recorded Allergies Includes: Active Allergies No Known Allergies Encounters Encounter Provider Location Date Check-In Time Check-Out Time Diagnosis [Patient Encounter] Brandan Elkins PA-C 01/15/2022 12:33PM 11:59PM Insurance Includes: Active Insurance Policies Plan Name Member ID Group # Subscriber Relationship Effect oleg Dates 1 - [facility] Plan [id number] Jermain Pittman II Self Clinical Notes Includes: Clinical Notes from this encounter No Clinical Notes Recorded
--- OUTSIDE RECORDS SUMMARY | 2024-11-17 10:37 | XMS_ITS ---
Care Plan - [facility] Created on: November 17, 2024 Jermain Pittman II : 1980 Sex: Male Author Organization [facility] Address [address] [place] [address] Phone Care Team Providers Care Adhesive Bandage Making Operator Name Role Phone Cathi GONZALEZ, Roxy Primary Care Prov ider [phone] [facility] Unavailable [phone]
--- OUTSIDE RECORDS SUMMARY | 2024-11-17 10:37 | XMS_ITS | Clinical Summary ---
Author Organization [facility] Address [address] [place] [address] Phone Care Team Providers Care Peanut Grader Name Role Phone Cathi GONZALEZ, Roxy Primary Care Prov ider [phone] [facility] [phone] Reason for Visit and Chief Complaint Post Op Visit/Follow Up Plan of Treatment Pending Tests Order Diagnosis Results Due Ordering P kourtneyder Follow Up - Appointment PRN Displ tr ansverse fx l patella, subs for clos fx w routn heal 03/26/22 Jeff Rahman MD Last Documented On 2 9:28AM ; [facility] Assessments Includes: Assessments from this encounter No Assessments Recorded Medical Equipment - Implanted Devices Includes: Current Devices No Medical Equipment Recorded Medications Includes: Medications discussed during this encounter and other current Medications Current Medications (continue as prescribed) Ibuprofen 600 MG Oral Tablet 02/26/2022 Provider: Diagnosis: Last Documented On 2 9:51AM By Lucian Rosen ; [facility] Atorvastatin Calcium 10 MG Oral Tablet 01/15/2022 Pr ovider: Diagnosis: Last Documented On 2 12:34PM By Mindi Nuno ; [facility] Medications Administered Includes: Administered Medications from this encounter No Administered Medications Recorded Vital Signs Includes: Vital Signs from this encounter Vital Name 03/26/2022 09:14A Blood Pressure Sitting (mmHg) 134/88 Pulse Rate-Sitting (bpm) 97 Temp-Temporal 97.3 Height (in) 70 Weight (lb) 160 Body Mass Index (kg/m2) 23.0 Body Surface Area (m2) 1.9 Oxygen Saturation (%) 99 Last Documented: On 03/26/2022 9:15AM ; [facility] Results Includes: Results discussed during this encounter [...] Up Jeff Rahman MD [facility] 03/26/20 22 9:06AM 9:34AM Insurance Includes: Active Insurance Policies Plan Name Member ID Group # Subscriber Relationship Effect oleg Dates 1 - [facility] [employer] Plan [id number] Jermain Pittman II Self Clinical Notes Includes: Clinical Notes from this encounter No Clinical Notes Recorded
--- OUTSIDE RECORDS SUMMARY | 2024-11-17 10:37 | XMS_ITS | Clinical Summary ---
Author Organization [place] [facility] Address [address] [place] [address] Phone Care Team Providers Care Pricing Analyst Name Role Phone Cathi GONZALEZ, Roxy Primary Care Prov ider [phone] [facility] Un[facility] [phone] Reason for Visit and Chief Complaint Post Op Visit/Follow Up Plan of Treatment Pending Tests Order Diagnosis Results Due Ordering P mario Follow Up - Appointment 2 Weeks Displace d transverse fracture of left patella, init 01/29/22 Jeff Rahman MD Last Documented On 9:54AM ; [facility][note 3] Assessments Includes: Assessments from this encounter No Assessments Recorded Medical Equipment - Implanted Devices Includes: Current Devices No Medical Equipment Recorded Medications Includes: Medications discussed during this encounter and other current Medications Current Medications (continue as prescribed) Ibuprofen 600 MG Oral Tablet 02/26/2022 Provider: Diagnosis: Last Documented On 2 9:51AM By Lucian Rosen ; [facility][note 3] Atorvastatin Calcium 10 MG Oral Tablet 01/15/2022 Pr ovider: Diagnosis: Last Documented On 12:34PM By Mindi Nuno ; [facility][note 3] Medications Administered Includes: Administered Medications from this encounter No Administered Medications Recorded Vital Signs Includes: Vital Signs from this encounter Vital Name 01/29/2022 09:51A Pulse Rate-Sitting (bpm) 90 Temp-Oral (F) 98.4 Height (in) 70 Weight (lb) 165 Body Mass Index (kg/m2) 23.7 Body Surface Area (m2) 1.9 Oxygen Saturation (%) 98 Last Documented: On 01/29/2022 9:51AM ; [facility] Results Includes: Results discussed during this encounter [...] Rahman MD [facility] 01/30/20 22 9:40AM 10:02AM Insurance Includes: Active Insurance Policies Plan Name Member ID Group # Subscriber Relationship Effect oleg Dates 1 - [facility] [id number] Jermain Pittman II Self Clinical Notes Includes: Clinical Notes from this encounter No Clinical Notes Recorded
--- OUTSIDE RECORDS SUMMARY | 2024-11-17 10:37 | XMS_ITS ---
Author Organization [facility] Address [address] [place] [address] Phone Care Team Providers Care Asphalt Raker Name Role Phone Cathi GONZALEZ, Roxy Primary Care Prov ider [phone] [facility] Un[facility] [phone] Plan of Treatment No Plan of Treatment Recorded Assessments Includes: Assessments for all patient encounters No Assessments Recorded Medical Equipment - Implanted Devices Includes: Current and historical Devices No Medical Equipment Recorded Medications Includes: Current and historical Medications Current Medications (continue as prescribed) Ibuprofen 600 MG Oral Tablet 02/26/2022 Provider: Diagnosis: Last Documented On 2 9:51AM By Lucian Rosen ; [facility] Atorvastatin Calcium 10 MG Oral Tablet 01/15/2022 Pr ovider: Diagnosis: Last Documented On 2 12:34PM By Mindi Nuno ; [facility] Medications Administered Includes: Administered Medications in patient's chart No Administered Medications Recorded Results Includes: Results from 11/17/2023 through 11/17/2024 No Results Recorded For Specified Dates History of Present Illness History of Present Illness not supported for this document type No History of Present Illness Recorded Social History No Social History Recorded - Smoking Status Unknown Medical History Includes: Medical History in patient's chart No Medical History Recorded Family History Includes: Family History in patient's chart No Family History Recorded Review of Systems Review of Systems not supported for this document type No Review of Systems Recorded Mental Status No Mental Status Recorded Functional Status No Functional Status Recorded Physical Exam Physical Exam not supported for this document type No Physical Exam Recorded Allergies Includes: Active, inactive, and resolved Allergies No Known Allergies Insurance Includes: Active Insurance Policies Plan Name Member ID Group # Subscriber Relationship Effect oleg Dates 1 - [facility] Plan [id number] Jermain Pittman II Self Clinical Notes Includes: Signed Clinical Notes starting from 08/30/2022 No Clinical Notes Recorded
== END 2024-11-17 10:12 | disposition home or self-care (01) ==
PROVIDERS: PCP Internal Medicine; Visit Provider Physician Assistant
DX: T84.84XA Pain due to internal orthopedic prosthetic devices, implants and grafts, initial encounter (principal); Z96.9 Presence of functional implant, unspecified
CPT/HCPCS: 99213

== ENCOUNTER → 2024-11-17 09:47 | Outpatient (BNV) | payer BC, SELFPAY | PROVIDERS: Visit Provider Radiology Diagnostic Radiology | DX: M25.562 Pain in left knee (principal) | CPT/HCPCS: 73562 ==

== ENCOUNTER 2025-05-24 14:48 | Outpatient (AMB) | payer OTHER, SELFPAY ==
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
[2025-05-24 14:51] VITALS: BP 141/84; PULSE 93; O2SAT 97; BMI 25.7
--- OUTSIDE RECORDS SUMMARY | 2025-05-24 16:01 | XMS_ITS | Encounter Summary ---
Author Organization [employer] [facility] Address [address] [place] [address] Care Team Providers Care Cranberry Grower Name Role Phone Roxy Winkler MD Primary Care Prov ider Reason for Visit * Reason Onset Date Comments Med Refill Rash 10/17/2024 Encounter Details Date Type Department Care Team (Late st Contact Info) Description 10/17/2024 Nurse Triage Adult Medicine [facility] [address] [place] [address] Jermain Mtz PA [address] [place] [address] Social History Tobacco Use Types Packs/Day Years [...] for your loved ones. For example, child psychology teacher or elderly care for an older adult? [...] N/A Protocols used: Rash or Redness - [id number] * Roxy Santos MA - 10/18/2024 2:07 PM EST Images from the original note were not included. - called patient , states he has a rash on his right hand that is not going away, has tried OTC medications. Asked patient to send a picture of his hand through [employer]. Image attached below. Does patient need to [...] Care Team (Late st Contact Info) Description 07/24/2025 2:30 PM EST Office Visit Adult Medicine [address] [place] [address] Jermain Mtz PA [address] [place], [place] 08/08/2025 9:30 AM EST Office Visit Endocrinology - [address] [phone] Amada Reynolds PA [address] [place] [address] documented as of this encounter Visit Diagnoses Not on filedocumented in this encounter Additional Health Concerns Assessment Noted Time PHQ-9 Depression Total Score: 0 07/31/20 24 8:20 AM EST documented as of this encounter Care Teams Cranberry Grower Relationship Specialty Start Date End Date Roxy Winkler MD [address] [place], [place] PCP - General Internal Medicine 11/23/17 documented as of this encounter
--- OUTSIDE RECORDS SUMMARY | 2025-05-24 16:01 | XMS_ITS | Encounter Summary ---
Author Organization [facility] Address [address] [place] [address] [place] [phone] Phone Care Team Providers Care Layer Up Name Role Phone Roxy Winkler MD Primary Care Pr ovider Encounter Details Date Type Department Care Team (Late st Contact Info) Description 07/18/2024 Ancillary Orders [facility] Endocrine, Diabetes, and Hypertension [address] [address] Xenia Samano NP [address] [place] [address] Low bone density for age (Primary Dx); Vitamin D deficiency, unspecified; Scoliosis, unspecified scoliosis type, unspecified spinal region Social History Tobacco Use Types Packs/Day Years Used Date Smoking Tobacco: Never Assessed Education Answer Date Recorded Are you interested in more education? Not on nany e 10/13/2023 Are you concerned about learning? Not on file 10/13/2023 No 10/13/2023 No 10/13/2023 Digital Access Answer Date Recorded No 10/13/2023 No 10/13/2023 Reliable internet access at home? Not on file 10/13/2023 Device with a working camera? Not on file Sex and Gender Information Value Date Recorded Sex Assigned at Male 09/30/2023 12:15 PM EST Legal Sex Male 9:20 PM EDT Gender Identity Male 09/30/2023 12:15 PM EST Sexual Orientation Straight 09/30/2023 12 :15 PM EST documented as of this encounter Plan of Treatment Upcoming Encounters Date Type Department Care Team (Late st Contact Info) Description 07/30/2025 11:00 AM EST Appointment [facility] Skeletal Health/Osteoporosis Ctr. and Bone Density Unit [address] [place] [address] Xenia Samano NP [address] [place] [address] 07/30/2025 11:30 AM EST Office Visit [facility] Endocrine, Diabetes, and Hypertension [address] [facility] [address] Floor [place], [place] [phone] Xenia Samano NP [address] [place] [address] [email or web address] documented as of this encounter Results * XR SCOLIOSIS STUDY SUPINE AND ERECT 2 - 3 VIEWS (07/18/2024 12:07 PM EDT) Anatomical Region Laterality Modality C-spine, T-spine, L-spine Comput ed Radiography 07/18/2024 1:05 PM EDT Impressions 07/18/2024 1:08 PM EDT Negative sagittal balance. Neutral coronal balance. Narrative 07/18/2024 1:08 PM EDT XR SCOLIOSIS STUDY 2 - 3 VIEWS Referring clinician's provided indication for this examination in Epic: Pain; Scoliosis COMPARISON: None FINDINGS: Vertebral body heights are normal. Mild multilevel intervertebral disc height loss, greatest at L4-L5 and L5-S1. Hernia mesh clips project over the right hemipelvis. Mild bilateral hip osteoarthritis. Status post ORIF of the distal radius. Sagittal alignment: 2 mm retrolisthesis of C3 on C4. 1 mm anterolisthesis of C5 on C6. Negative sagittal balance measuring 3.9 cm. Coronal alignment: Mild apex dextroscoliosis of the thoracic spine. Mild apex levoscoliosis of the lumbar spine. Neutral coronal balance. Procedure Note Den Read MD, MS - 07/18/2024 XR SCOLIOSIS STUDY 2 - 3 VIEWS Referring clinician's provided indication for this examination in Epic:Pain; Scoliosis COMPARISON: None FINDINGS: Vertebral body heights are normal. Mild multilevel intervertebral discheight loss, greatest at L4-L5 and L5-S1. Hernia mesh clips project over the right hemipelvis. Mild bilateral hiposteoarthritis. Status post ORIF of the distal radius. Sagittal alignment: 2 mm retrolisthesis of C3 on C4. 1 mm anterolisthesisof C5 on C6. Negative sagittal balance measuring 3.9 cm. Coronal alignment: Mild apex dextroscoliosis of the thoracic spine. Mildapex levoscoliosis of the lumbar spine. Neutral coronal balance. IMPRESSION: Negative sagittal balance. Neutral coronal balance. Xenia Samano IT AUDITOR IMG XR SPINE Final Resu lt documented in this encounter Visit Diagnoses Diagnosis Low bone density for age Scoliosis, unspecified scoliosis type, unspecified spinal region Low bone density for age- Primary Vitamin D deficiency, unspecified Scoliosis, unspecified scoliosis type, unspecified spinal region documented in this encounter Care Teams Layer Up Relationship Specialty Start Date End Date Roxy Winkler MD [address] [place] [id number] PCP - General Internal Medicine 09/24/23 documented as of this encounter Additional Source Comments The information contained in this document represents components of the legal health record. It is not the complete legal health record.[facility]
--- OUTSIDE RECORDS SUMMARY | 2025-05-24 16:01 | XMS_ITS | Clinical Summary ---
Author Organization [facility] Address [address] [address] Phone Care Team Providers Care Longwall Foreman Name Role Phone Roxy Winkler MD Primary Care Pr ovider Allergies No known active allergies Medications cholecalciferol (VITAMIN D3) 2,000 unit capsule Take 1 capsule (2,000 Units total) by mouth daily. 90 capsule 3 07/26/2024 Active Social History Tobacco Use Types Packs/Day Years [...] Orientation Straight 09/30/2023 12 :15 PM EST Last Filed Vital Signs Vital Sign Reading Time Taken Comments Blood Pressure 145/96 07/18/2024 10:13 AM EDT Pulse 86 07/18/2024 10:13 AM EDT Temperature - - Respiratory Rate - - Oxygen Saturation 98% 07/18/2024 10:13 AM EDT Inhaled Oxygen Concentration - - Weight 79.2 kg (174 lb 9.6 oz) 07/18/2024 10:13 AM EDT Height 172.7 cm (5' 8 ) 07/18/2024 10:13 AM EDT Body Mass Index 26.55 07/18/2024 10:13 AM EDT Plan of Treatment Upcoming Encounters Date Type Department Care Team (Late st Contact Info) Description 07/30/2025 11:00 AM EST Appointment [facility] Skeletal Health/Osteoporosis Ctr. and Bone Density Unit [address] [place] [address] Xenia Samano NP [address] [place] [address] 07/30/2025 11:30 AM EST Office Visit [facility] Endocrine, Diabetes, and Hypertension [address] [facility] [address] [place] [address] Xenia Samano NP [address] [place] [address] Health Maintenance Due Date Last Done Comments SMOKING Hx and SMOKELESS TOBACCO SCREENING 1994 HEPATITIS C SCREENING 1999 HIV ONE-TIME SCREENING (18-6 5 YEARS) 1999 INFLUENZA VACCINE (#1) 2025 9, 06/03/2015, 06/22/2013 COVID-19 VACCINE ( - 2023-2 5 season) 2025 DEPRESSION SCREENING 07/12/2025 07/12/2024 SCREENING FOR DIABETES 07/18/2027 07/18/2024 LIPID PANEL 07/29/2028 07/29/2023 Adult Td,Tdap Booster 07/29/2033 07/29/2023 , 02/21/2013 HEPATITIS A VACCINES Aged Out No long er eligible based on patient's age to complete this topic HIB VACCINES Aged Out No longer eligi ble based on patient's age to complete this topic MENINGOCOCCAL VACCINES (ACWY) Aged Out No longer eligible based on patient's age to complete this topic MENINGOCOCCAL VACCINES (B) Aged Out N o longer eligible based on patient's age to complete this topic PNEUMOCOCCAL VACCINES (0-49 years) Aged Out No longer eligible b ased on patient's age to complete this topic Medical Devices Not on [place] [address] [place] [address] Care Teams Longwall Foreman Relationship Specialty Start Date End Date Roxy Winkler MD [address] [place] [id number] PCP - General Internal Medicine 09/24/23 Additional Source Comments The information contained in this document represents components of the legal health record. It is not the complete legal health record.[facility]
--- OUTSIDE RECORDS SUMMARY | 2025-05-24 16:01 | XMS_ITS | Clinical Summary ---
Author Organization [facility] [address] [facility] [address] Address [address] [place] [address] Phone Care Team Providers Care Ticket Printer And Tagger Name Role Phone Roxy Winkler MD Primary Care Prov ider Allergies No known active allergies Medications ibuprofen (ADVIL,MOTRIN) 600 mg tablet Take 1 tablet (600 mg total) by mouth every 6 (six) hours if needed (pain). 07/14/2023 Active valACYclovir (VALTREX) 500 mg tablet Take 1 tablet (500 mg total) by mouth 1 (one) time each day. 90 each 1 11/06/2024 Active alendronate (FOSAMAX) 70 mg tablet Take 1 tablet (70 mg total) by mouth every 7 (seven) days. 1 tablet weekly on an empty stomach, remain upright for at least 30 minutes 4 each 11 12/15/2024 12/16/19 26 Active cyclobenzaprine (FLEXERIL) 5 mg tablet Take 1 tablet (5 mg total) by mouth 1 (one) time each day. 90 tablet 1 04/20/2025 Active atorvastatin (LIPITOR) 10 mg tabletIndication s:Hyperlipidemia , unspecified Take 1 tablet (10 mg total) by mouth 1 (one) time each day. 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 Followed by Dr. Rivas at [facility] Other chest pain 09/23/2005 Encounters Date Type Department Care Team Description 04/27/2025 Nurse Triage Endocrinology [address] [phone] Amada Reynolds PA 04/20/2025 4:00 PM EDT Office Visit Adult Medicine [address] [phone] Jermain Mtz PA Adult general medical examination (Primary Dx); Familial hypercholesterolemia; Kidney cyst, acquired; Chronic back pain greater than 3 months duration; Family history of colon cancer in father; Osteoporosis, unspecified osteoporosis type, unspecified pathological fracture presence; Screening, anemia, deficiency, iron; Screening for cardiovascular condition; Testicular abnormality; Hyperlipidemia, unspecified from Last 3 Months Immunizations Name Administration [...] LAPAROSCOPY, INGUINAL HERNIA REPAIR VASECTOMY 2019 PROCEDURE: NC VASECTOMY UNI/BI SPX W/POSTOP SEMEN EXAMS HAND SURGERY 09/20/2023 - 10/20/2023 Right fracture-temporary pin Medical History Medical History Date Comments Hyperlipidemia 11/13/2012 DX:Hyperlipidemi a Right inguinal hernia 11/02/2017 DX:Right i nguinal hernia Kidney stone Family History Medical History Relation Name Comments No Known Problems Daughter Blindness Father Jermain Pittman Colon cancer Father Jermain Pittman Glaucoma Father Jermain Pittman Hyperlipidemia Father Jermain Pittman Hypertension Father Jermain Pittman No Known Problems Maternal Grandfather No Known Problems Maternal Grandmother Diabetes Mother Navya Pittman Other: kidney disease Mother Navya Pittman Thyroid disease Mother Navya Pittman Hyperlipidemia Paternal Grandfather Nicholas Pittman Dementia Paternal Grandmother Olivia Pittman Hyperlipidemia Paternal Grandmother Olivia Pittman Osteoporosis Paternal Grandmother Olivia Zain Diabetes Sister 1 Indianarhonda Pittman Thyroid disease Sister 2 No Known Problems Sister 3 Relation Name Status Comments Daughter Alive Father Jermain Pittman Alive Maternal Grandfather Maternal Grandmother Mother Navya Pittman Alive Paternal Grandfather Nicholas Pittman Paternal Grandmother Olivia Pittman Alive Sister 1 Indianarhonda Pittman Alive Sister 2 Alive Sister 3 Alive [...] Sign Reading Time Taken Comments Blood Pressure 128/92 04/20/2025 4:25 PM EDT Pulse 98 04/20/2025 4:01 PM EDT Temperature 36.1 C (97 F) 04/20/2025 4:01 PM EDT Respiratory Rate 16 04/20/2025 4:01 PM EDT Oxygen Saturation 98% 11/01/2024 9:00 AM EST Inhaled Oxygen Concentration - - Weight 83.4 kg (183 lb 13.8 oz) 04/20/2025 4:25 PM EDT Height 179 cm (5' 10.47 ) 04/20/2025 4:01 PM EDT Body Mass Index 26.03 04/20/2025 4:01 PM EDT Plan of Treatment Upcoming Encounters Date Type Department Care Team (Late st Contact Info) Description 07/24/2025 2:30 PM EST Office Visit Adult Medicine [facility] [address] [place] [phone] Jermain Mtz PA [address] [place] [address] 08/08/2025 9:30 AM EST Office Visit Endocrinology - [place] [address] [place] [address] Amada Reynolds PA [address] [place] [address] Health Maintenance Due Date Last Done Comments Social Influencers of Health Screening 07/31/2025 07/31/2024 Cholesterol Screening (Lipid Panel) 04/20/2030 04/20/2025, 07/31/2024, 07/29/2023 DTaP,Tdap,and Td Vaccines (3 - Td or Tdap) 07/29/2033 07/29/2023, 02/21/2013 Influenza Vaccine Discontinued 07/28/2019, , 06/03/2015, Additional history exists Hepatitis C Screening Completed 07/31/2024 Depression Screening Completed 10/20/2024 COVID-19 Vaccine Discontinued HIB Vaccines Aged Out [...] age to complete this topic Meningococcal B Vaccine Aged Out No l onger eligible based on patient's age to complete this topic Pneumococcal Vaccine: Pediatrics (0 to 5 Years) and At-Risk Patients (6 to 49 Years) Aged Out No longer eligible based on patient's age to complete this topic RSV Immunization Patients Under 20 months Aged Out No longer eligible based on patient's age to complete this topic Varicella Vaccines Aged Out No longer eligible based on patient's age to complete this topic Procedures Procedure Name Priority Date/Time Associated Diagnosis Comments CBC WITH AUTO DIFFERENTIAL Routine 04/20/2025 4:44 PM EDT Screening, anemia, deficiency, iron VITAMIN D 1,25 DIHYDROXY Routine 04/20/2025 4:44 PM EDT Osteoporosis, unspecified osteoporosis type, unspecified pathological fracture presence CBC AND DIFFERENTIAL Routine 04/20/2025 4:44 PM EDT Screening, anemia, deficiency, iron LIPID PANEL WITH REFLEX TO DIRECT LDL Routine 04/20/2025 4:44 PM EDT Familial hypercholesterolemia COMPREHENSIVE METABOLIC PANEL Routine 04/20/2025 4:44 PM EDT Screening for cardiovascular condition VITAMIN D 25 HYDROXY Routine 04/20/2025 4:44 PM EDT Osteoporosis, unspecified osteoporosis type, unspecified pathological fracture presence THYROID STIMULATING HORMONE WITH REFLEX TO FREE T4 AND FREE T3 Routine 04/20/2025 4:44 PM EDT Osteoporosis, unspecified osteoporosis type, unspecified pathological fracture presence HEPATITIS C ANTIBODY Routine 07/31/2024 9:58 AM EST Need for hepatitis C screening test from Last 3 Months or Most Recently Relevant to Health Maintenance Results * Thyroid stimulating hormone with reflex to free t4 and free t3 (04/20/2025 4:44 PM EDT) TSH 1.81 0.40 - 4.00 mcIU/mL LAB CHEMISTRY METHOD 04/20/2025 10:22 PM EDT [facility] Blood Venous blood specimen / Unknown Venipuncture / Unknown 04/20/2025 4:44 PM EDT 04/20/2025 4:44 PM EDT Jermain ROGERS LAB BLOOD ORDERABLES Final Res ult [facility] [address] [place] [address], [place] [phone] * (ABNORMAL) Lipid panel with reflex to direct LDL (04/20/2025 4:44 PM EDT) Cholesterol 231(H) 0 - 200 mg/dL LAB CHEMISTRY METHOD 04/20/2025 7:09 PM EDT [facility] Triglycerides 249(H) 0 - 150 mg/dL LAB CHEMISTRY METHOD 04/20/2025 7:09 PM [facility] HDL 51 >=40 mg/dL LAB CHEMISTRY METHOD 04/20/2025 7:09 PM [facility] LDL Calculated 130(H) 0 - 100 mg/dL LAB CHEMISTRY METHOD 04/20/2025 7:09 PM [facility] VLDL Cholesterol Carlyle 49.8 mg/dL LAB CHEMISTRY METHOD 04/20/2025 7:09 PM [facility] Non HDL Chol. (LDL+VLDL) 180(H) <145 mg/dL LAB CHEMISTRY METHOD 04/20/2025 7:09 PM [facility] Chol/HDL Ratio 4.5(H) 0.0 - 4.4 LAB CHEMISTRY METHOD 04/20/2025 7:09 PM [facility] Blood Venous blood specimen / Unknown Venipuncture / Unknown 04/20/2025 4:44 PM EDT 04/20/2025 4:44 PM EDT us Jermain ROGERS LAB BLOOD ORDERABLES Final Res ult [facility] [address] [place] [address], [place] [phone] * (ABNORMAL) CBC auto differential (04/20/2025 4:44 PM EDT) [facility] WBC 7.4 4.8 - 10.8 K/mcL LAB HEMETOLOGY METHOD 04/20/2025 6:40 PM EDT [facility] RBC 5.40 4.50 - 5.50 M/mcL LAB HEMETOLOGY METHOD 04/20/2025 6:40 PM EDT [facility] Hemoglobin 14.1 13.5 - 17.5 g/dL LAB HEMETOLOGY METHOD 04/20/2025 6:40 PM EDT [facility] Hematocrit 42.9 42.0 - 54.0 % LAB HEMETOLOGY METHOD 04/20/2025 6:40 PM EDT [facility] MCV 79.2 79.0 - 98.0 FL LAB HEMETOLOGY METHOD 04/20/2025 6:40 PM EDT [facility] MCH 26.0(L) 27.0 - 32.0 pcg LAB HEMETOLOGY METHOD 04/20/2025 6:40 PM EDT [facility] MCHC 32.9 32.0 - 37.0 g/dL LAB HEMETOLOGY METHOD 04/20/2025 6:40 PM EDT [facility] RDW 14.5 11.0 - 15.0 % LAB HEMETOLOGY METHOD 04/20/2025 6:40 PM EDT [facility] Platelets 286 130 - 400 K/mcL LAB HEMETOLOGY METHOD 04/20/2025 6:40 PM EDT [facility] MPV 10.9 7.0 - 11.0 FL LAB HEMETOLOGY METHOD 04/20/2025 6:40 PM EDT [facility] NRBC 0.0 <1.0 % LAB HEMETOLOGY METHOD 04/20/2025 6:40 PM EDT [facility] NRBC Absolute 0.00 <0.10 K/mcL LAB HEMETOLOGY METHOD 04/20/2025 6:40 PM EDT [facility] Neutrophils Relative 67.3 % LAB HEMETOLOGY METHOD 04/20/2025 6:40 PM EDT [facility] Lymphocytes Relative 25.5 % LAB [facility]/20[facility] Monocytes Relative 5.6 % [facility]/20[facility] Eosinophils Relative 0.8 % LAB HEMETOLOGY METHOD 04/20/2025 6:40 PM EDT [facility] Basophils Relative 0.5 % LAB HEMETOLOGY METHOD [facility]/20[facility]2025 6[facility] Immature Granulocytes Relative 0.3 % LAB HEMETOLOGY METHOD 04/20[facility]2025 6:[facility] Neutrophils Absolute 4.95 1.50 - 7.00 K/mcL LAB HEMETOLOGY METHOD 04/20/2025 6:40 PM EDT [facility] Lymphocytes Absolute 1.88 1.00 - 5.00 K/mcL LAB HEMETOLOGY METHOD 04/20/2025 6:[facility] Monocytes Absolute 0.41 0.20 - 1.00 K/mcL LAB HEMETOLOGY METHOD 04/20/2025 6:[facility] Eosinophils Absolute 0.06 0.00 - 0.50 K/mcL LAB HEMETOLOGY METHOD 04/20/2025 6:40 PM EDT [facility] Basophils Absolute 0.04 0.00 - 0.20 K/[facility] LAB HEMETOLOGY METHOD 04/20/2025 6:40 PM EDT [facility] Immature Granulocytes Absolute 0.02 0.00 - 0.03 K/mcL LAB HEMETOLOGY METHOD 04/20/2025 6:40 PM EDT [facility] Blood Venous blood specimen / Unknown Venipuncture / Unknown 04/20/2025 4:44 PM EDT 04/20/2025 4:44 PM EDT us Jermain ROGERS LAB BLOOD ORDERABLES Final Res ult [facility] [address] [place] [address], [place] [phone] * Vitamin D 1,25 dihydroxy (04/20/2025 4:44 PM EDT) Pathologist [facility] Vitamin D, 1, 25-Dihydroxy 76 20 - 79 pg/mL 04/23/2025 6:33 PM EDT [facility] Comment: Vitamin D 1, 25 dihydroxy levels should be primarily used to assess Vitamin D status in patients with renal disease and hypercalcemia. Vitamin D 1,25-dihydroxy levels are generally less than 5 pg/mL in end stage renal disease patients. The preferred initial test for assessing Vitamin D status in the general population is Vitamin D 25-hydroxy (VITD). Test performed at [facility], [address], [place] [address] Lorena Dudley MD, PhD - Ghost Writer Blood Venous blood specimen / Unknown Venipuncture / Unknown 04/20/2025 4:44 PM EDT 04/20/2025 4:44 PM EDT us Amada ROGERS LAB BLOOD ORDERABLES Final Result [facility] [address] [place] [address] * (ABNORMAL) Vitamin D 25 hydroxy (04/20/2025 4:44 PM EDT) [facility] Vit D, 25-Hydroxy 25.9(L) 30.0 - 80.0 ng/mL LAB CHEMISTRY METHOD 04/20/2025 10:21 PM EDT [facility] Blood Venous blood specimen / Unknown Venipuncture / Unknown 04/20/2025 4:44 PM EDT 04/20/2025 4:44 PM EDT us Jermain ROGERS LAB BLOOD ORDERABLES Final Res ult [facility] [address] [place] [address], [place] [phone] * Comprehensive metabolic panel (04/20/2025 4:44 PM EDT) [facility] Sodium 136 133 - 145 mmol/L LAB CHEMISTRY METHOD 04/20/2025 7:09 PM [facility] Potassium 4.1 3.5 - 5.5 mmol/L LAB CHEMISTRY METHOD 04/20/2025 7:09 PM [facility] Chloride 102 96 - 110 mmol/L LAB CHEMISTRY METHOD 04/20/2025 7:09 PM [facility] CO2 27 21 - 32 mmol/L LAB CHEMISTRY METHOD 04/20/2025 7:09 PM [facility] Anion Gap 7 3 - 11 LAB CHEMISTRY METHOD 04/20/2025 7:09 PM [facility] Glucose 81 70 - 100 mg/dL LAB CHEMISTRY METHOD 04/20/2025 7:09 PM [facility] BUN 10 5 - 25 mg/dL LAB CHEMISTRY METHOD 04/20/2025 7:09 PM [facility] Creatinine 0.91 0.70 - 1.30 mg/dL LAB CHEMISTRY METHOD 04/20/2025 7:09 PM [facility] eGFR 107 >=60 mL/min/1. 73m2 LAB CHEMISTRY METHOD 04/20/2025 7:09 PM [facility] Comment:Calculation based on the Chronic Kidney Disease Epidemiology Collaboration (CKD-EPI) equation refit without adjustment for race. BUN/Creatinine Ratio 11.0 LAB CHEMISTRY METHOD 04/20/2025 7:09 PM [facility] Calcium 9.9 8.5 - 10.5 mg/dL LAB CHEMISTRY METHOD 04/20/2025 7:09 PM [facility] AST (SGOT) 20 10 - 42 unit/L LAB CHEMISTRY METHOD 04/20/2025 7:09 PM [facility] ALT (SGPT) 55 10 - 60 unit/L LAB CHEMISTRY METHOD 04/20/2025 7:09 PM [facility] Alkaline Phosphatase 106 42 - 121 unit/L LAB CHEMISTRY METHOD 04/20/2025 7:09 PM [facility] Total Protein 7.8 6.0 - 8.0 g/dL LAB CHEMISTRY METHOD 04/20/2025 7:09 PM [facility] Albumin 4.7 3.2 - 5.0 g/dL LAB CHEMISTRY METHOD 04/20/2025 7:09 PM [facility] Total Bilirubin 0.7 0.0 - 1.4 mg/dL LAB CHEMISTRY METHOD 04/20/2025 7:09 PM [facility] Blood Venous blood specimen / Unknown Venipuncture / Unknown 04/20/2025 4:44 PM EDT 04/20/2025 4:44 PM EDT us Jermain ROGERS LAB BLOOD ORDERABLES Final Res ult [facility] [address] [place] [address], * Hepatitis C antibody (07/31/2024 9:58 AM EST) Hepatitis C Antibody Negative Negative LAB CHEMISTRY METHOD 07/31/2024 12:51 PM EST [facility] Blood Venous blood specimen / Unknown Venipuncture / Unknown 07/31/2024 9:58 AM EST 07/31/2024 9:58 AM EST us Jermain ROGERS LAB BLOOD ORDERABLES Final Res ult [facility] [address] [place] [address], from Last 3 Months or Most Recently Relevant to Health Maintenance Insurance [facility] Care Teams Ticket Printer And Tagger Relationship Specialty Start Date End Date Roxy Winkler MD [address] [place] [id number] PCP - General Internal Medicine 11/23/17
== END 2025-05-24 15:28 | disposition home or self-care (01) ==
LOC: HO.PMC 14:48
PROVIDERS: PCP Internal Medicine; Visit Provider Nurse Practitioner Family
DX: M54.9 Dorsalgia, unspecified (principal); G89.29 Other chronic pain; G89.4 Chronic pain syndrome; M41.9 Scoliosis, unspecified; M47.816 Spondylosis without myelopathy or radiculopathy, lumbar region; M81.0 Age-related osteoporosis without current pathological fracture; M54.51 Vertebrogenic low back pain; M54.89 Other dorsalgia
CPT/HCPCS: 99204

== ENCOUNTER → 2025-05-24 14:48 | Outpatient (BNVA) | payer OTHER, SELFPAY | PROVIDERS: PCP Internal Medicine; Visit Provider Nurse Practitioner Family | DX: M41.9 Scoliosis, unspecified (principal); M54.9 Dorsalgia, unspecified; G89.29 Other chronic pain; M47.816 Spondylosis without myelopathy or radiculopathy, lumbar region; M54.51 Vertebrogenic low back pain; M81.0 Age-related osteoporosis without current pathological fracture | CPT/HCPCS: 99202 ==

== ENCOUNTER 2025-08-31 13:12 | Outpatient (AMB) | payer OTHER, SELFPAY ==
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
[2025-08-31 13:17] VITALS: BP 162/95; PULSE 100; O2SAT 100; BMI 26.3
[2025-08-31 13:18] VITALS: BP 151/93
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
--- OUTSIDE RECORDS SUMMARY | 2025-08-31 18:50 | XMS_ITS | Encounter Summary ---
Author Organization [employer] [facility] Address [address] [place] [address] Care Team Providers Care Moisture Meter Operator Name Role Phone Roxy Winkler MD Primary Care Prov ider Reason for Visit * Reason Onset Date Comments Med Refill Rash 10/17/2024 Encounter Details Date Type Department Care Team (Late st Contact Info) Description 10/17/2024 Nurse Triage Adult Medicine [facility] [address] [place] [address] Jermain Mtz PA [address] [place] [address] Social History Tobacco Use Types Packs/Day Years [...] for your loved ones. For example, child development teacher or elderly care for an older [...] your living situation? Unrecognized valu e 07/31/2024 Sex and Gender Information Value Date Recorded [...] N/A Protocols used: Rash or Redness - [id number] * Roxy Santos MA - 10/18/2024 2:07 PM EST Images from the original note were not included. - called patient , states he has a rash on his right hand that is not going away, has tried OTC medications. Asked patient to send a picture of his hand through [employer]. Image attached below. Does patient need to [...] 08/07/2026 2:45 PM EST Office Visit Endocrinology [address] [place] [address] Amada Reynolds PA [address] [place] [address] documented as of this encounter Visit Diagnoses Not on filedocumented in this encounter Additional Health Concerns Assessment Noted Time PHQ-9 Depression Total Score: 0 07/31/20 24 8:20 AM EST documented as of this encounter Care Teams Moisture Meter Operator Relationship Specialty Start Date End Date Roxy Winkler MD [address] [place] [phone] PCP - General Internal Medicine 11/23/17 documented as of this encounter
== END 2025-08-31 13:31 | disposition home or self-care (01) ==
LOC: HO.PMC 13:12
PROVIDERS: PCP Internal Medicine; Visit Provider Nurse Practitioner Family
DX: M41.9 Scoliosis, unspecified (principal); M54.9 Dorsalgia, unspecified; G89.29 Other chronic pain; M47.816 Spondylosis without myelopathy or radiculopathy, lumbar region; M54.51 Vertebrogenic low back pain; G89.4 Chronic pain syndrome; M25.562 Pain in left knee
CPT/HCPCS: 99214

== ENCOUNTER → 2025-08-31 13:12 | Outpatient (BNVA) | payer OTHER, SELFPAY | PROVIDERS: PCP Internal Medicine; Visit Provider Nurse Practitioner Family | DX: G89.4 Chronic pain syndrome (principal); M47.816 Spondylosis without myelopathy or radiculopathy, lumbar region; M54.51 Vertebrogenic low back pain; M25.562 Pain in left knee; M41.9 Scoliosis, unspecified | CPT/HCPCS: 99212 ==